=== PATIENT | male | born 1945 | race African-American/Black ===

== ENCOUNTER 2016-08-13 13:58 | Inpatient (IN) | payer OTHER ==
--- NOTE | 2016-08-13 14:02 | PDOC ---
History of Present Illness - General Chief Complaint: CVA/TIA Stated Complaint: CVA Time Seen by Provider: 08/13/16 14:00 ED Treatment Course - RADIOLOGY Radiology Studies Ordered: Category Date Time Status HEAD CT (STROKE) [CT] Stat CT Scan 08/13/16 14:00 Ordered CHEST X-RAY PORTABLE* [RAD] Stat Radiology 08/13/16 14:01 Ordered
--- NOTE | 2016-08-13 14:05 | PDOC ---
History of Present Illness - General History Source: Patient, EMS Exam Limitations: Clinical Condition - History of Present Illness Initial Comments: 08/13/16 13:49 The patient is a 71 year old male, with a significant past medical history of HTN, HDL, CVA (October 2015 with no deficits) and bilateral blindness, who present to the emergency department via EMS today for further evaluation of left facial droop and right arm weakness for approximately 40 minutes prior to ER arrival. Information was obtained by EMS. As per EMS, at baseline the patient is alert, oriented, verbal and ambulatory. Today , the patient was in his home, watching television, when his home health aide noted that the patient was nonverbal, with left facial droop. EMS was activated. 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 Patient arrived to the ED at 13:49 (not registered until 13:58) and code ashley was activated at 13:51. No vomiting, headache No major surgeries No intestinal bleeding <Bunny hWitlock - Last Filed: 08/13/16 15:23> <Abhishek Xiong - Last Filed: 08/13/16 15:42> - General Chief Complaint: CVA/TIA Stated Complaint: CVA Time Seen by Provider: 08/13/16 13:58 Past History <Bunny Whitlock - Last Filed: 08/13/16 15:23> <Abhishek Xiong - Last Filed: 08/13/16 15:42> - Past Medical History Allergies/Adverse Reactions: Allergies Allergy/AdvReac Type Severity Reaction Status Date / Time No Known Allergies Allergy Verified 08/13/16 14:15 *Physical Exam - Physical Exam Comments: 08/13/16 13:49 GENERAL: Awake. Alert. Following commands and appropriately nodding yes/no to questions HEAD: Normal with no signs of trauma. EYES: Bilateral opacification of the pupils at baseline no visual acuity, extraocular movements intact with some horizontal nystagmus noted. ENT: Ears normal, nares patent, oropharynx clear without exudates. Moist mucous membranes. NECK: Normal range of motion, supple without lymphadenopathy, JVD, or masses. LUNGS: Breath sounds equal, clear to auscultation bilaterally. No wheeze/ crackles. HEART: Tachycardic, irregularly rate and rhythm. ABDOMEN: Soft/nontender/nondistended. BS wnl. No guarding or rebound. EXTREMITIES: Normal range of motion, no edema. No clubbing or cyanosis. No cords, erythema, or tenderness. NEUROLOGICAL: See NIHSS SKIN: Warm, Dry, normal turgor, no rashes or lesions noted. <MelinaalyxBunny - Last Filed: 08/13/16 15:23> NIH Stroke Scale - Last Known Well Date/Time & Onset Date Last Known Well: 08/13/16 Time Last Known Well: 13:10 - Initial Evaluation Level of consciousness: Alert Ask patient the month and their age: Answers both correctly Ask patient to open & close eyes; make fist and let go: Obeys both correctly Best gaze (horizontal eye movement): Normal Visual field testing: No visual field loss (baseline blind) Facial paresis (Show teeth/raise eyebrows/close eyes tight): Partial paralysis ( total or near paralysis of lower face) Motor Function: Left Arm: Normal Motor Function: Right Arm: No movement Motor Function: Left Leg: Normal (extends leg 30 degrees for 5 seconds without drift) Motor Function: Right Leg: Some effort against gravity Limb Ataxia: No ataxia Sensory(Use pinprick test arms,legs,trunk,face/side to side): Normal Best language (Describe picture, name items, read sentences): Mute Dysarthria (read several words): Near unintelligible or unable to speak Extinction and Inattention: No abnormality - Total Score NIH Stroke Scale Score: 13 <Abhishek Xiong - Last Filed: 08/13/16 15:42> tPA Exclusion Checklist 0-3hr - Thrombolytic Therapy Candidate Is the patient eligible for Thrombolytic Therapy?: Yes - Exclusion Criteria 0-3hr SBP greater than 185 or DBP greater than 110mmHg despite tx: No Recent IC/spinal surgery,head trauma or stroke w/in last 3mo: No Hx of previous IC hemorrhage, IC neoplasm, AVM or aneurysm: No Active internal bleeding: No Blding diathesis(low plt ct, inc PTT,INR>1.7 or use of NOAC): No Symptoms suggest subarachnoid hemorrhage: No CT demonstrates multilobar infarct(>1/3 cerebral hemiphere): No Arterial puncture at noncompressible site in previous 7 days: No Blood glucose concentration less than 50mg/dL (2.7mmol/L): No - Relative Exclusion Criteria 0-3h Life expectancy <1yr/severe co-morbid illness/STAFF TECHNOLOGIST on admit: No : No Patient/family refused: No Rapid improvement: No Stroke severity too mild: No Recent acute NE (w/in previous 3 months): No Seizure at onset with postictal residual neuro impairments: No Major surgery or serious trauma w/in previous 14 days: No Recent GI or hemorrhage (w/in previous 21 days): No <Abhishek Xiong - Last Filed: 08/13/16 15:42> Heart Score/ECG Review #1 ECG reviewed & interpreted by me at: 14:23 Compared to previous ECG there are: Previous ECG unavail 08/13/16 14:29 Afib at 81. QTC 439. No acute ischemia. <Abhishek Xiong - Last Filed: 08/13/16 15:42> Critical Care Time/MDM Note - Medical Decision Making Note: Patient rushed to CT on 13:54 Dr. Jimmy Hunter called at 13:57 Called office at 14:02. Informed that Neurologist, Dr. Charlotte Alfaro is in house. Response by Neurologist, Charlotte Alfaro. Case was discussed. Patient is a candidate for TPA. Accepts case. ETA in approximately 10 minutes. Neurology at bedside 14:20 TPA administered at 14:39 14:56. Overhead page to Staffing Operations Manager, Dr. Zev Moe. Case was discussed. Accepts case to the ICU. 15:00 MicroBlogged Hospitalist. 15:16 Hospitalist, Dr. Duane Franco responded to the MicroBlog. Case was discussed. Accepts case. Documentation prepared by Bunny Whitlock, acting as hospitalist medical director for Abhishek Xiong MD. <Bunny Whitlock - Last Filed: 08/13/16 15:23> Total Critical Care Time: 105 Critical Care Statement: The care of this patient involved high complexity decision making to prevent further life threatening deterioration of the patient 's condition and/or to evalute & treat vital organ system(s) failure or risk of failure. - Medical Decision Making Note: 08/13/16 14:37 A portion of this note was documented by scribe services under my direction. I have reviewed the details of the note, within reason, and agree with the documentation with the following case summary and management plan written by me. 71-year-old male with no known past medical history brought in by EMS for acute stroke. Patient is baseline blind, but otherwise conversant and ambulatory. At around 1: 10 PM his home health aide noticed that he abruptly was unable to speak, had right facial weakness and right arm weakness. EMS was activated and stroke notification called. Patient arrived here at 1358, he was seen immediately upon arrival and code ho activated. Patient was noted to be in atrial fibrillation on monitor, but he has no known history of atrial fibrillation and denies being on any blood thinners. D/W Dr. Alfaro of neurology, who is on her way to the ED. NIH 13 2/2 R facial paralysis, aphasia, R arm paralysis, R leg weakness. Pt has no other complaints, denies BURTON. He was asked multiple times that this was new and acute onset and he nodded yes. He is following all commands clearly. Neurology at bedside at 1420. Pt's BP markedly elevated 225/120 and HR elevated , Afib with RVR. He is TPA candidate except for BP. Given Lopressor 10mg IV with rate control to 80s, BP to 210 systolic. Given Labetalol 20mg IV with BP improved to 195 systolic. TPA ordered (plts and INR WNL) but not yet TPA candidate given markedly elevated BP as of 1443. Giving additional dose of labetalol. 08/13/16 14:49 Pt's BP controlled to 180 systolic after Lopressor 10 and Labetalol 30mg (10mgx3 ). With neurology at bedside, decision made to start TPA. Bolus given at 1439 and infusion subsequently. Will start labetalol drip. 08/13/16 15:03 TPA drip infusing, labetalol drip infusing with maintain blood pressure of 180/ 110. CBC normal. Chemistries notable for troponin of 0.06, creatinine 1.6. Will proceed with admission to ICU. 08/13/16 15:[address] Franco for admission, Accepted to ICU by Dr. Moe. Neuro unchanged with dense aphasia and R sided weakness. BP improved awaiting ICU. <Abhishek Xiong - Last Filed: 08/13/16 15:42> Discharge Disposition <Bunny Whitlock - Last Filed: 08/13/16 15:23> - Discharge Dispostion Admit: Yes <Abhishek Xiong - Last Filed: 08/13/16 15:42> - Diagnosis CVA (cerebral vascular accident) Qualifiers: CVA mechanism: other Qualified Code(s): I63.8 - Other cerebral infarction - Discharge Dispostion Condition at time of disposition: Guarded ED Treatment Course - LABORATORY CBC & Chemistry Diagram: 08/13/16 14:00 08/13/16 14:00 - RADIOLOGY Radiograph Interpretation: 08/13/16 14:27 EXAM: CT/HEAD CT (STROKE) IMPRESSION: Rule out CVA. CT scan of the brain C-. Findings. Serial axial images of the brain were obtained from foramen magnum to the cranial vertex without intravenous contrast, coronal, sagittal reconstruction images.. There is no evidence of acute subarachnoid hemorrhage, acute intra-axial or extra- axial fluid collection consistent with subdural or epidural hematoma. No mass effect, midline shift, acute ischemic changes, herniation or edema is present. Old infarct is observed in the inferior medial aspect of the right cerebellum. Old postischemic encephalomalacia is observed in the right inferior occipital lobe, right hippocampus. Chronic ischemic changes are observed in the right frontal lobe, medial aspect of the right occipitoparietal region. Small lacunar infarct versus perivascular space is seen in the anterior limb of the internal capsule. The cortical sulci, sylvian fissures, perimesencephalic cisterns are not effaced. Examination of the bone windows show no fracture. The visualized paranasal sinuses and mastoid air cells are clear. Extensive calcification of the right ocular globe sclera. Hyperdense left ocular globe. Intracranial vascular calcifications are noted. Impression. No evidence of acute intracranial hemorrhage, edema, midline shift, mass effect, or skull fracture. No CT evidence of acute territorial infarction. Old infarct is observed in the inferior medial aspect of the right cerebellum. Old postischemic encephalomalacia is observed in the right inferior occipital lobe, right hippocampus. Chronic ischemic changes are observed in the right frontal lobe, medial aspect of the right occipitoparietal region. Small lacunar infarct versus perivascular space is seen in the anterior limb of the internal capsule. Critical correlation, follow-up imaging may be considered if indicated. <Bunny Whitlock - Last Filed: 08/13/16 15:23> - LABORATORY CBC & Chemistry Diagram: 08/13/16 14:00 08/13/16 14:00 <Abhishek Xiong - Last Filed: 08/13/16 15:42>
[2016-08-13] MEDS ORDERED: ALTEPLASE 100 MG VIAL IVPB STA (14:11)
[2016-08-13] MEDS ORDERED: ALTEPLASE 100MG 100 MG IVPB ONE (14:17)
[2016-08-13] MEDS ORDERED: METOPROLOL TARTRATE 5 MG/5 ML VIAL ONE (14:18)
[2016-08-13] MEDS ORDERED: LABETALOL HCL 5 MG/1 ML (200MG/40ML VIAL) IVPB ONE ×2 (14:25→14:57)
[2016-08-13 14:28] LABS: BASOPHIL 0.6 % (0-2.0); EOSINOPHIL 5.3 % (0-4.5); INR 1.23 (0.82-1.09); MCH 28.9 pg (25.7-33.7); MCHC 32.5 g/dl (32.0-35.9); MEAN CELL VOLUME 88.9 fl (80-96); MEAN PLT VOLUME 10.1 fl (7.5-11.1); NEUTROPHILS 47.6 % (42.8-82.8); PLATELET COUNT 223 K/MM3 (134-434); PROTHROMBIN TIME (PATIENT) 13.6 SEC (9.98-11.88); RDW 12.7 % (11.9-15.9); WHITE BLOOD COUNT 8.8 K/mm3 (4.0-10.0)
[2016-08-13] MEDS ORDERED: METOPROLOL TARTRATE 5 MG/5 ML VIAL IVPUSH ONE (14:30)
[2016-08-13] MEDS ORDERED: LABETALOL HCL 5 MG/1 ML (100MG/20 ML VIAL) IVPUSH ONE ×2 (14:30→14:48)
[2016-08-13 14:46] LABS: ALBUMIN 4.1 g/dl (3.4-5.0); BILIRUBIN,TOTAL 0.4 mg/dL (0.2-1.0); CALCIUM 8.6 mg/dL (8.5-10.1); CREATININE 1.6 mg/dL (0.7-1.3); TOT PROT 8.4 g/dl (6.4-8.2)
[2016-08-13 14:47] LABS: TROPONIN I 0.06 ng/ml (0.00-0.05)
--- NOTE | 2016-08-13 14:48 | CONSULT ---
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 Information was obtained by EMS. As per EMs, at baseline the patient is alert, oriented, verbal and ambulatory. Today , the patient was in his home, watching television, when his home health aide noted that the patient was nonverbal, with right facial droop. EMS was activated. 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 Patient arrived to the ED at 13:49 and code MyVerse was activated at 13:51. 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 Cardio/Vascular: Yes: CAD, HTN, Hyperlipdemia - Alcohol/Substance Use Hx Alcohol Use: No - Smoking History Smoking history: Never smoked Have you smoked in the past 12 months: No - Social History Usual Living Arrangement: Other Home Medications - Allergies Allergies/Adverse Reactions: Allergies Allergy/AdvReac Type Severity Reaction Status Date / Time No Known Allergies Allergy Verified 08/13/16 14:15 Review of Systems - Review of Systems Constitutional: reports: No Symptoms Eyes: reports: Other (bilateral blindness) Neck: reports: No Symptoms Cardiovascular: reports: No Symptoms Respiratory: reports: No Symptoms Endocrine: reports: No Symptoms Hematology/Lymphatic: reports: No Symptoms Psychiatric: reports: No Symptoms Physical Exam-Neuro Vital Signs: Vital Signs Temperature 98.7 F 08/13/16 14:17 Pulse Rate 110 H 08/13/16 14:17 Respiratory Rate 20 08/13/16 14:17 Blood Pressure 184/134 08/13/16 14:17 O2 Sat by Pulse Oximetry (%) 100 08/13/16 14:17 Constitutional: Yes: Well Nourished Neck: Yes: Supple, Trachea Midline Cardiovascular: Yes: Regular Rate and Rhythm, S1, S2 Respiratory: Yes: Regular, CTA Bilaterally Gastrointestinal: Yes: Normal Bowel Sounds, Soft Renal/: Yes: WNL Musculoskeletal: Yes: Muscle Weakness Edema: No Labs: CBC, BMP 08/13/16 14:00 INR, PTT INR 1.23 (0.82-1.09) H 08/13/16 14:00 - Neuro Exam Level Of Consciousness: Yes: Alert, Oriented to Person Eyes: Yes: Nystagmus Speech: Broca's Aphasia Dominant Hand: Right Cranial Nerves II-XII Intact: No DTR's: 1+ Left Bicep, 1+ Right Bicep, 1+ Left Tricep, 1+ Right Tricep, 1+ Left Brachioradialis, 1+ Right Brachioradialis, 1+ Left Achilles, 1+ Right Achilles Babinski: Absent Response to light touch: Abnormal Response to pain prick: Abnormal Response to temperature: Abnormal Response to vibration: Abnormal Motor Strength: 0/5: Right Arm, 5/5: Left Arm, Left Leg, Right Leg Gait: Deferred (NIHS is 11p 2p.not answering questions, 2p RCFP, 3p RUE weakness, 1p numbness RUE, 1p aphasia, 2p dysarthria, ) Imaging - Results Cat Scan: Report Reviewed, Image Reviewed Problem List - Problems (1) CVA (cerebral vascular accident) Code(s): I63.9 - CEREBRAL INFARCTION, UNSPECIFIED Assessment/Plan The patient is a 71 year old male, with a significant past medical history of HTN, HDL, CVA (October 2015 with no deficits) and bilateral blindness, who present to the emergency department via EMS today for further evaluation of left facial droop and right arm weakness for approximately 40 minutes prior to ER arrival. Information was obtained by EMS. As per EMs, at baseline the patient is alert, oriented, verbal and ambulatory. Today , the patient was in his home, watching television, when his home health aide noted that the patient was nonverbal, with left facial droop. EMS was activated. 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 Patient arrived to the ED at 13:49 and code ashley was activated at 13:51. NIHS is 11p. If we consider blindness is 14p. due to blindness LSN was 1.10pm. Symptoms started 1.11pm. tpa bolus 2.39pm. Impression: acute ischemic stroke. Plan: - admission to ICU, ivtpa patient. - stroke ivtpa order set. - keep SBP under 140mmHg - MRI brain stroke protocol - echocardiogram, doppler carotids, DVT prophylaxis. - PT/OT/ST. Will follow. Critical care time spent in ED. 40min.
[2016-08-13] MEDS: LABETALOL HCL INJECTION 1,000 MG in SODIUM CHLORIDE 800 ML IV SCH ×4 (15:34→22:00)
--- NOTE | 2016-08-13 15:59 | HP ---
CHIEF COMPLAINT: cva, a fib, htn emergency HISTORY OF PRESENT ILLNESS: H/o obtained from ed notes as patient is unable to speak, patient knobs his head on questioning The patient is a 71 year old male, with a significant past medical history of HTN, HDL, CVA (October 2015 with no deficits) and bilateral blindness, who present to the emergency department via EMS today for further evaluation of left facial droop and right arm weakness for approximately 40 minutes prior to ER arrival. Information was obtained by EMS. As per EMS, at baseline the patient is alert, oriented, verbal and ambulatory. Today , the patient was in his home, watching television, when his home health aide noted that the patient was nonverbal, with left facial droop. EMS was activated. Patient was noted to be in atrial fibrillation (however no prior hx; not on anticoagulants). Patient had recieved Tpa in ED. Denies nausea, vomiting, headache, chest pain , sob, diarrhiea, constipation, burning micturation. Patient answered by knobing his head. ER course was notable for: (1) Ct head, cbc, cmp (2)Tpa, labetalol drip (3) cxr, Recent Travel:no PAST MEDICAL HISTORY: HTN, hld, cva PAST SURGICAL HISTORY: Social History: Smoking: Alcohol: Drugs: Family History: Allergies NKDA No Known Allergies Allergy (Verified 08/13/16 14:15) HOME MEDICATIONS: not available REVIEW OF SYSTEMS patient knobs his head on questioning CONSTITUTIONAL: Absent: fever, chills, diaphoresis, CARDIOVASCULAR: Absent: chest pain, syncope, palpitations, RESPIRATORY: Absent: cough, shortness of breath, GASTROINTESTINAL: Absent: abdominal pain, abdominal distension, nausea, vomiting, diarrhea, GENITOURINARY: Absent: dysuria, frequency, urgency, hesitancy, flank pain MUSCULOSKELETAL: unable to move right upper limb HEMATOLOGIC/IMMUNOLOGIC: Absent: easy bleeding, easy bruising, neurological Absent: headache, Present : right side facial weakness and right upper limb weakness PHYSICAL EXAMINATION Vital Signs - 24 hr 08/13/16 08/13/16 08/13/16 14:15 14:17 14:28 Temperature 98.7 F Pulse Rate 91 H 110 H Pulse Rate [ 85 Apical] Respiratory 20 17 Rate Blood Pressure 184/134 184/134 Blood Pressure 205/126 [Left Arm] O2 Sat by Pulse 100 100 Oximetry (%) 08/13/16 08/13/16 08/13/16 14:30 14:36 14:40 Temperature Pulse Rate Pulse Rate [ 71 74 80 Apical] Respiratory 18 18 18 Rate Blood Pressure Blood Pressure 198/119 180/125 182/131 [Left Arm] O2 Sat by Pulse 100 100 100 Oximetry (%) 08/13/16 08/13/16 08/13/16 14:45 14:50 14:55 Temperature Pulse Rate Pulse Rate [ 82 74 75 Apical] Respiratory 19 18 18 Rate Blood Pressure Blood Pressure 186/119 176/117 183/125 [Left Arm] O2 Sat by Pulse 100 100 100 Oximetry (%) 08/13/16 08/13/16 15:10 15:55 Temperature 2 F L Pulse Rate Pulse Rate [ 71 74 Apical] Respiratory 18 18 Rate Blood Pressure Blood Pressure 160/108 189/121 [Left Arm] O2 Sat by Pulse 100 100 Oximetry (%) GENERAL: Awake, alert, and fully oriented, answers by knobbing his head HEAD: Normal with no signs of trauma. EYES: Bilateral opacification of the pupils at baseline no visual acuity, extraocular movements intact EARS, NOSE, THROAT: Ears normal, nares patent, oropharynx clear without exudates. Moist mucous membranes. NECK: Normal range of motion, supple without lymphadenopathy, LUNGS: Breath sounds equal, clear to auscultation bilaterally. No wheezes, and no crackles. No accessory muscle use. HEART: Tachycardia, irregular, no murmur, s1s2 normal ABDOMEN: Soft, nontender, not distended, normoactive bowel sounds, no guarding, no rebound, no masses. No hepatomegaly or splenomegaly. UPPER extremity; not moving right upper limb LOWER EXTREMITIES Normal range of motion, no edema. No clubbing or cyanosis. No cords, erythema, or tenderness. NEUROLOGICAL: facial paralysis on left side, tongue deviation on right side, smile deviation on right side, closes both eyes normally, losss of sensation on left forehead, and face, b/l lower limb moving, power 5/5, sensations intact, reflexes normal left upper limb power 5/5, sensation to fine touch intact, reflexes normal right upper limb power 0/5, sensation to fine touch not present PSYCHIATRIC: Cooperative. Appropriate mood and affect. SKIN: Warm, dry, normal turgor, no rashes or lesions noted. Laboratory Results - last 24 hr 12/27/16 12/27/16 12/27/16 14:00 14:00 14:00 WBC 8.8 RBC 5.02 Hgb 14.5 Hct 44.6 MCV 88.9 MCHC 32.5 RDW 12.7 Plt Count 223 MPV 10.1 Neutrophils % 47.6 Lymphocytes % 37.7 Monocytes % 8.8 Eosinophils % 5.3 H Basophils % 0.6 INR 1.23 H Sodium 139 Potassium 3.6 Chloride 101 Carbon Dioxide 29 Anion Gap 9 BUN 16 Creatinine 1.6 H Creat Clearance w eGFR 42.95 POC Glucometer Random Glucose 139 H Calcium 8.6 Total Bilirubin 0.4 AST 21 ALT 19 Alkaline Phosphatase 95 Creatine Kinase 352 H Creatine Kinase Index 0.9 CK-MB (CK-2) 3.084 CK-MB (CK-2) Rel Index Troponin I 0.06 H Total Protein 8.4 H Albumin 4.1 Triglycerides 163 H Cholesterol 211 H Total LDL Cholesterol 143 H HDL Cholesterol 54 Blood Type Antibody Screen 08/13/16 08/13/16 08/13/16 14:00 14:17 15:04 WBC RBC Hgb Hct MCV MCHC RDW Plt Count MPV Neutrophils % Lymphocytes % Monocytes % Eosinophils % Basophils % INR Sodium Potassium Chloride Carbon Dioxide Anion Gap BUN Creatinine Creat Clearance w eGFR POC Glucometer 173.78114 Random Glucose Calcium Total Bilirubin AST ALT Alkaline Phosphatase Creatine Kinase Creatine Kinase Index CK-MB (CK-2) CK-MB (CK-2) Rel Index Cancelled Troponin I Total Protein Albumin Triglycerides Cholesterol Total LDL Cholesterol HDL Cholesterol Blood Type B POSITIVE Antibody Screen Negative ASSESSMENT/PLAN: The patient is a 71 year old male, with a significant past medical history of HTN, HDL, CVA (October 2015 with no deficits) and bilateral blindness, who present to the emergency department via EMS today for further evaluation of left facial droop and right arm weakness and was diagnosed to have cva, a fib and htn emergency. Patient recieved Tpa in ED CVA- ischemic stroke right upper limb and right facial side weakness received Tpa in ED, symptoms still persist monitor for bleeding, nausea, vomiting, headache neurology consult appreciated admission to ICU, keep SBP under 140mmHg follow MRI brain stroke protocol follow echocardiogram, doppler carotids, follow PT/OT/ST. afib echo got one dose of metoprolol 20 mg in ed cardiac monitoring cardiology consult on labetalol drip HTN emergency on labetalol drip 2mg/min keep sbp below 140 evelin could be due to htn follow creatnine renal usg hld atorvastatin 40mg daily elevated trop i could be due to htn trend trop i repeat ekg cardiac monitoring cardiology consult don't repeat labs with in 24 hours of tpa, patient can bleed fluid ; ns 42 ml/hr electrolyte; after 24 hour nutrition npo dvt pro; low risk , patient got tpa gi pro : protonix Visit type - Emergency Visit Emergency Visit: Yes ED Registration Date: 08/13/16 Care time: The patient presented to the Emergency Department on the above date and was hospitalized for further evaluation of their emergent condition. - New Patient This patient is new to me today: Yes Date on this admission: 08/13/16 - Critical Care Critical Care patient: Yes Total Critical Care Time (in minutes): 45 Critical Care Statement: The care of this patient involved high complexity decision making to prevent further life threatening deterioration of the patient 's condition and/or to evalute & treat vital organ system(s) failure or risk of failure.
[2016-08-13 16:37] LABS: URINE APPEARANCE CLEAR; URINE BILIRUBIN NEGATIVE (NEGATIVE); URINE COLOR STRAW; URINE GLUCOSE (UA) NEGATIVE (NEGATIVE); URINE KETONE NEGATIVE (NEGATIVE); URINE LEUK ESTERASE NEGATIVE (NEGATIVE); URINE NITRITE NEGATIVE (NEGATIVE); URINE UROBILINOGEN NEGATIVE E.U./dl (0.2-1.0)
--- NOTE | 2016-08-13 16:51 | CONSULT ---
Consultation: REQUESTING PROVIDER: CONSULT REQUEST: We have been asked to medically evaluate this patient for CVA HISTORY OF PRESENT ILLNESS: Patient non-verbal and history was taken from ED note. 71 year old male, with a significant past medical history of HTN, HDL, CVA (October 2015 with no deficits ) and bilateral blindness, who present to the emergency department via EMS today for further evaluation of left facial droop and right arm weakness for approximately 40 minutes prior to ER arrival. Information was obtained by EMS. As per EMS, at baseline the patient is alert, oriented, verbal and ambulatory. Today , the patient was in his home, watching television, when his home health aide noted that the patient was nonverbal, with left facial droop. EMS was activated. Patient was noted to be in atrial fibrillation (however no prior hx ; not on anticoagulants). Patient had recieved Tpa in ED. REVIEW OF SYSTEMS: Unable to obtain as the patient is non-verbal. PHYSICAL EXAMINATION Vital Signs - 24 hr 08/13/16 08/13/16 08/13/16 13:58 14:15 14:17 Temperature 98.7 F Pulse Rate 91 H 110 H Pulse Rate [ Apical] Respiratory 20 Rate Blood Pressure 184/134 184/134 Blood Pressure [Left Arm] Blood Pressure [Right Arm] O2 Sat by Pulse 100 100 Oximetry (%) 08/13/16 08/13/16 08/13/16 14:28 14:30 14:36 Temperature Pulse Rate Pulse Rate [ 85 71 74 Apical] Respiratory 17 18 18 Rate Blood Pressure Blood Pressure 205/126 198/119 180/125 [Left Arm] Blood Pressure [Right Arm] O2 Sat by Pulse 100 100 100 Oximetry (%) 08/13/16 08/13/16 08/13/16 14:39 14:40 14:45 Temperature 97.5 F L Pulse Rate 74 Pulse Rate [ 80 82 Apical] Respiratory 18 18 19 Rate Blood Pressure 182/131 Blood Pressure 182/131 186/119 [Left Arm] Blood Pressure [Right Arm] O2 Sat by Pulse 100 100 100 Oximetry (%) 08/13/16 08/13/16 08/13/16 14:50 14:55 15:10 Temperature Pulse Rate Pulse Rate [ 74 75 71 Apical] Respiratory 18 18 18 Rate Blood Pressure Blood Pressure 176/117 183/125 160/108 [Left Arm] Blood Pressure [Right Arm] O2 Sat by Pulse 100 100 100 Oximetry (%) 08/13/16 08/13/16 08/13/16 15:15 15:27 15:34 Temperature Pulse Rate Pulse Rate [ 84 78 75 Apical] Respiratory 18 Rate Blood Pressure Blood Pressure 186/102 [Left Arm] Blood Pressure 166/108 186/102 171/117 [Right Arm] O2 Sat by Pulse 100 99 Oximetry (%) 08/13/16 08/13/16 15:45 15:55 Temperature 2 F L Pulse Rate Pulse Rate [ 74 88 Apical] Respiratory 18 19 Rate Blood Pressure Blood Pressure 189/121 [Left Arm] Blood Pressure 189/121 179/107 [Right Arm] O2 Sat by Pulse 100 97 Oximetry (%) GENERAL: obtunded and non verbal HEAD: Normal with no signs of trauma. EYES: Bilateral opacification of the pupils at baseline , no visual acuity. EARS, NOSE, THROAT: Ears normal, nares patent, oropharynx clear without exudates. Moist mucous membranes. NECK: Normal range of motion, supple without lymphadenopathy, JVD, or masses. LUNGS: Breath sounds equal, clear to auscultation bilaterally. No wheezes, and no crackles. No accessory muscle use. HEART:tachycardic normal S1 and S2 without murmur, rub or gallop. ABDOMEN: Soft, nontender, not distended, normoactive bowel sounds, no guarding, no rebound, no masses. No hepatomegaly or splenomegaly. MUSCULOSKELETAL: Normal range of motion at all joints. No bony deformities or tenderness. No CVA tenderness. UPPER EXTREMITIES: 2+ pulses, warm, well-perfused. No cyanosis. No clubbing. Cap refill <2 seconds. No peripheral edema. LOWER EXTREMITIES: 2+ pulses, warm, well-perfused. No calf tenderness. No peripheral edema. NEUROLOGICAL: facial paralysis on left side, tongue deviation on right side, smile deviation on right side, closes both eyes normally, losss of sensation on left forehead, and face, b/l lower limb moving, power 5/5, sensations intact, reflexes normal left upper limb power 5/5, sensation to fine touch intact, reflexes normal right upper limb power 0/5, sensation to fine touch not present PSYCHIATRIC: non verbal, responding only to painfull stimuli. Laboratory Results - last 24 hr 08/13/16 08/13/16 08/13/16 14:00 14:00 14:00 WBC 8.8 RBC 5.02 Hgb 14.5 Hct 44.6 MCV 88.9 MCHC 32.5 RDW 12.7 Plt Count 223 MPV 10.1 Neutrophils % 47.6 Lymphocytes % 37.7 Monocytes % 8.8 Eosinophils % 5.3 H Basophils % 0.6 INR 1.23 H Sodium 139 Potassium 3.6 Chloride 101 Carbon Dioxide 29 Anion Gap 9 BUN 16 Creatinine 1.6 H Creat Clearance w eGFR 42.95 POC Glucometer Random Glucose 139 H Calcium 8.6 Total Bilirubin 0.4 AST 21 ALT 19 Alkaline Phosphatase 95 Creatine Kinase 352 H Creatine Kinase Index 0.9 CK-MB (CK-2) 3.084 CK-MB (CK-2) Rel Index Troponin I 0.06 H Total Protein 8.4 H Albumin 4.1 Triglycerides 163 H Cholesterol 211 H Total LDL Cholesterol 143 H HDL Cholesterol 54 Blood Type Antibody Screen 08/13/16 08/13/16 08/13/16 14:00 14:17 15:04 WBC RBC Hgb Hct MCV MCHC RDW Plt Count MPV Neutrophils % Lymphocytes % Monocytes % Eosinophils % Basophils % INR Sodium Potassium Chloride Carbon Dioxide Anion Gap BUN Creatinine Creat Clearance w eGFR POC Glucometer [id number] Random Glucose Calcium Total Bilirubin AST ALT Alkaline Phosphatase Creatine Kinase Creatine Kinase Index CK-MB (CK-2) CK-MB (CK-2) Rel Index Cancelled Troponin I Total Protein Albumin Triglycerides Cholesterol Total LDL Cholesterol HDL Cholesterol Blood Type B POSITIVE Antibody Screen Negative Active Medications Generic Name Dose Route Start Last Admin Trade Name Freq PRN Reason Stop Dose Admin Labetalol HCl 1,000 mg/ Sodium 1,000 mls @ 120 mls/hr 08/13/16 15:00 08/13/16 15:34 Chloride IV 120 mls/hr TITR JED Administration 2 MG/MIN Sodium Chloride 1,000 mls @ 42 mls/hr 08/13/16 15:15 Normal Saline - IV ASDIR JED ASSESSMENT/PLAN: 71 yo M admitted for stroke s/p tpa. Neuro: * Seen by Dr. Alfaro * acute ischemic stroke * tpa bolus 2.39pm. * keep SBP under 140mmHg * MRI brain stroke protocol * echocardiogram, doppler carotids, DVT prophylaxis. * PT/OT/ST. * Labetolol drip 1000mg @ 2mg/min Dispo: We will continue to follow the patient. Thank you for this consultative opportunity. Visit type - Emergency Visit Emergency Visit: Yes ED Registration Date: 08/13/16 Care time: The patient presented to the Emergency Department on the above date and was hospitalized for further evaluation of their emergent condition. - New Patient This patient is new to me today: Yes Date on this admission: 08/14/16 - Critical Care Critical Care patient: Yes Total Critical Care Time (in minutes): 34 Critical Care Statement: The care of this patient involved high complexity decision making to prevent further life threatening deterioration of the patient 's condition and/or to evalute & treat vital organ system(s) failure or risk of failure.
[2016-08-13] MEDS ORDERED: PANTOPRAZOLE SODIUM 100 ML IVPB ONE (17:00)
--- NOTE | 2016-08-13 17:04 | PN ---
Teaching Attending Note Name of Resident: Danish Kaufman ATTENDING PHYSICIAN STATEMENT I saw and evaluated the patient. I reviewed the resident's note and discussed the case with the resident. I agree with the resident's findings and plan as documented. SUBJECTIVE: OBJECTIVE: Last Vital Signs Temp Pulse Resp BP Pulse Ox 2 F L 88 19 189/121 97 08/13/16 15:55 08/13/16 15:55 08/13/16 15:55 08/13/16 15:55 08/13/16 15:55 ASSESSMENT AND PLAN:
[2016-08-13 17:08] LABS: URINE BLOOD 1+ (NEGATIVE); URINE PROTEIN 1+ (NEGATIVE)
[2016-08-13 17:48] VITALS: BMI 28.4
[2016-08-13] MEDS: SODIUM CHLORIDE 1,000 ML IV SCH (18:00)
--- NOTE | 2016-08-13 18:27 | CONSULT ---
Consult Consult Specialty:: cardiology Reason for Consultation:: CVA; HTN - History of Present Illness Chief Complaint: Pt opens eyes to request; lethargic. History of Present Illness: The patient is a 71 year old black male, with a significant past medical history of HTN, HDL, CVA (October 2015 with no deficits) and bilateral blindness, who present to the emergency department via EMS today for further evaluation of left facial droop and right arm weakness for approximately 40 minutes prior to ER arrival. Information was obtained by EMS. As per EMS, at baseline the patient is alert, oriented, verbal and ambulatory. Today , the patient was in his home, watching television, when his home health aide noted that the patient was nonverbal, with left facial droop. EMS was activated. Patient was noted to be in atrial fibrillation (however no prior hx; not on anticoagulants). Patient arrived to the ED at 13:49 (not registered until 13:58) and code ashley was activated at 13:51; pt was given tPA. No vomiting, headache No major surgeries No intestinal bleeding - History Source History Provided By: Medical Record Limitations to Obtaining History: Other (acute CVA) - Past Medical History SKI TOPPER: Yes: CVA Cardio/Vascular: Yes: CAD, HTN, Hyperlipdemia Renal/: Yes: Renal Inusuff - Alcohol/Substance Use Hx Alcohol Use: No - Smoking History Smoking history: Never smoked Have you smoked in the past 12 months: No - Social History Usual Living Arrangement: Other Home Medications - Allergies Allergies/Adverse Reactions: Allergies Allergy/AdvReac Type Severity Reaction Status Date / Time No Known Allergies Allergy Verified 08/13/16 14:15 - Home Medications Home Medications: Ambulatory Orders Unobtainable [Unobtainable] 08/13/16 Review of Systems - Review of Systems Constitutional: reports: Weakness Eyes: reports: Other (hx blindness) Musculoskeletal: reports: Muscle Weakness Neurological: reports: Weakness - Risk Factors Known Risk Factors: Yes: Age, Gender, Hypercholesterolemia, Hypertension, Race, Other (hx CVA) Vital Signs: Vital Signs Temperature 98.5 F 08/13/16 17:00 Pulse Rate 72 08/13/16 17:30 Respiratory Rate 18 08/13/16 17:30 Blood Pressure 158/102 08/13/16 17:30 O2 Sat by Pulse Oximetry (%) 97 08/13/16 17:00 Constitutional: Yes: Other (lethargic) Eyes: Yes: Other (blindness) Renal/: No: Anuria Cardiovascular: Yes: Pulse Irregular JVD: No Carotid Bruit: No Heart Sounds: Yes: S1 (varies in intensity), S2 Murmur: Yes: Systolic Murmur, Grade 2 Musculoskeletal: Yes: Muscle Weakness Edema: No Peripheral Pulses WNL: Yes Neurological: Yes: Weakness - Other Data Labs, Other Data: INR, PTT INR 1.23 (0.82-1.09) H 08/13/16 14:00 Abnormal Lab Results 08/13/16 08/13/16 08/13/16 14:00 14:00 14:00 Eosinophils % 5.3 H INR 1.23 H Creatinine 1.6 H Random Glucose 139 H Creatine Kinase 352 H Troponin I 0.06 H Total Protein 8.4 H Triglycerides 163 H Cholesterol 211 H Total LDL Cholesterol 143 H Urine Protein Urine Blood 08/13/16 08/13/16 15:04 18:50 Eosinophils % INR Creatinine Random Glucose Creatine Kinase Troponin I 0.09 H D Total Protein Triglycerides Cholesterol Total LDL Cholesterol Urine Protein 1+ H Urine Blood 1+ H Imaging - Results Chest X-ray: Image Reviewed (no acute pathology) Cat Scan: Image Reviewed (old right infarct, including cerebellar; no gross acute infarct or bleed) EKG: Image Reviewed (AF) Problem List - Problems (1) CVA (cerebral vascular accident) Assessment/Plan: F/u with neurologist. Code(s): I63.9 - CEREBRAL INFARCTION, UNSPECIFIED Qualifiers: CVA mechanism: embolism (2) HTN (hypertension) Assessment/Plan: On labetalol IV; keep BP within parameters set by neurologist. ECHO for LVEF, wall thickness and wall motion. F/u TNI serially (initial small increase likely 2ndary to CVA); f/u EKG serially. F/u TSH. Code(s): I10 - ESSENTIAL (PRIMARY) HYPERTENSION (4) Hyperlipidemia Assessment/Plan: LDL cholesterol 143; triglycerides 163 mg/dL. Start hgh-dose atorvastatin (40-80 mg daily). Code(s): E78.5 - HYPERLIPIDEMIA, UNSPECIFIED (5) Atrial fibrillation Assessment/Plan: Pt is presently on Labetalol IV for BP; HR is presently well-controlled. Recommend starting systemic anticoagulation, eg warfarin or NOAC, as soon as cleared by neurologist to begin. Code(s): I48.91 - UNSPECIFIED ATRIAL FIBRILLATION
[2016-08-13 20:09] LABS: TROPONIN I 0.09 ng/ml (0.00-0.05)
--- NOTE | 2016-08-13 20:26 | CONSULT ---
Consult Consult Specialty:: Pulm/CC - History of Present Illness History of Present Illness: Pt is a 71yr old man with PMHx of HTN, HLD, CVA (10/31 without deficit) and bilateral congenital blindness. He presents to the ER with CC of left facial droop, rt arm weakness x40 minutes and being nonverbal per home health aide. In the ER code ho called. Of note pt also with new onset a-fib. Pt now s/p 90mg alteplase. Upon assessment pt on labetalol drip for BP control. Pt with RU/LE weakness, profound aphasia and difficulty with facial movements. - History Source History Provided By: Medical Record Limitations to Obtaining History: Clinical Condition - Past Medical History CAMPUS INTERVIEWS INTERN: Yes: CVA Cardio/Vascular: Yes: CAD, HTN, Hyperlipdemia - Alcohol/Substance Use Hx Alcohol Use: No - Smoking History Smoking history: Never smoked Have you smoked in the past 12 months: No - Social History Usual Living Arrangement: Other Home Medications - Allergies Allergies/Adverse Reactions: Allergies Allergy/AdvReac Type Severity Reaction Status Date / Time No Known Allergies Allergy Verified 08/13/16 14:15 - Home Medications Home Medications: Ambulatory Orders Unobtainable [Unobtainable] 08/13/16 Family Disease History - Family Disease History Family History: Unable to Obtain Review of Systems Unable to obtain ROS, reason: roseanne Physical Exam Vital Signs: Vital Signs Period Temp Pulse Resp BP Sys/Krishna Pulse Ox Last 24 Hr 2 F-98.7 F 68-110 17-21 146-205/87-134 97-100 Intake & Output 08/10/16 08/11/16 08/12/16 08/13/16 23:59 23:59 23:59 23:59 Intake Total 400 Balance 400 Weight 209 lb 10.554 oz Constitutional: Yes: Well Nourished Eyes: Yes: Other (iris/pupil opaque bilaterally. hx of bilateral congenital blindness) HENT: Yes: Other (diffuse facial deficits) Cardiovascular: Yes: Pulse Irregular, Other (a-fib on tele) Respiratory: Yes: On Nasal O2, Other (no adventitious breath sounds appreciated) . No: SOB, Wheezes Gastrointestinal: Yes: Normal Bowel Sounds, Soft, Abdomen, Obese. No: Tenderness ...Rectal Exam: Yes: Deferred Musculoskeletal: Yes: Muscle Weakness (unable to move RUE, 1/6 RLE strength) Edema: No Peripheral Pulses WNL: Yes (+2 bilateral pedal pulses) Neurological: Yes: Aphasia, Facial Droop. No: Pre-Existing Deficit Labs: Abnormal Lab Results 08/13/16 08/13/16 08/13/16 14:00 14:00 14:00 Eosinophils % 5.3 H INR 1.23 H Creatinine 1.6 H Random Glucose 139 H Creatine Kinase 352 H Troponin I 0.06 H Total Protein 8.4 H Triglycerides 163 H Cholesterol 211 H Total LDL Cholesterol 143 H Urine Protein Urine Blood 08/13/16 08/13/16 15:04 18:50 Eosinophils % INR Creatinine Random Glucose Creatine Kinase Troponin I 0.09 H D Total Protein Triglycerides Cholesterol Total LDL Cholesterol Urine Protein 1+ H Urine Blood 1+ H Imaging - Results Chest X-ray: Report Reviewed, Image Reviewed Cat Scan: Report Reviewed (head ct) Assessment/Plan Pt is a 71yr old man with PMHx of HTN, HLD, CVA (10/31 without deficit) and bilateral congenital blindness. Now in the ICU s/p presumed ischemic stroke, s/ p alteplase. Pulm: -O2 support prn for sat >94% -If able, incentive spirometer -f/u repeat chest xray Neuro: Ischemic stroke -Dr. Gutierrez following -S/P 90mg Alteplase -pending MRI of the brain w/wo contrast, carotid doppler -Neuro checks q2 -SBP <140 per neuro -Pain management ID: -f/u cultures -Some opacities on chest xray, high aspiration risk, will start empiric Ceftriaxone. continue as clinically warranted -f/u lactic acid Cardio: New onset a-fib, hypertension. Case discussed with Dr. Dumont -a/c when cleared by neuro -Labetalol drip for bp control (SBP <140 per neuro) -f/u cardiac enzymes -Repeat EKG -Statin Renal: -I/Os -Monitor BUN/Cr Prophylactic -Aspiration precautions -NPO for now pending speech and swallow
[2016-08-13] MEDS: ATORVASTATIN CA 40 MG TABLET (FP) PO SCH (21:32)
[2016-08-13] MEDS: MUPIROCIN 2% TOPICAL OINTMENT FOR DECOLONIZATION NS SCH (21:32)
[2016-08-13] MEDS: CHLORHEXIDINE GLUCONATE 4% CLEANSER FOR DECOLONIZATION TP SCH (21:32)
[2016-08-13] MEDS: CEFTRIAXONE 50 ML IVPB SCH (22:57)
[2016-08-14 07:10] LABS: BASOPHIL 0.3 % (0-2.0); EOSINOPHIL 3.3 % (0-4.5); MCH 28.8 pg (25.7-33.7); MCHC 32.4 g/dl (32.0-35.9); MEAN PLT VOLUME 10.8 fl (7.5-11.1); NEUTROPHILS 69.5 % (42.8-82.8); PLATELET COUNT 169 K/MM3 (134-434); RDW 13.1 % (11.9-15.9)
[2016-08-14 07:25] LABS: INR 1.57 (0.82-1.09); PROTHROMBIN TIME (PATIENT) 17.4 SEC (9.98-11.88)
[2016-08-14 07:34] LABS: BILIRUBIN,TOTAL 0.5 mg/dL (0.2-1.0); CALCIUM 7.7 mg/dL (8.5-10.1); CREATININE 1.5 mg/dL (0.7-1.3); TOT PROT 6.1 g/dl (6.4-8.2)
[2016-08-14 07:35] LABS: MAGNESIUM 1.6 mg/dL (1.8-2.4)
[2016-08-14 07:43] LABS: PHOSPHOROUS 3.7 mg/dL (2.5-4.9); TROPONIN I 0.08 ng/ml (0.00-0.05)
[2016-08-14] MEDS: MUPIROCIN 2% TOPICAL OINTMENT FOR DECOLONIZATION NS SCH ×2 (10:15→21:10)
[2016-08-14] MEDS: LABETALOL HCL INJECTION 1,000 MG in SODIUM CHLORIDE 800 ML IV SCH (10:20)
--- NOTE | 2016-08-14 11:34 | PN ---
Physical Exam: SUBJECTIVE: Patient seen and examined at bedside. Right sided weakness has improved. Patient is more awake and alert. Responds to questioning appropriately. Denies CP, BURTON, SOB, palpitations, abd. pain, N/V. OBJECTIVE: Vital Signs Period Temp Pulse Resp BP Sys/Krishna Pulse Ox Last 24 Hr 98 F-98.9 F 60-75 12-23 131-170/72-108 97-100 GENERAL: Awake and alert, non verbal HEAD: Normal with no signs of trauma. EYES: Bilateral opacification of the pupils at baseline , no visual acuity. EARS, NOSE, THROAT: Ears normal, nares patent, oropharynx clear without exudates. Moist mucous membranes. NECK: Normal range of motion, supple without lymphadenopathy, JVD, or masses. LUNGS: Breath sounds equal, clear to auscultation bilaterally. No wheezes, and no crackles. No accessory muscle use. HEART:tachycardic normal S1 and S2 without murmur, rub or gallop. ABDOMEN: Soft, nontender, not distended, normoactive bowel sounds, no guarding, no rebound, no masses. No hepatomegaly or splenomegaly. MUSCULOSKELETAL: Normal range of motion at all joints. No bony deformities or tenderness. No CVA tenderness. UPPER EXTREMITIES: 2+ pulses, warm, well-perfused. No cyanosis. No clubbing. Cap refill <2 seconds. No peripheral edema. LOWER EXTREMITIES: 2+ pulses, warm, well-perfused. No calf tenderness. No peripheral edema. NEUROLOGICAL: facial paralysis on left side, tongue deviation on right side, smile deviation on right side, closes both eyes normally, losss of sensation on left forehead, and face, b/l lower limb moving, power 5/5, sensations intact, reflexes normal left upper limb power 5/5, sensation to fine touch intact, reflexes normal right upper limb power 2/5, sensation to fine touch not present PSYCHIATRIC: non verbal, responding only to painfull stimuli. Laboratory Results - last 24 hr 08/13/16 08/13/16 08/14/16 18:50 18:50 05:27 WBC 7.0 RBC 4.03 Hgb 11.6 L D Hct 35.8 D MCV 89.0 MCHC 32.4 RDW 13.1 Plt Count 169 D MPV 10.8 Neutrophils % 69.5 D Lymphocytes % 18.6 D Monocytes % 8.3 Eosinophils % 3.3 Basophils % 0.3 INR PTT (Actin FS) Sodium Potassium Chloride Carbon Dioxide Anion Gap BUN Creatinine Creat Clearance w eGFR Random Glucose Calcium Phosphorus Magnesium Total Bilirubin AST ALT Alkaline Phosphatase Creatine Kinase 225 D Creatine Kinase Index CK-MB (CK-2) CK-MB (CK-2) Rel Index Cancelled Troponin I 0.09 H D Total Protein Albumin 08/14/16 08/14/16 08/14/16 05:27 05:27 05:27 WBC RBC Hgb Hct MCV MCHC RDW Plt Count MPV Neutrophils % Lymphocytes % Monocytes % Eosinophils % Basophils % INR 1.57 H PTT (Actin FS) 27.0 Sodium 142 Potassium 3.7 Chloride 106 Carbon Dioxide 26 Anion Gap 10 BUN 17 Creatinine 1.5 H Creat Clearance w eGFR 46.27 Random Glucose 105 D Calcium 7.7 L Phosphorus 3.7 Magnesium 1.6 L Total Bilirubin 0.5 D AST 14 L D ALT 12 D Alkaline Phosphatase 70 D Creatine Kinase 320 H D Creatine Kinase Index 1.3 CK-MB (CK-2) 4.230 H CK-MB (CK-2) Rel Index Troponin I 0.08 H Total Protein 6.1 L D Albumin 3.0 L D 08/14/16 05:27 WBC RBC Hgb Hct MCV MCHC RDW Plt Count MPV Neutrophils % Lymphocytes % Monocytes % Eosinophils % Basophils % INR PTT (Actin FS) Sodium Potassium Chloride Carbon Dioxide Anion Gap BUN Creatinine Creat Clearance w eGFR Random Glucose Calcium Phosphorus Magnesium Total Bilirubin AST ALT Alkaline Phosphatase Creatine Kinase Creatine Kinase Index CK-MB (CK-2) CK-MB (CK-2) Rel Index Cancelled Troponin I Total Protein Albumin Active Medications Generic Name Dose Route Start Last Admin Trade Name Freq PRN Reason Stop Dose Admin Atorvastatin Calcium 40 mg 08/13/16 22:00 08/13/16 21:32 Lipitor - PO Not Given HS JED Chlorhexidine Gluconate 1 applic 08/13/16 22:00 08/13/16 21:32 Hibiclens For Decolonization - TP 1 applic HS JED Administration Sodium Chloride 1,000 mls @ 42 mls/hr 08/13/16 15:15 08/13/16 18:00 Normal Saline - IV 42 mls/hr ASDIR JED Administration Ceftriaxone Sodium 50 mls @ 100 mls/hr 08/13/16 22:00 08/13/16 22:57 Rocephin 1gm Ivpb (Pre-Docked) IVPB 100 mls/hr DAILY@2200 JED Administration Labetalol HCl 1,000 mg/ Sodium 1,000 mls @ 120 mls/hr 08/14/16 10:15 08/14/16 11:00 Chloride IV 0.75 mg/min TITR JED Titration Protocol 2 MG/MIN Mupirocin 1 applic 08/13/16 22:00 08/14/16 10:15 Bactroban Ointment (For Decolonization) - NS 08/18/16 21:59 1 applic BID JED Administration ASSESSMENT/PLAN: Pt is a 71yr old man with PMHx of HTN, HLD, CVA (10/31 without deficit) and bilateral congenital blindness admitted to ICU for ischemic stroke, s/p alteplase. Pulm: * O2 support prn for sat >94% * Aspiration precautions Neuro: * Ischemic stroke * Followed by Dr. Alfaro * S/P 90mg Alteplase yesterday 14:30 * pending MRI of the brain w/wo contrast, carotid doppler * Neuro checks q2 * SBP <140 per neuro * Pain management Cardio: * New onset a-fib, hypertension. * a/c resume when MRI done * Labetalol drip for bp control (SBP <140 per neuro) * trending cardiac enzymes * Repeat EKG * Statin once speak and swallow eval done. Renal: -I/Os -Monitor BUN/Cr Prophylactic * GI- PPI * NPO for now pending speech and swallow Visit type - Emergency Visit Emergency Visit: Yes ED Registration Date: 08/13/16 Care time: The patient presented to the Emergency Department on the above date and was hospitalized for further evaluation of their emergent condition. - New Patient This patient is new to me today: No - Critical Care Critical Care patient: Yes Total Critical Care Time (in minutes): 33 Critical Care Statement: The care of this patient involved high complexity decision making to prevent further life threatening deterioration of the patient 's condition and/or to evalute & treat vital organ system(s) failure or risk of failure.
[2016-08-14 12:00] LABS: BASOPHIL 0.8 % (0-2.0); EOSINOPHIL 4.8 % (0-4.5); MCH 29.5 pg (25.7-33.7); MEAN CELL VOLUME 89.5 fl (80-96); MEAN PLT VOLUME 10.1 fl (7.5-11.1); NEUTROPHILS 64.5 % (42.8-82.8); PLATELET COUNT 139 K/MM3 (134-434); RDW 12.7 % (11.9-15.9)
[2016-08-14] MEDS ORDERED: ASPIRIN 325 MG TABLET PO SCH (13:30)
--- NOTE | 2016-08-14 14:20 | PN ---
Teaching Attending Note Name of Resident: Presley Haney ATTENDING PHYSICIAN STATEMENT I saw and evaluated the patient. I reviewed the resident's note and discussed the case with the resident. I agree with the resident's findings and plan as documented. SUBJECTIVE: Pt seen and examined in the ICU. Some improvement in neuro exam. More strength in right extremities and improved speech. Atrial flutter seen on telemetry. On labetalol gtt for BP control. OBJECTIVE: Last Vital Signs Temp Pulse Resp BP Pulse Ox 14 F L 78 17 143/100 100 08/14/16 12:00 08/14/16 12:00 08/14/16 12:00 08/14/16 12:00 08/14/16 11:29 Intake & Output 08/11/16 08/12/16 08/13/16 08/14/16 23:59 23:59 23:59 23:59 Intake Total 400 1214 Output Total 700 400 Balance -300 814 Weight 209 lb 10.554 oz 205 lb 4.8 oz Gen: NAD at rest Heart: irregular Lung: decreased breath sounds at the bases Abd: soft, nontender Ext: no edema CBC, BMP 08/14/16 11:45 08/14/16 05:27 Active Medications Aspirin (Asa -) 325 mg PO DAILY [facility] Atorvastatin Calcium (Lipitor -) 40 mg PO HS [facility] Last Admin: 08/13/16 21:32 Dose: Not Given Chlorhexidine Gluconate (Hibiclens For Decolonization -) 1 applic TP HS [facility] Last Admin: 08/13/16 21:32 Dose: 1 applic Sodium Chloride (Normal Saline -) 1,000 mls @ 42 mls/hr IV ASDIR [facility] Last Admin: 08/13/16 18:00 Dose: 42 mls/hr Ceftriaxone Sodium (Rocephin 1gm Ivpb (Pre-Docked)) 50 mls @ 100 mls/hr IVPB DAILY@2200 [facility] Last Admin: 08/13/16 22:57 Dose: 100 mls/hr Labetalol HCl 1,000 mg/ Sodium (Chloride) 1,000 mls @ 120 mls/hr IV TITR JED; 2 MG/MIN PRN Reason: Protocol Last Titration: 08/14/16 11:00 Dose: 0.75 mg/min Mupirocin (Bactroban Ointment (For Decolonization) -) 1 applic NS BID [facility] Stop: 08/18/16 21:59 Last Admin: 08/14/16 10:15 Dose: 1 applic ASSESSMENT AND PLAN: Acute CVA with dense right hemiplegia s/p tPA HTN Hyperlipidemia h/o CVA Atrial Flutter CKD - MRI brain - ASA - start anticoagulation when ok with neuro - rate controlled - can d/c empiric antibiotics, CXR improved with no fevers or leukocytosis - taper off labetolol gtt - aspiration precautions - speech and swallow - rehab/PT - continue ICU monitoring
--- NOTE | 2016-08-14 15:05 | PN ---
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 Information was obtained by EMS. As per EMs, at baseline the patient is alert, oriented, verbal and ambulatory. Today , the patient was in his home, watching television, when his home health aide noted that the patient was nonverbal, with right facial droop. EMS was activated. Patient was noted to be in atrial fibrillation (however can piler hx; not on anticoagulants). Patient arrived to the ED at 13:49 and code ashley was activated at 13:51. - Current Medication List Current Medications: Active Medications Aspirin (Asa -) 325 mg PO DAILY JED Atorvastatin Calcium (Lipitor -) 40 mg PO HS [facility] Last Admin: 08/13/16 21:32 Dose: Not Given Chlorhexidine Gluconate (Hibiclens For Decolonization -) 1 applic TP HS [facility] Last Admin: 08/13/16 21:32 Dose: 1 applic Sodium Chloride (Normal Saline -) 1,000 mls @ 42 mls/hr IV ASDIR [facility] Last Admin: 08/13/16 18:00 Dose: 42 mls/hr Ceftriaxone Sodium (Rocephin 1gm Ivpb (Pre-Docked)) 50 mls @ 100 mls/hr IVPB DAILY@2200 [facility] Last Admin: 08/13/16 22:57 Dose: 100 mls/hr Labetalol HCl 1,000 mg/ Sodium (Chloride) 1,000 mls @ 120 mls/hr IV TITR JED; 2 MG/MIN PRN Reason: Protocol Last Titration: 08/14/16 14:00 Dose: 0.5 mg/min Mupirocin (Bactroban Ointment (For Decolonization) -) 1 applic NS BID [facility] Stop: 08/18/16 21:59 Last Admin: 08/14/16 10:15 Dose: 1 applic - Objective Vital Signs: Vital Signs Temperature 14 F L 08/14/16 12:00 Pulse Rate 78 08/14/16 12:00 Respiratory Rate 17 08/14/16 12:00 Blood Pressure 128/78 08/14/16 14:00 O2 Sat by Pulse Oximetry (%) 100 08/14/16 11:29 Constitutional: Yes: No Distress, Calm Eyes: Yes: Cataracts (blind bilaterally, calcifications, sclera opacifications) Neck: Yes: Supple, Trachea Midline Cardiovascular: Yes: Regular Rate and Rhythm, S1, S2 Respiratory: Yes: Regular, CTA Bilaterally Gastrointestinal: Yes: Normal Bowel Sounds, Soft Genitourinary: Yes: WNL Breast(s): Yes: WNL Musculoskeletal: Yes: WNL Extremities: Yes: WNL Edema: No Peripheral Pulses WNL: Yes Peripheral Pulses: Left Radial: 1+, Right Radial: 1+ Neurological: Yes: Alert, Oriented, Babinski negative, Dysarthria, Paresthesia, Weakness (NIHS is 11p = 3pvisual loss (chronic), 1p facial drop R, RUE 2p, 1p ataxia RUE, 1p RUE loss, 1p aphasia, 2pdysarthria,) Labs: CBC, BMP 08/14/16 11:45 08/14/16 05:27 INR, PTT INR 1.57 (0.82-1.09) H 08/14/16 05:27 Problem List - Problems (1) CVA (cerebral vascular accident) Code(s): I63.9 - CEREBRAL INFARCTION, UNSPECIFIED Qualifiers: CVA mechanism: embolism Precerebral and cerebral artery: middle cerebral artery, right Qualified Code(s): I63.411 - Cerebral infarction due to embolism of right middle cerebral artery Assessment/Plan The patient is a 71 year old male, with a significant past medical history of HTN, HDL, CVA (October 2015 with no deficits) and bilateral blindness, who present to the emergency department via EMS today for further evaluation of left facial droop and right arm weakness for approximately 40 minutes prior to ER arrival. Information was obtained by EMS. As per EMs, at baseline the patient is alert, oriented, verbal and ambulatory. Today , the patient was in his home, watching television, when his home health aide noted that the patient was nonverbal, with left facial droop. EMS was activated. Patient was noted to be in atrial fibrillation (however can piler hx; not on anticoagulants). Patient arrived to the ED at 13:49 and code ashley was activated at 13:51. NIHS is 11p today. The dysarthria and right arm weakness improved. He is able to raise the RUE from the bed. Impression: acute ischemic stroke post ivtpa. Plan: - ICU, ivtpa patient. - stroke ivtpa order set. - keep SBP under 140mmHg - MRI brain stroke protocol - if no bleeds start ASA po daily till anticoagulation per cardiology due to his new onset AFib. - echocardiogram, doppler carotids, DVT prophylaxis. - PT/OT/ST.Speech therapy . Swallow evaluation. - DVT prophylaxis- start lovenox sq or heparin. sq. Will follow. Critical care time spent in ED. 40min.
--- NOTE | 2016-08-14 15:12 | PN ---
Teaching Attending Note Name of Resident: Danish Kaufman ATTENDING PHYSICIAN STATEMENT I saw and evaluated the patient. I reviewed the resident's note and discussed the case with the resident. I agree with the resident's findings and plan as documented. SUBJECTIVE: Denies any pain , or SOB . feels better . denies BURTON , difficult communication due to aphasia . OBJECTIVE: NAD , slurred speech . knows he is in hospital HEENT: R lower facial droop, MMM, CV: irreg irreg. Lungs ; CTAB ext : no panda aover legs Neuro : limited exam. R lower facial droop. nl facial sensation . EOMI, can't evaluate pupils, tongue at mid line . strength 5/5 in LUE ,LLE , and RLE prox and distally . strength 0/5 at level of R hand and wrist. 4/5 at level of triceps , 3/5 bicpes , 2/5 at shoulder abduction . nl sensation to light touch over body . reflexes : 1+ knee jerk b/l . 0 at R biceps . 1+ L biceps ASSESSMENT AND PLAN: 71 y/o man with h/o CVA , blindness, HTN, HLP who presented with facial droop and aphasia . he was diagnosed with a stroke and given TPA . 1- Aphasia and R sided weakness, with facial droop: likely due to L MCA stroke. CT scan wit old strokes. Now gained some of his function and speech after TPA . -MRI pending . -carotid US pending - Echo reviewed. severe MR . - start aspirin. now > 24 hr ofter TPA . - will need full AC, due to A fib , but has to get MRI done first to r/o bleed after TPA . - decision of po AC, to be determined ( coumadin VS NOACs ) . I am not sure if he will qualify for NOACS with his severe MR , will d/w Card. risk of bleeding with falls will have to be addressed too given his blindness. - pt says he has a son , but no contact number is available for mRI screening or other discussions - keep BP < 140 - started on Statin . LDL goal < 70 2- New onset A fib: on tele , HR around 70. now on labetalol gtt . will switch to p labetalol when cleared by speech for po intake 3- HTN emergency : - cont labetalol gtt , switch to oral labetalol when cleared by speech 4- COURTNEY : likely form HTN emergency, but no previous records . ? CKD improved monitor 5- trop leak : possible NSTEMI due to demand ischemia . trnded down. ASA possible stress test when stable. appreciate Card Recs . 6- DVT px : SCDS for now Critical Care Time/MDM Note Total Critical Care Time: 45 Critical Care Statement: The care of this patient involved high complexity decision making to prevent further life threatening deterioration of the patient 's condition and/or to evalute & treat vital organ system(s) failure or risk of failure.
--- NOTE | 2016-08-14 15:17 | CONSULT ---
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 Cardiovascular: Yes: CAD, HTN, Hyperlipdemia Renal/: Yes: Renal Inusuff - Smoking History Smoking history: Never smoked Have you smoked in the past 12 months: No - Alcohol/Substance Use Hx Alcohol Use: No History - Admission Reason For Visit: CVA - Diagnostics X-ray: Report Reviewed CT Scan: Report Reviewed - General Mental Status: Awake and Alert, Able to Follow Commands, Intermittently Confused Attention: Distractible - Hearing Hearing: Normal Speech Evaluation - Communication Primary Language: TURKISH - Swallow Evaluation/Bedside Assessment Oral Secretions: Yes: WFL Tracheostomy Present: No Patient on Ventilator: No Dentition: Yes: Adequate Facial Symmetry at Rest: Facial Droop Right Facial Symmetry on Retraction: Facial Droop Right Facial Movement: Controlled Sensation: Reduced Right Jaw Position: Closed at Rest Pucker Lips: Droops Right, Reduced ROM Smile: Reduced ROM Lingual Movement: Deviates Right Lingual Speed of Movement: Reduced Lingual Movement Strgth Against Opposition: Normal Lingual Comment: slow Soft Palate Description: Normal Color Hard Palate Description: Normal Color Gag Reflex: Strong Bite Reflex: Absent Velopharyngeal Movement: Hypernasality Needs Assistance: Yes Rate of Intake: Slow/Holding Bolus Size: WFL Labial Seal: Impaired Right Chewing: WFL Oral Prep Time: Increased Pocketing: Clears Independently Timing of Swallow: Delayed Coughing/Throat Clear: No Change in Voice: No Recommendations - Dysphagia Impressions/Plan Dysphagia Impressions: Minimal Impairment Dysphagia Treatment Plan: Elevate HOB during feed Dysphagia Evaluation Summary: This 71 year old male presents with mild oropharyngeal dysphagia for soft solids due to slow bolus formation and mildly delayed pharyngeal swallows. There is no sign of aspiration observed for thin liquids, thickened liquids, purees or soft solids. SWITCH REPAIRER discussed with Pillo Cunningham RN, on unit. - Recommendations Diet Consistency: Mechanical Soft Medication Administration: Crushed with applesauce Liquids: Thin Liquids
[2016-08-14] MEDS ORDERED: LABETALOL HCL 100 MG TABLET (FP) PO ONE (16:30)
--- NOTE | 2016-08-14 16:59 | EKG ---
Test Reason : Blood Pressure : / mmHG Vent. Rate : 081 BPM Atrial Rate : 088 BPM P-R Int : 000 ms QRS Dur : 088 ms QT Int : 378 ms P-R-T Axes : 000 -10 095 degrees QTc Int : 439 ms ATRIAL FIBRILLATION NONSPECIFIC T WAVE ABNORMALITY , PROBABLY DIGITALIS EFFECT ABNORMAL ECG NO PREVIOUS ECGS AVAILABLE Confirmed by JONNY MANNING MD ([id number]) on 08/14/2016 4:59:04 PM Referred By: Overread By: JONNY MANNING MD
--- NOTE | 2016-08-14 17:01 | EKG ---
Test Reason : Blood Pressure : / mmHG Vent. Rate : 066 BPM Atrial Rate : 122 BPM P-R Int : 000 ms QRS Dur : 092 ms QT Int : 440 ms P-R-T Axes : 000 001 -10 degrees QTc Int : 461 ms ATRIAL FIBRILLATION CANNOT RULE OUT ANTERIOR INFARCT , AGE UNDETERMINED ABNORMAL ECG WHEN COMPARED WITH ECG OF 13-AUG-2016 18:38, NO SIGNIFICANT CHANGE WAS FOUND Confirmed by JONNY MANNING MD ([id number]) on 08/14/2016 5:00:26 PM Referred By: Overread By: JONNY MANNING MD
--- NOTE | 2016-08-14 17:07 | PN ---
Physical Exam: SUBJECTIVE: Patient seen and examined, Patient voice has slightly improved since yesterday. Still answer by moving his head. OBJECTIVE: Vital Signs Period Temp Pulse Resp BP Sys/Krishna Pulse Ox Last 24 Hr 14 F-98.9 F 60-78 12 128-158/72-108 100-100 GENERAL: Awake, alert, and fully oriented, answers by knobbing his head HEAD: Normal with no signs of trauma. NECK: Normal range of motion, supple without lymphadenopathy, LUNGS: Breath sounds equal, clear to auscultation bilaterally. No wheezes, and no crackles. No accessory muscle use. HEART: Tachycardia, irregular, no murmur, s1s2 normal ABDOMEN: Soft, nontender, not distended, normoactive bowel sounds, no guarding, no rebound, no masses. No hepatomegaly or splenomegaly. UPPER extremity; not moving right upper limb LOWER EXTREMITIES Normal range of motion, no edema. No clubbing or cyanosis. No cords, erythema, or tenderness. NEUROLOGICAL: facial paralysis on right side, tongue at midline, smile deviation on left side , closes both eyes normally, sensation better on right side than yesterday. left side sensation normal b/l lower limb moving, power 5/5, sensations intact, reflexes normal left upper limb power 5/5, sensation to fine touch intact, reflexes normal right upper limb strength 0/5 at level of R hand and wrist. 4/5 at level of triceps , 3/5 bicpes , 2/5 at shoulder abduction PSYCHIATRIC: Cooperative. Appropriate mood and affect. SKIN: Warm, dry, normal turgor, no rashes or lesions noted. Laboratory Results - last 24 hr 08/13/16 08/13/16 08/14/16 18:50 18:50 05:27 WBC 7.0 RBC 4.03 Hgb 11.6 L D Hct 35.8 D MCV 89.0 MCHC 32.4 RDW 13.1 Plt Count 169 D MPV 10.8 Neutrophils % 69.5 D Lymphocytes % 18.6 D Monocytes % 8.3 Eosinophils % 3.3 Basophils % 0.3 INR PTT (Actin FS) Sodium Potassium Chloride Carbon Dioxide Anion Gap BUN Creatinine Creat Clearance w eGFR Random Glucose Calcium Phosphorus Magnesium Total Bilirubin AST ALT Alkaline Phosphatase Creatine Kinase 225 D Creatine Kinase Index CK-MB (CK-2) CK-MB (CK-2) Rel Index Cancelled Troponin I 0.09 H D Total Protein Albumin 08/14/16 08/14/16 08/14/16 05:27 05:27 05:27 WBC RBC Hgb Hct MCV MCHC RDW Plt Count MPV Neutrophils % Lymphocytes % Monocytes % Eosinophils % Basophils % INR 1.57 H PTT (Actin FS) 27.0 Sodium 142 Potassium 3.7 Chloride 106 Carbon Dioxide 26 Anion Gap 10 BUN 17 Creatinine 1.5 H Creat Clearance w eGFR 46.27 Random Glucose 105 D Calcium 7.7 L Phosphorus 3.7 Magnesium 1.6 L Total Bilirubin 0.5 D AST 14 L D ALT 12 D Alkaline Phosphatase 70 D Creatine Kinase 320 H D Creatine Kinase Index 1.3 CK-MB (CK-2) 4.230 H CK-MB (CK-2) Rel Index Troponin I 0.08 H Total Protein 6.1 L D Albumin 3.0 L D 08/14/16 08/14/16 05:27 11:45 WBC 8.0 RBC 3.94 L Hgb 11.6 L Hct 35.3 L MCV 89.5 MCHC 33.0 RDW 12.7 Plt Count 139 MPV 10.1 Neutrophils % 64.5 Lymphocytes % 21.3 Monocytes % 8.6 Eosinophils % 4.8 H Basophils % 0.8 INR PTT (Actin FS) Sodium Potassium Chloride Carbon Dioxide Anion Gap BUN Creatinine Creat Clearance w eGFR Random Glucose Calcium Phosphorus Magnesium Total Bilirubin AST ALT Alkaline Phosphatase Creatine Kinase Creatine Kinase Index CK-MB (CK-2) CK-MB (CK-2) Rel Index Cancelled Troponin I Total Protein Albumin Active Medications Generic Name Dose Route Start Last Admin Trade Name Freq PRN Reason Stop Dose Admin Aspirin 325 mg 08/14/16 13:30 08/14/16 15:05 Asa - PO 325 mg DAILY JED Administration Atorvastatin Calcium 40 mg 08/13/16 22:00 08/13/16 21:32 Lipitor - PO Not Given HS JED Chlorhexidine Gluconate 1 applic 08/13/16 22:00 08/13/16 21:32 Hibiclens For Decolonization - TP 1 applic HS JED Administration Sodium Chloride 1,000 mls @ 42 mls/hr 08/13/16 15:15 08/13/16 18:00 Normal Saline - IV 42 mls/hr ASDIR JED Administration Ceftriaxone Sodium 50 mls @ 100 mls/hr 08/13/16 22:00 08/13/16 22:57 Rocephin 1gm Ivpb (Pre-Docked) IVPB 100 mls/hr DAILY@2200 [facility] Administration Labetalol HCl 1,000 mg/ Sodium 1,000 mls @ 120 mls/hr 08/14/16 10:15 08/14/16 14:00 Chloride IV 0.5 mg/min TITR JED Titration Protocol 2 MG/MIN Labetalol HCl 100 mg 08/15/16 10:00 Normodyne - PO BID JED Mupirocin 1 applic 08/13/16 22:00 08/14/16 10:15 Bactroban Ointment (For Decolonization) - NS 08/18/16 21:59 1 applic BID JED Administration ASSESSMENT/PLAN: The patient is a 71 year old male, with a significant past medical history of HTN, HDL, CVA (October 2015 with no deficits) and bilateral blindness, who present to the emergency department via EMS today for further evaluation of left facial droop and right arm weakness and was diagnosed to have cva, a fib and htn emergency. Patient recieved Tpa in ED CVA- ischemic stroke MRI report pending echo reviewed shows sever MR, carotid doppler pending got one dose of aspirin 325mg will start on ac after getting MRI report unable to find any contact infromation for patient relatives, patient doesn't remember his son phone number keep SBP < 140 started on po labetalol neurological assessment afib rate control, will start ac after getting mri report echo reviewed lillian HALL labetalol drip stopped started on po labetalol 100mg bid HTN emergency started on po labetalol 100mg bid evelin, could be from HTN emergency improving cr 1.6--->.1.5 hld atorvastatin 40mg daily elevated trop i could be due to demand ischemia on aspirin trending down trend trop cardiology on case fluid ; ns 42 ml/hr electrolyte; in am nutrition soft diet dvt pro; low risk , patient got tpa gi pro : not required dispo: admitted in icu Visit type - Emergency Visit Emergency Visit: Yes ED Registration Date: 08/13/16 Care time: The patient presented to the Emergency Department on the above date and was hospitalized for further evaluation of their emergent condition. - New Patient This patient is new to me today: No - Critical Care Critical Care patient: Yes Total Critical Care Time (in minutes): 45 Critical Care Statement: The care of this patient involved high complexity decision making to prevent further life threatening deterioration of the patient 's condition and/or to evalute & treat vital organ system(s) failure or risk of failure.
--- NOTE | 2016-08-14 17:12 | EKG ---
Test Reason : Blood Pressure : / mmHG Vent. Rate : 074 BPM Atrial Rate : 326 BPM P-R Int : 000 ms QRS Dur : 092 ms QT Int : 434 ms P-R-T Axes : 000 010 052 degrees QTc Int : 481 ms ATRIAL FLUTTER WITH VARIABLE A-V BLOCK SEPTAL INFARCT , AGE UNDETERMINED T WAVE ABNORMALITY, CONSIDER LATERAL ISCHEMIA ABNORMAL ECG WHEN COMPARED WITH ECG OF 13-AUG-2016 14:23, ATRIAL FLUTTER HAS REPLACED ATRIAL FIBRILLATION SEPTAL INFARCT IS NOW PRESENT T WAVE INVERSION NOW EVIDENT IN LATERAL LEADS Confirmed by KERRI PINTO, JONNY ([id number]) on 08/14/2016 5:12:34 PM Referred By: FARIBA FORTUNE DR Overread By: JONNY MANNING MD
[2016-08-14] MEDS: SODIUM CHLORIDE 1,000 ML IV SCH (17:59)
[2016-08-14] MEDS ORDERED: amLODIPine BESYLATE 5 MG TABLET (FP) PO ONE (20:00)
[2016-08-14] MEDS: ATORVASTATIN CA 40 MG TABLET (FP) PO SCH (21:10)
[2016-08-14] MEDS: CEFTRIAXONE 50 ML IVPB SCH (21:10)
[2016-08-14] MEDS: CHLORHEXIDINE GLUCONATE 4% CLEANSER FOR DECOLONIZATION TP SCH (21:10)
[2016-08-15] MEDS: SODIUM CHLORIDE 1,000 ML IV SCH ×2 (04:00→15:15)
[2016-08-15] MEDS: LABETALOL HCL INJECTION 1,000 MG in SODIUM CHLORIDE 800 ML IV SCH ×2 (06:00→10:15)
[2016-08-15 06:26] LABS: BASOPHIL 0.6 % (0-2.0); MCH 28.7 pg (25.7-33.7); MCHC 32.8 g/dl (32.0-35.9); MEAN CELL VOLUME 87.7 fl (80-96); MEAN PLT VOLUME 10.1 fl (7.5-11.1); NEUTROPHILS 62.5 % (42.8-82.8); PLATELET COUNT 168 K/MM3 (134-434); RDW 12.8 % (11.9-15.9); WHITE BLOOD COUNT 6.8 K/mm3 (4.0-10.0)
[2016-08-15 06:51] LABS: CALCIUM 7.3 mg/dL (8.5-10.1); MAGNESIUM 1.7 mg/dL (1.8-2.4)
[2016-08-15 06:58] LABS: BILIRUBIN,TOTAL 0.6 mg/dL (0.2-1.0); CREATININE 1.2 mg/dL (0.7-1.3); PHOSPHOROUS 3.2 mg/dL (2.5-4.9); TOT PROT 5.8 g/dl (6.4-8.2); TROPONIN I 0.06 ng/ml (0.00-0.05)
[2016-08-15] MEDS ORDERED: HEPARIN NA (PORCINE) 5,000 UNITS/ML 1ML VIAL IVPUSH PRN ×6 (07:57→18:04)
[2016-08-15] MEDS ORDERED: HEPARIN INFUSION - 500 ML IVPB SCH (08:00)
[2016-08-15] MEDS: MUPIROCIN 2% TOPICAL OINTMENT FOR DECOLONIZATION NS SCH ×2 (09:06→22:00)
[2016-08-15] MEDS ORDERED: MAGNESIUM SULF 50% (8.12 MEQ/2 ML-1 GM VIAL) IVPB ONE (09:07)
[2016-08-15 09:18] LABS: INR 1.37 (0.82-1.09); PROTHROMBIN TIME (PATIENT) 15.2 SEC (9.98-11.88)
[2016-08-15 09:21] LABS: ACTIVATED PTT 27.4 SECONDS (26.9-34.4)
[2016-08-15] MEDS ORDERED: LABETALOL HCL 100 MG TABLET (FP) PO ONE (09:50)
[2016-08-15] MEDS ORDERED: LABETALOL HCL 100 MG TABLET (FP) PO SCH ×2 (10:00)
--- NOTE | 2016-08-15 13:27 | PN ---
Teaching Attending Note Name of Resident: Danish Kaufman ATTENDING PHYSICIAN STATEMENT I saw and evaluated the patient. I reviewed the resident's note and discussed the case with the resident. I agree with the resident's findings and plan as documented. SUBJECTIVE: No fever or chills, denies any pain or SOB. feels irritation in urethra. OBJECTIVE: NAD , slurred speech ( improved ) . knows he is in hospital, knows his age . HEENT: R lower facial droop, MMM, corneal opacities CV: irreg irreg. Lungs ; CTAB Ext : no edema over legs Neuro : R lower facial droop. tongue at mid line . Nl facial sensation . EOMI , can't evaluate pupils due to corneal opacities, tongue at mid line . Strength 5/5 in LUE ,LLE , and RLE prox and distally . strength 0/5 at level of R hand and wrist. 5/5 at level of triceps , 4/5 bicpes , 2/5 at shoulder abduction . nl sensation to light touch over body . reflexes : 1+ knee jerk b/l . 0 at R biceps . 2+ L biceps ASSESSMENT AND PLAN: 71 y/o man with h/o CVA , blindness, HTN, HLP who presented with facial droop and aphasia . he was diagnosed with a stroke and given TPA . 1- Acute L parietal and frontal Lobe stroke : s/p TPA with partial improvement in symptoms Neuro exam is slightly better today . -MRI , CUS reviewed. - Start Heparin gtt as there is no ICH . decision on the best oral AC ( coumadin Vs NOAC) is to follow after discussion with family . d/w Dr. Alfaro - BP control - cont statin . dc Aspirin - speech eval done . 2- New onset A fib: tele reviewed. Rate is controlled on BB - cont Labetalol . HR controlled. - AC as above . 3- HTN emergency : - improved . stopped labetalol gtt today and increased po labetalol to 20 BID . BP was in 160s over night on gtt and 100 of po labetalol 4- COURTNEY : likely form HTN emergency, resolved 5- Trop leak : possible NSTEMI due to demand ischemia . trended down. Possible stress test when stable. appreciate Card Recs . 6- DVT px : on heparin gtt Diet : place on puree with thick liquids . cont speech eval . Critical Care Time/MDM Note Total Critical Care Time: 35 Critical Care Statement: The care of this patient involved high complexity decision making to prevent further life threatening deterioration of the patient 's condition and/or to evalute & treat vital organ system(s) failure or risk of failure.
--- NOTE | 2016-08-15 14:01 | PN ---
Teaching Attending Note Name of Resident: Presley Haney ATTENDING PHYSICIAN STATEMENT I saw and evaluated the patient. I reviewed the resident's note and discussed the case with the resident. I agree with the resident's findings and plan as documented. SUBJECTIVE: Patient seen and examined in the ICU. Awake and alert. Overall Neuro exam is better. Motor function on the right is has almost completely recuperated. Intake & Output 08/12/16 08/13/16 08/14/16 08/15/16 23:59 23:59 23:59 23:59 Intake Total 400 2332 1284 Output Total 700 800 950 Balance -300 1532 334 Weight 209 lb 10.554 oz 205 lb 4.8 oz 207 lb 1.6 oz Last Vital Signs Temp Pulse Resp BP Pulse Ox 98.3 F 68 18 146/81 97 08/15/16 13:00 08/15/16 13:00 08/15/16 13:00 08/15/16 13:00 08/15/16 08:00 Active Medications Atorvastatin Calcium (Lipitor -) 40 mg PO HS JED Last Admin: 08/14/16 21:10 Dose: 40 mg Chlorhexidine Gluconate (Hibiclens For Decolonization -) 1 applic TP HS JED Last Admin: 08/14/16 21:10 Dose: 1 applic Heparin Sodium (Porcine) (Heparin -) 1,000 unit IVPUSH PRN PRN PRN Reason: Heparin Heparin Sodium (Porcine) (Heparin -) 5,000 unit IVPUSH PRN PRN PRN Reason: Heparin Sodium Chloride (Normal Saline -) 1,000 mls @ 42 mls/hr IV ASDIR JED Last Admin: 08/15/16 04:00 Dose: 42 mls/hr Labetalol HCl 1,000 mg/ Sodium (Chloride) 1,000 mls @ 120 mls/hr IV TITR JED; 2 MG/MIN PRN Reason: Protocol Last Admin: 08/15/16 10:15 Dose: Not Given Heparin Sodium/Dextrose (Heparin Infusion -) 500 mls @ 20 mls/hr IVPB TITR JED ; 1,000 UNITS/HR PRN Reason: Protocol Last Admin: 08/15/16 10:21 Dose: 20 mls/hr Labetalol HCl (Normodyne -) 200 mg PO BID JED Mupirocin (Bactroban Ointment (For Decolonization) -) 1 applic NS BID JED Stop: 08/18/16 21:59 Last Admin: 08/15/16 09:06 Dose: 1 applic Gen: NAD at rest Heart: irregular Lung: decreased breath sounds at the bases Abd: soft, nontender Ext: no edema Laboratory Results - last 24 hr 08/15/16 08/15/16 08/15/16 05:20 05:20 05:20 WBC 6.8 RBC 3.77 L Hgb 10.8 L Hct 33.1 L MCV 87.7 MCHC 32.8 RDW 12.8 Plt Count 168 D MPV 10.1 Neutrophils % 62.5 Lymphocytes % 22.2 Monocytes % 7.7 Eosinophils % 7.0 H Basophils % 0.6 INR PTT (Actin FS) Sodium 139 Potassium 3.7 Chloride 108 H Carbon Dioxide 24 Anion Gap 7 L BUN 14 Creatinine 1.2 Creat Clearance w eGFR 59.86 Random Glucose 93 Calcium 7.3 L Phosphorus 3.2 Magnesium 1.7 L Total Bilirubin 0.6 AST 14 L ALT 12 Alkaline Phosphatase 65 Creatine Kinase 403 H D Creatine Kinase Index 0.9 CK-MB (CK-2) 3.718 H CK-MB (CK-2) Rel Index Cancelled Troponin I 0.06 H Total Protein 5.8 L Albumin 3.0 L 08/15/16 08:35 WBC RBC Hgb Hct MCV MCHC RDW Plt Count MPV Neutrophils % Lymphocytes % Monocytes % Eosinophils % Basophils % INR 1.37 H PTT (Actin FS) 27.4 Sodium Potassium Chloride Carbon Dioxide Anion Gap BUN Creatinine Creat Clearance w eGFR Random Glucose Calcium Phosphorus Magnesium Total Bilirubin AST ALT Alkaline Phosphatase Creatine Kinase Creatine Kinase Index CK-MB (CK-2) CK-MB (CK-2) Rel Index Troponin I Total Protein Albumin ASSESSMENT AND PLAN: Acute CVA with dense right hemiplegia s/p tPA HTN Hyperlipidemia h/o CVA Atrial Flutter CKD - ASA - AC - rate controlled - Monitor off ABX - aspiration precautions - BP control - Rehab/PT - Neuro unit Dr Moe CCTime 35"
--- NOTE | 2016-08-15 15:53 | PN ---
Progress Note, SOFTWARE APPLICATION TESTER - Note Progress Note: Patient seen at bedside for swallowing follow up. Awake and alert. Able to tolerate thin liquids, nectar thickened liquids, purees and very sof tsolids without overt signs of aspiration. Rx: Trial mechanical soft diet with thin liquids. Patient must sit up at 90 degrees and midline for meals and for 30 minutes afterwards. Slow rate of intake. Crush meds. Monitor nutritional and pulmonary status. SOFTWARE APPLICATION TESTER discussed with charge nurse [Maik] on unit.
--- NOTE | 2016-08-15 16:07 | PN ---
Physical Exam: SUBJECTIVE: Patient seen and examined at bedside. No overnight events. No new complaints. Patient is much better today. Denies CP, SOB, BURTON, palpitaions, N/V. OBJECTIVE: Vital Signs Period Temp Pulse Resp BP Sys/Krishna Pulse Ox Last 24 Hr 98.0 F-98.9 F 64-85 12-20 104-181/77-108 97-98 GENERAL: Awake and alert, non verbal HEAD: Normal with no signs of trauma. EYES: Bilateral opacification of the pupils at baseline , no visual acuity. EARS, NOSE, THROAT: Ears normal, nares patent, oropharynx clear without exudates. Moist mucous membranes. NECK: Normal range of motion, supple without lymphadenopathy, JVD, or masses. LUNGS: Breath sounds equal, clear to auscultation bilaterally. No wheezes, and no crackles. No accessory muscle use. HEART:tachycardic normal S1 and S2 without murmur, rub or gallop. ABDOMEN: Soft, nontender, not distended, normoactive bowel sounds, no guarding, no rebound, no masses. No hepatomegaly or splenomegaly. MUSCULOSKELETAL: Normal range of motion at all joints. No bony deformities or tenderness. No CVA tenderness. UPPER EXTREMITIES: 2+ pulses, warm, well-perfused. No cyanosis. No clubbing. Cap refill <2 seconds. No peripheral edema. LOWER EXTREMITIES: 2+ pulses, warm, well-perfused. No calf tenderness. No peripheral edema. NEUROLOGICAL: facial paralysis on left side, tongue deviation on right side, smile deviation on right side, closes both eyes normally, losss of sensation on left forehead, and face, b/l lower limb moving, power 5/5, sensations intact, reflexes normal left upper limb power 5/5, sensation to fine touch intact, reflexes normal right upper limb power 3/5, sensation to fine touch present PSYCHIATRIC: non verbal, responding only to painfull stimuli. Laboratory Results - last 24 hr 08/15/16 08/15/16 08/15/16 05:20 05:20 05:20 WBC 6.8 RBC 3.77 L Hgb 10.8 L Hct 33.1 L MCV 87.7 MCHC 32.8 RDW 12.8 Plt Count 168 D MPV 10.1 Neutrophils % 62.5 Lymphocytes % 22.2 Monocytes % 7.7 Eosinophils % 7.0 H Basophils % 0.6 INR PTT (Actin FS) Sodium 139 Potassium 3.7 Chloride 108 H Carbon Dioxide 24 Anion Gap 7 L BUN 14 Creatinine 1.2 Creat Clearance w eGFR 59.86 Random Glucose 93 Calcium 7.3 L Phosphorus 3.2 Magnesium 1.7 L Total Bilirubin 0.6 AST 14 L ALT 12 Alkaline Phosphatase 65 Creatine Kinase 403 H D Creatine Kinase Index 0.9 CK-MB (CK-2) 3.718 H CK-MB (CK-2) Rel Index Cancelled Troponin I 0.06 H Total Protein 5.8 L Albumin 3.0 L 08/15/16 08:35 WBC RBC Hgb Hct MCV MCHC RDW Plt Count MPV Neutrophils % Lymphocytes % Monocytes % Eosinophils % Basophils % INR 1.37 H PTT (Actin FS) 27.4 Sodium Potassium Chloride Carbon Dioxide Anion Gap BUN Creatinine Creat Clearance w eGFR Random Glucose Calcium Phosphorus Magnesium Total Bilirubin AST ALT Alkaline Phosphatase Creatine Kinase Creatine Kinase Index CK-MB (CK-2) CK-MB (CK-2) Rel Index Troponin I Total Protein Albumin Active Medications Generic Name Dose Route Start Last Admin Trade Name Freq PRN Reason Stop Dose Admin Atorvastatin Calcium 40 mg 08/13/16 22:00 08/14/16 21:10 Lipitor - PO 40 mg HS JED Administration Chlorhexidine Gluconate 1 applic 08/13/16 22:00 08/14/16 21:10 Hibiclens For Decolonization - TP 1 applic HS JED Administration Heparin Sodium (Porcine) 1,000 unit 08/15/16 07:57 Heparin - IVPUSH PRN PRN Heparin Heparin Sodium (Porcine) 5,000 unit 08/15/16 07:57 Heparin - IVPUSH PRN PRN Heparin Sodium Chloride 1,000 mls @ 42 mls/hr 08/13/16 15:15 08/15/16 04:00 Normal Saline - IV 42 mls/hr ASDIR JED Administration Labetalol HCl 1,000 mg/ Sodium 1,000 mls @ 120 mls/hr 08/14/16 10:15 08/15/16 10:15 Chloride IV Not Given TITR JED Protocol 2 MG/MIN Heparin Sodium/Dextrose 500 mls @ 20 mls/hr 08/15/16 08:00 08/15/16 10:21 Heparin Infusion - IVPB 20 mls/hr TITR JED Administration Protocol 1,000 UNITS/HR Labetalol HCl 200 mg 08/15/16 22:00 Normodyne - PO BID JED Mupirocin 1 applic 08/13/16 22:00 08/15/16 09:06 Bactroban Ointment (For Decolonization) - NS 08/18/16 21:59 1 applic BID JED Administration IMAGING: * [id number] MRI/BRAIN MRI W/O CONTRAST- IMPRESSION: Acute left frontal and left parietal cortical infarcts are seen. Chronic right cerebral and bilateral cerebellar infarcts are noted. Reported By: Eran Mathews MD 08/14/162004 * Carotid doppler:. IMPRESSION: Minimal atherosclerotic disease with no evidence of hemodynamically significant stenoses. Reported By: Vitor Patterson MD 08/15/16 1058 * Renal ultrasound: IMPRESSION: Unremarkable bilateral renal ultrasound. Reported By: Emily Gonzalez MD 08/15/16 1038 ASSESSMENT/PLAN: Pt is a 71yr old man with PMHx of HTN, HLD, CVA (10/31 without deficit) and bilateral congenital blindness admitted to ICU for ischemic stroke, s/p alteplase. Pulm: * O2 support prn for sat >94% * Aspiration precautions Neuro: * Ischemic stroke * Followed by Dr. Alfaro * S/P 90mg Alteplase 08/13/16 14:30 * MRI of the brain w/wo contrast reported above * carotid doppler as above * Neuro checks q2 * SBP <140 per neuro * Pain management Cardio: * New onset a-fib, hypertension. * Heparin SQ for anticoagulation * Labetalol drip switched to 100mg PO * trending cardiac enzymes * Repeat EKG * Statin once speak and swallow eval done. Renal: * renal us reported above. * I/Os * Monitor BUN/Cr Prophylactic * GI- PPI * DVT- heparin SQ F/E/N * IVF- D5 1/2NS * Electrolytes WNL * Thickened liquid wtih nectur for feeds. Visit type - Emergency Visit Emergency Visit: Yes ED Registration Date: 08/13/16 Care time: The patient presented to the Emergency Department on the above date and was hospitalized for further evaluation of their emergent condition. - New Patient This patient is new to me today: No - Critical Care Critical Care patient: Yes Total Critical Care Time (in minutes): 32 Critical Care Statement: The care of this patient involved high complexity decision making to prevent further life threatening deterioration of the patient 's condition and/or to evalute & treat vital organ system(s) failure or risk of failure.
--- NOTE | 2016-08-15 16:46 | PN ---
Physical Exam: SUBJECTIVE: Patient seen and examined OBJECTIVE: Vital Signs Period Temp Pulse Resp BP Sys/Krishna Pulse Ox Last 24 Hr 98.0 F-98.9 F 64-85 12-20 104-173/77-108 97-98 GENERAL: Awake, alert, and oriented, HEAD: Normal with no signs of trauma. LUNGS: Breath sounds equal, clear to auscultation bilaterally. No wheezes, and no crackles. No accessory muscle use. HEART: irregular, no murmur, s1s2 normal ABDOMEN: Soft, nontender, not distended, normoactive bowel sounds, no guarding, no rebound, no masses. No hepatomegaly or splenomegaly. LOWER EXTREMITIES Normal range of motion, no edema. No clubbing or cyanosis. No cords, erythema, or tenderness. NEUROLOGICAL: facial paralysis on right side, tongue at midline, smile deviation on left side improved since yesterday , closes both eyes normally, sensation better on right side than yesterday. left side sensation normal b/l lower limb moving, power 5/5, sensations intact, reflexes normal left upper limb power 5/5, sensation to fine touch intact, reflexes normal right upper limb strength 0/5 at level of R hand and wrist. 5/5 at level of triceps , 4/5 bicpes , shoulder abduction better than yesterday PSYCHIATRIC: Cooperative. Appropriate mood and affect. SKIN: Warm, dry, normal turgor, no rashes or lesions noted. Laboratory Results - last 24 hr 08/15/16 08/15/16 08/15/16 05:20 05:20 05:20 WBC 6.8 RBC 3.77 L Hgb 10.8 L Hct 33.1 L MCV 87.7 MCHC 32.8 RDW 12.8 Plt Count 168 D MPV 10.1 Neutrophils % 62.5 Lymphocytes % 22.2 Monocytes % 7.7 Eosinophils % 7.0 H Basophils % 0.6 INR PTT (Actin FS) Sodium 139 Potassium 3.7 Chloride 108 H Carbon Dioxide 24 Anion Gap 7 L BUN 14 Creatinine 1.2 Creat Clearance w eGFR 59.86 Random Glucose 93 Calcium 7.3 L Phosphorus 3.2 Magnesium 1.7 L Total Bilirubin 0.6 AST 14 L ALT 12 Alkaline Phosphatase 65 Creatine Kinase 403 H D Creatine Kinase Index 0.9 CK-MB (CK-2) 3.718 H CK-MB (CK-2) Rel Index Cancelled Troponin I 0.06 H Total Protein 5.8 L Albumin 3.0 L 08/15/16 08:35 WBC RBC Hgb Hct MCV MCHC RDW Plt Count MPV Neutrophils % Lymphocytes % Monocytes % Eosinophils % Basophils % INR 1.37 H PTT (Actin FS) 27.4 Sodium Potassium Chloride Carbon Dioxide Anion Gap BUN Creatinine Creat Clearance w eGFR Random Glucose Calcium Phosphorus Magnesium Total Bilirubin AST ALT Alkaline Phosphatase Creatine Kinase Creatine Kinase Index CK-MB (CK-2) CK-MB (CK-2) Rel Index Troponin I Total Protein Albumin Active Medications Generic Name Dose Route Start Last Admin Trade Name Freq PRN Reason Stop Dose Admin Atorvastatin Calcium 40 mg 08/13/16 22:00 08/14/16 21:10 Lipitor - PO 40 mg HS JED Administration Chlorhexidine Gluconate 1 applic 08/13/16 22:00 08/14/16 21:10 Hibiclens For Decolonization - TP 1 applic HS JED Administration Heparin Sodium (Porcine) 1,000 unit 08/15/16 07:57 Heparin - IVPUSH PRN PRN Heparin Heparin Sodium (Porcine) 5,000 unit 08/15/16 07:57 Heparin - IVPUSH PRN PRN Heparin Sodium Chloride 1,000 mls @ 42 mls/hr 08/13/16 15:15 08/15/16 15:15 Normal Saline - IV 42 mls/hr ASDIR JED Administration Heparin Sodium/Dextrose 500 mls @ 20 mls/hr 08/15/16 08:00 08/15/16 10:21 Heparin Infusion - IVPB 20 mls/hr TITR JED Administration Protocol 1,000 UNITS/HR Labetalol HCl 200 mg 08/15/16 22:00 Normodyne - PO BID JED Mupirocin 1 applic 08/13/16 22:00 08/15/16 09:06 Bactroban Ointment (For Decolonization) - NS 08/18/16 21:59 1 applic BID JED Administration [id number] MRI/BRAIN MRI W/O CONTRAST- IMPRESSION: Acute left frontal and left parietal cortical infarcts are seen. Chronic right cerebral and bilateral cerebellar infarcts are noted. Reported By: Eran Mathews MD 08/14/162004 * Carotid doppler:. IMPRESSION: Minimal atherosclerotic disease with no evidence of hemodynamically significant stenoses. Reported By: Vitor Patterson MD 08/15/16 1058 * Renal ultrasound: IMPRESSION: Unremarkable bilateral renal ultrasound. Reported By: Emily Gonzalez MD 08/15/16 1038 ASSESSMENT/PLAN: The patient is a 71 year old male, with a significant past medical history of HTN, HDL, CVA (October 2015 with no deficits) and bilateral blindness, who present to the emergency department via EMS today for further evaluation of left facial droop and right arm weakness and was diagnosed to have cva, a fib and htn emergency. Patient recieved Tpa in ED CVA- ischemic stroke MRI shows ischemic stroke echo reviewed shows sever MR, carotid doppler no significant stenosis recieved tpa in ed, keep SBP < 140 started on labetalol 200mg po bid, stop labetalol drip. neurological assessment afib rate control, and started on heparin drip for ac, echo reviewed sever MR on labetalol 200mg bid HTN emergency started on po labetalol 200mg bid monitor bp patient bp is increasing on po labetalol and had an episode of austyn. So we will add lisinopril 20mg evelin, could be from HTN emergency improving cr 1.6--->.1.2 hld atorvastatin 40mg daily elevated trop i could be due to demand ischemia trending down trend trop cardiology on case fluid ; ns 42 ml/hr electrolyte; in am nutrition thick liquid dvt proon heparin drip gi pro : not required dispo: admitted in icu Visit type - Emergency Visit Emergency Visit: Yes ED Registration Date: 08/13/16 Care time: The patient presented to the Emergency Department on the above date and was hospitalized for further evaluation of their emergent condition. - New Patient This patient is new to me today: No - Critical Care Critical Care patient: Yes Total Critical Care Time (in minutes): 45 Critical Care Statement: The care of this patient involved high complexity decision making to prevent further life threatening deterioration of the patient 's condition and/or to evalute & treat vital organ system(s) failure or risk of failure.
[2016-08-15] MEDS: HEPARIN INFUSION - 500 ML IVPB SCH (17:00)
[2016-08-15] MEDS ORDERED: LISINOPRIL 20 MG TABLET (FP) PO ONE (17:45)
[2016-08-15] MEDS ORDERED: SODIUM CHLORIDE 1,000 ML IV SCH (18:04)
--- NOTE | 2016-08-15 19:15 | PN ---
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 Information was obtained by EMS. As per EMs, at baseline the patient is alert, oriented, verbal and ambulatory. Today , the patient was in his home, watching television, when his home health aide noted that the patient was nonverbal, with right facial droop. EMS was activated. Patient was noted to be in atrial fibrillation (however palliative senior np hx; not on anticoagulants). Patient arrived to the ED at 13:49 and code gAuto was activated at 13:51. - Current Medication List Current Medications: Active Medications Atorvastatin Calcium (Lipitor -) 40 mg PO HS JED Chlorhexidine Gluconate (Hibiclens For Decolonization -) 1 applic TP HS JED Heparin Sodium (Porcine) (Heparin -) 1,000 unit IVPUSH PRN PRN PRN Reason: Heparin Heparin Sodium (Porcine) (Heparin -) 5,000 unit IVPUSH PRN PRN PRN Reason: Heparin Heparin Sodium/Dextrose (Heparin Infusion -) 500 mls @ 20 mls/hr IVPB TITR JED ; 1,000 UNITS/HR PRN Reason: Protocol Sodium Chloride (Normal Saline -) 1,000 mls @ 42 mls/hr IV ASDIR JED Labetalol HCl (Normodyne -) 200 mg PO BID JED Lisinopril (Prinivil) 20 mg PO DAILY JED Mupirocin (Bactroban Ointment (For Decolonization) -) 1 applic NS BID [facility] Stop: 08/18/16 21:59 - Objective Vital Signs: Vital Signs Temperature 97.9 F 08/15/16 18:00 Pulse Rate 823 H 08/15/16 18:00 Respiratory Rate 20 08/15/16 18:00 Blood Pressure 158/97 08/15/16 18:00 O2 Sat by Pulse Oximetry (%) 97 08/15/16 08:00 Constitutional: Yes: No Distress, Calm Eyes: Yes: Conjunctiva Clear, Cataracts HENT: Yes: Atraumatic, Normocephalic Neck: Yes: Supple, Trachea Midline Cardiovascular: Yes: Regular Rate and Rhythm, S1, S2 Respiratory: Yes: Regular, CTA Bilaterally Gastrointestinal: Yes: Normal Bowel Sounds, Soft Breast(s): Yes: WNL Musculoskeletal: Yes: Muscle Weakness Extremities: Yes: WNL Edema: No Peripheral Pulses WNL: Yes Peripheral Pulses: Left Radial: 1+, Right Radial: 1+ Neurological: Yes: Alert, Oriented, Aphasia, Babinski negative, Dysarthria, Weakness ...Motor Strength: RUE (RUE 3/5,) Psychiatric: Yes: Alert (severe aphasia expressive and dysarthria. Follows commands.) Labs: CBC, BMP 08/15/16 05:20 08/15/16 05:20 INR, PTT INR 1.37 (0.82-1.09) H 08/15/16 08:35 - ....Imaging MRI: Report Reviewed, Image Reviewed Problem List - Problems (1) CVA (cerebral vascular accident) Code(s): I63.9 - CEREBRAL INFARCTION, UNSPECIFIED Qualifiers: CVA mechanism: embolism (2) Atrial fibrillation Code(s): I48.91 - UNSPECIFIED ATRIAL FIBRILLATION Assessment/Plan The patient is a 71 year old male, with a significant past medical history of HTN, HDL, CVA (October 2015 with no deficits) and bilateral blindness, who present to the emergency department via EMS today for further evaluation of left facial droop and right arm weakness for approximately 40 minutes prior to ER arrival. Information was obtained by EMS. As per EMs, at baseline the patient is alert, oriented, verbal and ambulatory. Today , the patient was in his home, watching television, when his home health aide noted that the patient was nonverbal, with left facial droop. EMS was activated. Patient was noted to be in atrial fibrillation (however palliative senior np hx; not on anticoagulants). Patient arrived to the ED at 13:49 and code ashley was activated at 13:51. [employer] is 11p today. The dysarthria and right arm weakness improved. He is able to raise the RUE from the bed. Impression: acute ischemic stroke post ivtpa. MRI brain is positive for acute ischemic stroke on DWI. Plan: - ICU, ivtpa patient. - stroke ivtpa order set. - keep SBP under 140mmHg - MRI brain stroke protocol - started on anticoagulation per cardiology due to his new onset AFib. - echocardiogram, doppler carotids, DVT prophylaxis. - PT/OT/ST.Speech therapy . Swallow evaluation. - DVT prophylaxis Will follow. Critical care time spent in ED. 40min.
[2016-08-15] MEDS ORDERED: LABETALOL HCL 200 MG TABLET (FP) PO SCH (22:00)
[2016-08-15] MEDS: CHLORHEXIDINE GLUCONATE 4% CLEANSER FOR DECOLONIZATION TP SCH (22:45)
[2016-08-15] MEDS: ATORVASTATIN CA 40 MG TABLET (FP) PO SCH (22:45)
[2016-08-15] MEDS: LABETALOL HCL 200 MG TABLET (FP) PO SCH (22:46)
--- NOTE | 2016-08-16 03:43 | PN ---
Progress Note, Physician Chief Complaint: Pt is more alert; denies pain; moves all limbs on request. History of Present Illness: The patient is a 71 year old black male, with a significant past medical history of HTN, HDL, CVA (October 2015 with no deficits) and bilateral blindness, who present to the emergency department via EMS today for further evaluation of left facial droop and right arm weakness for approximately 40 minutes prior to ER arrival. Information was obtained by EMS. As per EMS, at baseline the patient is alert, oriented, verbal and ambulatory. Today , the patient was in his home, watching television, when his home health aide noted that the patient was nonverbal, with left facial droop. EMS was activated. Patient was noted to be in atrial fibrillation (however no prior hx; not on anticoagulants). Patient arrived to the ED at 13:49 (not registered until 13:58) and code ashley was activated at 13:51; pt was given tPA. No vomiting, headache No major surgeries No intestinal bleeding - Current Medication List Current Medications: Active Medications Atorvastatin Calcium (Lipitor -) 40 mg PO HS [facility] Last Admin: 08/15/16 22:45 Dose: 40 mg Chlorhexidine Gluconate (Hibiclens For Decolonization -) 1 applic TP HS [facility] Last Admin: 08/15/16 22:45 Dose: 1 applic Heparin Sodium (Porcine) (Heparin -) 1,000 unit IVPUSH PRN PRN PRN Reason: Heparin Heparin Sodium (Porcine) (Heparin -) 5,000 unit IVPUSH PRN PRN PRN Reason: Heparin Heparin Sodium/Dextrose (Heparin Infusion -) 500 mls @ 20 mls/hr IVPB TITR JED ; 1,000 UNITS/HR PRN Reason: Protocol Sodium Chloride (Normal Saline -) 1,000 mls @ 42 mls/hr IV ASDIR JED Last Admin: 08/15/16 22:44 Dose: 42 mls/hr Labetalol HCl (Normodyne -) 200 mg PO BID [facility] Last Admin: 08/15/16 22:46 Dose: 200 mg Lisinopril (Prinivil) 20 mg PO DAILY [facility] Mupirocin (Bactroban Ointment (For Decolonization) -) 1 applic NS BID [facility] Stop: 08/18/16 21:59 Last Admin: 08/15/16 22:00 Dose: 1 applic - Objective Vital Signs: Vital Signs Temperature 97.9 F 08/15/16 18:00 Pulse Rate 82 08/16/16 03:00 Respiratory Rate 22 08/16/16 03:00 Blood Pressure 169/99 08/16/16 03:00 O2 Sat by Pulse Oximetry (%) 99 08/15/16 21:00 Constitutional: Yes: Calm Eyes: Yes: Other (bilateral blindness) HENT: Yes: WNL Neck: Yes: WNL Cardiovascular: Yes: Pulse Irregular Respiratory: Yes: Regular Gastrointestinal: Yes: Soft ...Rectal Exam: Yes: Deferred Genitourinary: No: Anuria Breast(s): Yes: WNL Musculoskeletal: Yes: Muscle Weakness Extremities: Yes: Cool Edema: No Peripheral Pulses WNL: Yes Integumentary: Yes: WNL Neurological: Yes: Weakness Psychiatric: Yes: Other Labs: CBC, BMP 08/15/16 05:20 08/15/16 05:20 INR, PTT INR 1.37 (0.82-1.09) H 08/15/16 08:35 - ....Imaging Chest X-ray: Image Reviewed (no acute pathology) Other: Image Reviewed (telemetry: AF; controlled VR) Problem List - Problems (1) CVA (cerebral vascular accident) Assessment/Plan: MRI: acute left frontal and parietal cortical infarcts; old right cerebellar infarcts. F/u with neurologist. Recommend systemic anticoagulation for AF. Code(s): I63.9 - CEREBRAL INFARCTION, UNSPECIFIED Qualifiers: CVA mechanism: embolism (2) HTN (hypertension) Assessment/Plan: On labetalol IV; keep BP within parameters set by neurologist. May use ACEI or ARB, but follow renal parameters and electrolytes carefully. May also use amlodipine. ECHO for LVEF, wall thickness and wall motion. F/u TNI serially (initial small increase likely 2ndary to CVA); f/u EKG serially. F/u TSH. Code(s): I10 - ESSENTIAL (PRIMARY) HYPERTENSION (4) Hyperlipidemia Assessment/Plan: LDL cholesterol 143; triglycerides 163 mg/dL. Start hgh-dose atorvastatin (40-80 mg daily). Code(s): E78.5 - HYPERLIPIDEMIA, UNSPECIFIED (5) Atrial fibrillation Assessment/Plan: Pt is presently on Labetalol IV for BP; HR is presently well-controlled. May use ACEI or ARB. Recommend starting systemic anticoagulation, eg IV warfarin followed by warfarin or NOAC, as soon as cleared by neurologist to begin. acute left cortical infarcts. Code(s): I48.91 - UNSPECIFIED ATRIAL FIBRILLATION
--- NOTE | 2016-08-16 03:53 | PN ---
Progress Note, Physician Chief Complaint: Pt moves all limbs on request. Had period of AF with marked pause while coughing yesterday. History of Present Illness: The patient is a 71 year old black male, with a significant past medical history of HTN, HDL, CVA (October 2015 with no deficits) and bilateral blindness, who present to the emergency department via EMS today for further evaluation of left facial droop and right arm weakness for approximately 40 minutes prior to ER arrival. Information was obtained by EMS. As per EMS, at baseline the patient is alert, oriented, verbal and ambulatory. Today , the patient was in his home, watching television, when his home health aide noted that the patient was nonverbal, with left facial droop. EMS was activated. Patient was noted to be in atrial fibrillation (however no prior hx; not on anticoagulants). Patient arrived to the ED at 13:49 (not registered until 13:58) and code ashley was activated at 13:51; pt was given tPA. No vomiting, headache No major surgeries No intestinal bleeding - Current Medication List Current Medications: Active Medications Atorvastatin Calcium (Lipitor -) 40 mg PO HS JED Last Admin: 08/15/16 22:45 Dose: 40 mg Chlorhexidine Gluconate (Hibiclens For Decolonization -) 1 applic TP HS JED Last Admin: 08/15/16 22:45 Dose: 1 applic Heparin Sodium (Porcine) (Heparin -) 1,000 unit IVPUSH PRN PRN PRN Reason: Heparin Heparin Sodium (Porcine) (Heparin -) 5,000 unit IVPUSH PRN PRN PRN Reason: Heparin Heparin Sodium/Dextrose (Heparin Infusion -) 500 mls @ 20 mls/hr IVPB TITR JED ; 1,000 UNITS/HR PRN Reason: Protocol Sodium Chloride (Normal Saline -) 1,000 mls @ 42 mls/hr IV ASDIR JED Last Admin: 08/15/16 22:44 Dose: 42 mls/hr Labetalol HCl (Normodyne -) 200 mg PO BID JED Last Admin: 08/15/16 22:46 Dose: 200 mg Lisinopril (Prinivil) 20 mg PO DAILY JED Mupirocin (Bactroban Ointment (For Decolonization) -) 1 applic NS BID JED Stop: 08/18/16 21:59 Last Admin: 08/15/16 22:00 Dose: 1 applic - Objective Vital Signs: Vital Signs Temperature 97.9 F 08/15/16 18:00 Pulse Rate 82 08/16/16 03:00 Respiratory Rate 22 08/16/16 03:00 Blood Pressure 169/99 08/16/16 03:00 O2 Sat by Pulse Oximetry (%) 99 08/15/16 21:00 Constitutional: Yes: Calm Eyes: Yes: Other HENT: Yes: WNL Neck: Yes: WNL Cardiovascular: Yes: Pulse Irregular Respiratory: Yes: Regular Gastrointestinal: Yes: Soft Genitourinary: No: Anuria Breast(s): Yes: WNL Musculoskeletal: Yes: Muscle Weakness Extremities: Yes: Cool Edema: No Peripheral Pulses WNL: Yes Integumentary: Yes: WNL Neurological: Yes: Alert, Weakness Psychiatric: Yes: WNL Labs: CBC, BMP 08/15/16 05:20 08/15/16 05:20 INR, PTT INR 1.37 (0.82-1.09) H 08/15/16 08:35 - ....Imaging Other: Image Reviewed (telemetry: AF; occasional periods of slow VR) Problem List - Problems (1) CVA (cerebral vascular accident) Assessment/Plan: MRI: acute left frontal and parietal cortical infarcts; old right cerebellar infarcts. F/u with neurologist. On IV heparin. Code(s): I63.9 - CEREBRAL INFARCTION, UNSPECIFIED Qualifiers: CVA mechanism: embolism (2) HTN (hypertension) Assessment/Plan: On labetalol IV; keep BP within parameters set by neurologist. May use ACEI or ARB, but follow renal parameters and electrolytes carefully. May also use amlodipine. ECHO for LVEF, wall thickness and wall motion. F/u TNI serially (initial small increase likely 2ndary to CVA); f/u EKG serially. TSH WNL. Code(s): I10 - ESSENTIAL (PRIMARY) HYPERTENSION (4) Hyperlipidemia Assessment/Plan: LDL cholesterol 143; triglycerides 163 mg/dL. Started high-dose atorvastatin (40 mg daily). Code(s): E78.5 - HYPERLIPIDEMIA, UNSPECIFIED (5) Atrial fibrillation Assessment/Plan: Pt is presently on Labetalol IV for BP (periods of slow VR; would not increase dose). On IV warfarin; start warfarin or NOAC. acute left cortical infarcts. Code(s): I48.91 - UNSPECIFIED ATRIAL FIBRILLATION
[2016-08-16] MEDS ORDERED: LISINOPRIL 20 MG TABLET (FP) PO SCH (08:00)
[2016-08-16 08:19] LABS: BASOPHIL 0.9 % (0-2.0); EOSINOPHIL 4.8 % (0-4.5); MEAN PLT VOLUME 9.8 fl (7.5-11.1); NEUTROPHILS 64.4 % (42.8-82.8); PLATELET COUNT 154 K/MM3 (134-434); WHITE BLOOD COUNT 7.4 K/mm3 (4.0-10.0)
[2016-08-16 08:46] LABS: CALCIUM 7.5 mg/dL (8.5-10.1); CREATININE 1.2 mg/dL (0.7-1.3)
[2016-08-16] MEDS ORDERED: hydrALAZINE HCL 20 MG/ML VIAL IVPUSH ONE ×3 (09:35→15:34)
[2016-08-16] MEDS: LABETALOL HCL 200 MG TABLET (FP) PO SCH ×2 (09:44→21:16)
[2016-08-16] MEDS: LISINOPRIL 20 MG TABLET (FP) PO SCH (09:44)
[2016-08-16] MEDS: MUPIROCIN 2% TOPICAL OINTMENT FOR DECOLONIZATION NS SCH ×2 (09:46→21:16)
--- NOTE | 2016-08-16 11:49 | PN ---
Teaching Attending Note Name of Resident: Presley Haney ATTENDING PHYSICIAN STATEMENT I saw and evaluated the patient. I reviewed the resident's note and discussed the case with the resident. I agree with the resident's findings and plan as documented. SUBJECTIVE: Patient seen and examined in the ICU. Awake and alert. Overall Neuro exam is stable from yesterday. Denies CP or SOB. Intake & Output 08/13/16 08/14/16 08/15/16 08/16/16 23:59 23:59 23:59 23:59 Intake Total 400 2332 2178 804 Output Total 261 040 4209 1400 Balance -300 1532 328 -596 Weight 209 lb 10.554 oz 205 lb 4.8 oz 207 lb 1.6 oz 208 lb 14.4 oz Last Vital Signs Temp Pulse Resp BP Pulse Ox 98.9 F 84 17 166/92 99 08/16/16 11:06 08/16/16 11:06 08/16/16 11:06 08/16/16 11:06 08/16/16 08:32 Active Medications Atorvastatin Calcium (Lipitor -) 40 mg PO HS [facility] Last Admin: 08/15/16 22:45 Dose: 40 mg Chlorhexidine Gluconate (Hibiclens For Decolonization -) 1 applic TP HS JED Last Admin: 08/15/16 22:45 Dose: 1 applic Heparin Sodium (Porcine) (Heparin -) 1,000 unit IVPUSH PRN PRN PRN Reason: Heparin Heparin Sodium (Porcine) (Heparin -) 5,000 unit IVPUSH PRN PRN PRN Reason: Heparin Heparin Sodium/Dextrose (Heparin Infusion -) 500 mls @ 20 mls/hr IVPB TITR JED ; 1,000 UNITS/HR PRN Reason: Protocol Last Admin: 08/15/16 17:00 Dose: 23 mls/hr Labetalol HCl (Normodyne -) 200 mg PO BID [facility] Last Admin: 08/16/16 09:44 Dose: 200 mg Lisinopril (Prinivil) 40 mg PO DAILY [facility] Last Admin: 08/16/16 09:44 Dose: 40 mg Mupirocin (Bactroban Ointment (For Decolonization) -) 1 applic NS BID [facility] Stop: 08/18/16 21:59 Last Admin: 08/16/16 09:46 Dose: 1 applic Constitutional: Yes: Awake and alert, No Distress Eyes: Yes: Conjunctiva Clear, Cataracts HENT: Yes: Atraumatic, Normocephalic Neck: Yes: Supple, Trachea Midline Cardiovascular: Yes: Regular Rate and Rhythm, S1, S2 Respiratory: Yes: Regular, CTA Bilaterally Gastrointestinal: Yes: Normal Bowel Sounds, Soft Breast(s): Yes: WNL Musculoskeletal: Yes: Muscle Weakness Extremities: Yes: WNL Edema: No Peripheral Pulses WNL: Yes Peripheral Pulses: Left Radial: 1+, Right Radial: 1+ Neurological: Yes: Alert, Oriented, (+) Aphasia / Dysarthria ...Motor Strength: RUE (RUE 3/5,) Labs: Laboratory Results - last 24 hr 08/15/16 08/15/16 08/16/16 15:00 23:30 08:00 WBC RBC Hgb Hct MCV MCHC RDW Plt Count MPV Neutrophils % Lymphocytes % Monocytes % Eosinophils % Basophils % PTT (Actin FS) 34.3 58.5 H D Sodium 139 Potassium 3.4 L Chloride 106 Carbon Dioxide 24 Anion Gap 9 BUN 11 D Creatinine 1.2 Random Glucose 92 Calcium 7.5 L Troponin I 08/16/16 08/16/16 08:00 08:00 WBC 7.4 RBC 3.80 L Hgb 11.0 L Hct 33.4 L MCV 88.0 MCHC 33.0 RDW 13.0 Plt Count 154 MPV 9.8 Neutrophils % 64.4 Lymphocytes % 22.2 Monocytes % 7.7 Eosinophils % 4.8 H Basophils % 0.9 PTT (Actin FS) Sodium Potassium Chloride Carbon Dioxide Anion Gap BUN Creatinine Random Glucose Calcium Troponin I 0.08 H D ASSESSMENT AND PLAN: Acute CVA with dense right hemiplegia s/p tPA HTN Hyperlipidemia h/o CVA Atrial Flutter CKD - ASA - AC - rate controlled - Monitor off ABX - aspiration precautions - BP control - Rehab/PT - Neuro unit Dr Moe CCTime 35"
--- NOTE | 2016-08-16 12:05 | PN ---
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 Information was obtained by EMS. As per EMs, at baseline the patient is alert, oriented, verbal and ambulatory. Today , the patient was in his home, watching television, when his home health aide noted that the patient was nonverbal, with right facial droop. EMS was activated. Patient was noted to be in atrial fibrillation (however case filler hx; not on anticoagulants). Patient arrived to the ED at 13:49 and code ashley was activated at 13:51. - Current Medication List Current Medications: Active Medications Atorvastatin Calcium (Lipitor -) 40 mg PO HS [facility] Last Admin: 08/15/16 22:45 Dose: 40 mg Chlorhexidine Gluconate (Hibiclens For Decolonization -) 1 applic TP HS [facility] Last Admin: 08/15/16 22:45 Dose: 1 applic Heparin Sodium (Porcine) (Heparin -) 1,000 unit IVPUSH PRN PRN PRN Reason: Heparin Heparin Sodium (Porcine) (Heparin -) 5,000 unit IVPUSH PRN PRN PRN Reason: Heparin Heparin Sodium/Dextrose (Heparin Infusion -) 500 mls @ 20 mls/hr IVPB TITR JED ; 1,000 UNITS/HR PRN Reason: Protocol Last Admin: 08/15/16 17:00 Dose: 23 mls/hr Labetalol HCl (Normodyne -) 200 mg PO BID [facility] Last Admin: 08/16/16 09:44 Dose: 200 mg Lisinopril (Prinivil) 40 mg PO DAILY [facility] Last Admin: 08/16/16 09:44 Dose: 40 mg Mupirocin (Bactroban Ointment (For Decolonization) -) 1 applic NS BID [facility] Stop: 08/18/16 21:59 Last Admin: 08/16/16 09:46 Dose: 1 applic - Objective Vital Signs: Vital Signs Temperature 98.9 F 08/16/16 11:06 Pulse Rate 84 08/16/16 11:06 Respiratory Rate 17 08/16/16 11:06 Blood Pressure 166/92 08/16/16 11:06 O2 Sat by Pulse Oximetry (%) 99 08/16/16 10:00 Constitutional: Yes: No Distress, Calm Eyes: Yes: Cataracts, Other (bilaterally blindness) HENT: Yes: Atraumatic, Normocephalic Neck: Yes: Supple, Trachea Midline Cardiovascular: Yes: Regular Rate and Rhythm, S1, S2 Respiratory: Yes: Regular, CTA Bilaterally Gastrointestinal: Yes: Normal Bowel Sounds, Soft Neurological: Yes: Alert, Oriented, Aphasia, Ataxia, Babinski negative, Dysarthria, Facial Droop, Paresthesia ...Motor Strength: RUE (no drift but weakness in the wrist RUE. NIHS is 11p: 1p for RCFP, 3p blind, 1p RUE ataxia, 1p RUE sensory, 2p aphasia expressive, 2p severe dysarthria. 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 Information was obtained by EMS. As per EMs, at baseline the patient is alert, oriented, verbal and ambulatory. Today , the patient was in his home, watching television, when his home health aide noted that the patient was nonverbal, with left facial droop. EMS was activated. Patient was noted to be in atrial fibrillation (however case filler hx; not on anticoagulants). Patient arrived to the ED at 13:49 and code ashley was activated at 13:51. NIHS is 11p today. The dysarthria and right arm weakness improved. He is able to raise the RUE from the bed. Impression: acute ischemic stroke post ivtpa. MRI brain is positive for acute ischemic stroke on DWI. Plan: - seen in ICU - keep SBP under 140mmHg - on Heparin gtt. started on anticoagulation per cardiology due to his new onset AFib. - health care social worker consult for rehabilitation inpatient. - PT/OT/ST.Speech therapy . Swallow evaluation. - DVT prophylaxis Will follow. Critical care time spent in ED. 30min.
--- NOTE | 2016-08-16 13:40 | PN ---
Physical Exam: SUBJECTIVE: Patient seen and examined at bedside. He is moving ext. much better today. Continue to have some focal deficits. No overnight events. No new complaints. Denies CP, BURTON, SOB, palpitations, N/V. OBJECTIVE: Vital Signs Period Temp Pulse Resp BP Sys/Krishna Pulse Ox Last 24 Hr 97.9 F-99.9 F 71-823 14-24 153-193/87-106 99-99 GENERAL: Awake and alert, non verbal HEAD: Normal with no signs of trauma. EYES: Bilateral opacification of the pupils at baseline , no visual acuity. EARS, NOSE, THROAT: Ears normal, nares patent, oropharynx clear without exudates. Moist mucous membranes. NECK: Normal range of motion, supple without lymphadenopathy, JVD, or masses. LUNGS: Breath sounds equal, clear to auscultation bilaterally. No wheezes, and no crackles. No accessory muscle use. HEART:tachycardic normal S1 and S2 without murmur, rub or gallop. ABDOMEN: Soft, nontender, not distended, normoactive bowel sounds, no guarding, no rebound, no masses. No hepatomegaly or splenomegaly. MUSCULOSKELETAL: Normal range of motion at all joints. No bony deformities or tenderness. No CVA tenderness. UPPER EXTREMITIES: 2+ pulses, warm, well-perfused. No cyanosis. No clubbing. Cap refill <2 seconds. No peripheral edema. LOWER EXTREMITIES: 2+ pulses, warm, well-perfused. No calf tenderness. No peripheral edema. NEUROLOGICAL: facial paralysis on left side, tongue deviation on right side, smile deviation on right side, closes both eyes normally, losss of sensation on left forehead, and face, b/l lower limb moving, power 5/5, sensations intact, reflexes normal left upper limb power 5/5, sensation to fine touch intact, reflexes normal right upper limb power 3/5, sensation to fine touch present PSYCHIATRIC: non verbal, responding only to painfull stimuli. Laboratory Results - last 24 hr 08/15/16 08/15/16 08/16/16 15:00 23:30 08:00 WBC RBC Hgb Hct MCV MCHC RDW Plt Count MPV Neutrophils % Lymphocytes % Monocytes % Eosinophils % Basophils % PTT (Actin FS) 34.3 58.5 H D Sodium 139 Potassium 3.4 L Chloride 106 Carbon Dioxide 24 Anion Gap 9 BUN 11 D Creatinine 1.2 Random Glucose 92 Calcium 7.5 L Troponin I 08/16/16 08/16/16 08/16/16 08:00 08:00 11:35 WBC 7.4 RBC 3.80 L Hgb 11.0 L Hct 33.4 L MCV 88.0 MCHC 33.0 RDW 13.0 Plt Count 154 MPV 9.8 Neutrophils % 64.4 Lymphocytes % 22.2 Monocytes % 7.7 Eosinophils % 4.8 H Basophils % 0.9 PTT (Actin FS) Sodium Potassium Chloride Carbon Dioxide Anion Gap BUN Creatinine Random Glucose Calcium Troponin I 0.08 H D 0.07 H Active Medications Generic Name Dose Route Start Last Admin Trade Name Freq PRN Reason Stop Dose Admin Atorvastatin Calcium 40 mg 08/15/16 22:00 08/15/16 22:45 Lipitor - PO 40 mg HS JED Administration Chlorhexidine Gluconate 1 applic 08/15/16 22:00 08/15/16 22:45 Hibiclens For Decolonization - TP 1 applic HS JED Administration Heparin Sodium (Porcine) 1,000 unit 08/15/16 18:04 Heparin - IVPUSH PRN PRN Heparin Heparin Sodium (Porcine) 5,000 unit 08/15/16 18:04 Heparin - IVPUSH PRN PRN Heparin Heparin Sodium/Dextrose 500 mls @ 20 mls/hr 08/15/16 18:04 08/15/16 17:00 Heparin Infusion - IVPB 23 mls/hr TITR JED Administration Protocol 1,000 UNITS/HR Labetalol HCl 200 mg 08/15/16 22:00 08/16/16 09:44 Normodyne - PO 200 mg BID JED Administration Lisinopril 40 mg 08/16/16 10:00 08/16/16 09:44 Prinivil PO 40 mg DAILY JED Administration Mupirocin 1 applic 08/15/16 22:00 08/16/16 09:46 Bactroban Ointment (For Decolonization) - NS 08/18/16 21:59 1 applic BID JED Administration IMAGING: * [id number] MRI/BRAIN MRI W/O CONTRAST- IMPRESSION: Acute left frontal and left parietal cortical infarcts are seen. Chronic right cerebral and bilateral cerebellar infarcts are noted. Reported By: Eran Mathews MD 08/14/162004 * Carotid doppler:. IMPRESSION: Minimal atherosclerotic disease with no evidence of hemodynamically significant stenoses. Reported By: Vitor Patterson MD 08/15/16 1058 * Renal ultrasound: IMPRESSION: Unremarkable bilateral renal ultrasound. Reported By: Emily Gonzalez MD 08/15/16 1038 ASSESSMENT/PLAN: Pt is a 71yr old man with PMHx of HTN, HLD, CVA (10/31 without deficit) and bilateral congenital blindness admitted to ICU for ischemic stroke, s/p alteplase. Pulm: * O2 support prn for sat >94% * Aspiration precautions Neuro: * Ischemic stroke * Followed by Dr. Alfaro * S/P 90mg Alteplase 08/13/16 14:30 * MRI of the brain w/wo contrast reported above * carotid doppler as above * Neuro checks q2 * SBP <140 per neuro * significant improvement of motor and sensory of right side. * Pain management Cardio: * New onset a-fib, hypertension. * Heparin SQ for anticoagulation will start on coumadin 7.5 one time and check pt/inr in am * Labetalol 100mg PO daily and 5mg IV push hydralazine. * trending cardiac enzymes * Lipitor 40mg HS Renal: * renal us reported above. * I/Os * Monitor BUN/Cr Prophylactic * GI- PPI * DVT- heparin SQ F/E/N * IVF- D5 1/2NS * Electrolytes WNL * Thickened liquid wtih nectur for feeds. Dispo: Awaiting bed for transfer to 4W/4S Visit type - Emergency Visit Emergency Visit: Yes ED Registration Date: 08/13/16 Care time: The patient presented to the Emergency Department on the above date and was hospitalized for further evaluation of their emergent condition. - New Patient This patient is new to me today: No - Critical Care Critical Care patient: Yes Total Critical Care Time (in minutes): 33 Critical Care Statement: The care of this patient involved high complexity decision making to prevent further life threatening deterioration of the patient 's condition and/or to evalute & treat vital organ system(s) failure or risk of failure.
--- NOTE | 2016-08-16 13:46 | PN ---
Teaching Attending Note Name of Resident: Danish Kaufman ATTENDING PHYSICIAN STATEMENT I saw and evaluated the patient. I reviewed the resident's note and discussed the case with the resident. I agree with the resident's findings and plan as documented. SUBJECTIVE: Denies pain, feels better. no BURTON. OBJECTIVE: NAD , slurred speech . Oriented to location and year. HEENT: R lower facial droop, MMM, corneal opacities CV: irreg irreg. Lungs ; CTAB Ext : no edema over legs Neuro : R lower facial droop. tongue at mid line . Nl facial sensation . EOMI , can't evaluate pupils due to corneal opacities, tongue at mid line . Strength 5/5 in LUE ,LLE , and RLE prox and distally . Strength 0/5 at level of R hand and wrist. 5/5 at level of triceps , %/5 bicpes , 4/5 at shoulder abduction . nl sensation to light touch over body except L palm . reflexes : 1+ knee jerk b/ l . 0 at R biceps . 2+ L biceps ASSESSMENT AND PLAN: 71 y/o man with h/o CVA , blindness, HTN, HLP who presented with facial droop and aphasia . he was diagnosed with a stroke and given TPA . 1- Acute L parietal and frontal Lobe stroke : s/p TPA with partial improvement in symptoms Neuro exam is slightly better today . - cont Heparin gtt. Start coumad in 7.5 today - tight BP control - cont statin . - continued speech eval 2- New onset A fib: tele reviewed. Rate is controlled on BB , short pauses seen - cont Labetalol , try to avoid increasing BB due to the pauses - CHADSVASC score 6 .High risk for recurrent stroke . cont Heparin gtt. start coumadin . Unfortunately , no family can be reached. coumadin is a better option compared to NOACS given risk for fall and possible need for reversal. 3- HTN emergency : -BP cont to be elevated. goal < 140 . - cont 200 mg of labetalol BID , increase lisinopril to 40 . - PRN HZN as needed 4- COURTNEY : likely form HTN emergency, resolved 5- Trop leak : possible NSTEMI due to demand ischemia . trended down. Possible stress test when stable. appreciate Card Recs . 6- DVT px : on heparin gtt Diet : place on puree with thick liquids . cont speech eval . seen in ICU Critical Care Time/MDM Note Total Critical Care Time: 30 Critical Care Statement: The care of this patient involved high complexity decision making to prevent further life threatening deterioration of the patient 's condition and/or to evalute & treat vital organ system(s) failure or risk of failure.
--- NOTE | 2016-08-16 14:46 | PN ---
Physical Exam: SUBJECTIVE: Patient seen and examined OBJECTIVE: Vital Signs Period Temp Pulse Resp BP Sys/Krishna Pulse Ox Last 24 Hr 97.9 F-99.9 F 71-823 14-24 153-193/87-106 99-99 GENERAL: Awake, alert, and oriented, HEAD: Normal with no signs of trauma. LUNGS: Breath sounds equal, clear to auscultation bilaterally. No wheezes, and no crackles. No accessory muscle use. HEART: irregular, no murmur, s1s2 normal ABDOMEN: Soft, nontender, not distended, normoactive bowel sounds, no guarding, no rebound, no masses. No hepatomegaly or splenomegaly. LOWER EXTREMITIES Normal range of motion, no edema. No clubbing or cyanosis. No cords, erythema, or tenderness. NEUROLOGICAL: facial paralysis on right side, tongue at midline, smile deviation on left side improved since yesterday , closes both eyes normally, sensation better on right side than yesterday. left side sensation normal b/l lower limb moving, power 5/5, sensations intact, reflexes normal left upper limb power 5/5, sensation to fine touch intact, reflexes normal right upper limb strength 0/5 at level of R hand and wrist. 5/5 at level of triceps , 4/5 bicpes , shoulder abduction better than yesterday, sensation to fine touch absent on dorsal aspect of his hand PSYCHIATRIC: Cooperative. Appropriate mood and affect. SKIN: Warm, dry, normal turgor, no rashes or lesions noted. Laboratory Results - last 24 hr 08/15/16 08/15/16 08/16/16 15:00 23:30 08:00 WBC RBC Hgb Hct MCV MCHC RDW Plt Count MPV Neutrophils % Lymphocytes % Monocytes % Eosinophils % Basophils % PTT (Actin FS) 34.3 58.5 H D Sodium 139 Potassium 3.4 L Chloride 106 Carbon Dioxide 24 Anion Gap 9 BUN 11 D Creatinine 1.2 Random Glucose 92 Calcium 7.5 L Troponin I 08/16/16 08/16/16 08/16/16 08:00 08:00 11:35 WBC 7.4 RBC 3.80 L Hgb 11.0 L Hct 33.4 L MCV 88.0 MCHC 33.0 RDW 13.0 Plt Count 154 MPV 9.8 Neutrophils % 64.4 Lymphocytes % 22.2 Monocytes % 7.7 Eosinophils % 4.8 H Basophils % 0.9 PTT (Actin FS) Sodium Potassium Chloride Carbon Dioxide Anion Gap BUN Creatinine Random Glucose Calcium Troponin I 0.08 H D 0.07 H Active Medications Generic Name Dose Route Start Last Admin Trade Name Freq PRN Reason Stop Dose Admin Atorvastatin Calcium 40 mg 08/15/16 22:00 08/15/16 22:45 Lipitor - PO 40 mg HS JED Administration Chlorhexidine Gluconate 1 applic 08/15/16 22:00 08/15/16 22:45 Hibiclens For Decolonization - TP 1 applic HS JED Administration Heparin Sodium (Porcine) 1,000 unit 08/15/16 18:04 Heparin - IVPUSH PRN PRN Heparin Heparin Sodium (Porcine) 5,000 unit 08/15/16 18:04 Heparin - IVPUSH PRN PRN Heparin Heparin Sodium/Dextrose 500 mls @ 20 mls/hr 08/15/16 18:04 08/15/16 17:00 Heparin Infusion - IVPB 23 mls/hr TITR JED Administration Protocol 1,000 UNITS/HR Labetalol HCl 200 mg 08/15/16 22:00 08/16/16 09:44 Normodyne - PO 200 mg BID JED Administration Lisinopril 40 mg 08/16/16 10:00 08/16/16 09:44 Prinivil PO 40 mg DAILY JED Administration Mupirocin 1 applic 08/15/16 22:00 08/16/16 09:46 Bactroban Ointment (For Decolonization) - NS 08/18/16 21:59 1 applic BID JED Administration Warfarin Sodium 7.5 mg 08/16/16 18:00 Coumadin - PO 08/16/16 18:01 ONCE@1800 ONE [id number] MRI/BRAIN MRI W/O CONTRAST- IMPRESSION: Acute left frontal and left parietal cortical infarcts are seen. Chronic right cerebral and bilateral cerebellar infarcts are noted. Reported By: Eran Mathews MD 08/14/16 2005 * Carotid doppler:. IMPRESSION: Minimal atherosclerotic disease with no evidence of hemodynamically significant stenoses. Reported By: Vitor Patterson MD 08/15/16 1058 * Renal ultrasound: IMPRESSION: Unremarkable bilateral renal ultrasound. Reported By: Emily Gonzalez MD 08/15/16 1038 ASSESSMENT/PLAN: The patient is a 71 year old male, with a significant past medical history of HTN, HDL, CVA (October 2015 with no deficits) and bilateral blindness, who present to the emergency department via EMS today for further evaluation of left facial droop and right arm weakness and was diagnosed to have cva, a fib and htn emergency. Patient recieved Tpa in ED CVA- ischemic stroke MRI shows ischemic stroke echo reviewed shows lillian HALL, carotid doppler no significant stenosis recieved tpa in ed, keep SBP < 140 started on labetalol 200mg po bid, on lisinopril 40mg daily neurological assessment afib rate control, and on heparin drip for ac, will give coumadin 7.5mg and repeat inr in morning echo reviewed sever MR on labetalol 200mg bid HTN emergency started on po labetalol 200mg bid started on lisinopril 40 mg patient Bpis still high will give him, hydralazine 5 mg iv push patient had episode of austyn in night so will not increase dose of labetalol evelin, could be from HTN emergency improving cr 1.6--->.1.2 hld atorvastatin 40mg daily elevated trop i could be due to demand ischemia slightly incresed in morning 0.08, repeated after 6 hour showed trop decreased to 0.07 trend trop cardiology on case fluid ; stop fluid due to htn and patient accepting orally electrolyte; in am nutrition thick liquid dvt pro on heparin drip, gi pro : not required dispo: admitted in icu Visit type - Emergency Visit Emergency Visit: Yes ED Registration Date: 08/13/16 Care time: The patient presented to the Emergency Department on the above date and was hospitalized for further evaluation of their emergent condition. - New Patient This patient is new to me today: No - Critical Care Critical Care patient: Yes Total Critical Care Time (in minutes): 45 Critical Care Statement: The care of this patient involved high complexity decision making to prevent further life threatening deterioration of the patient 's condition and/or to evalute & treat vital organ system(s) failure or risk of failure.
--- NOTE | 2016-08-16 15:20 | PN ---
Progress Note, Physician Chief Complaint: Pt moves all limbs on request. Has a headache, and requests pain medication. History of Present Illness: The patient is a 71 year old black male, with a significant past medical history of HTN, HDL, CVA (October 2015 with no deficits) and bilateral blindness, who present to the emergency department via EMS today for further evaluation of left facial droop and right arm weakness for approximately 40 minutes prior to ER arrival. Information was obtained by EMS. As per EMS, at baseline the patient is alert, oriented, verbal and ambulatory. Today , the patient was in his home, watching television, when his home health aide noted that the patient was nonverbal, with left facial droop. EMS was activated. Patient was noted to be in atrial fibrillation (however no prior hx; not on anticoagulants). Patient arrived to the ED at 13:49 (not registered until 13:58) and code ashley was activated at 13:51; pt was given tPA. No vomiting, headache No major surgeries No intestinal bleeding - Current Medication List Current Medications: Active Medications Atorvastatin Calcium (Lipitor -) 40 mg PO HS [facility] Last Admin: 08/15/16 22:45 Dose: 40 mg Chlorhexidine Gluconate (Hibiclens For Decolonization -) 1 applic TP HS [facility] Last Admin: 08/15/16 22:45 Dose: 1 applic Heparin Sodium (Porcine) (Heparin -) 1,000 unit IVPUSH PRN PRN PRN Reason: Heparin Heparin Sodium (Porcine) (Heparin -) 5,000 unit IVPUSH PRN PRN PRN Reason: Heparin Heparin Sodium/Dextrose (Heparin Infusion -) 500 mls @ 20 mls/hr IVPB TITR JED ; 1,000 UNITS/HR PRN Reason: Protocol Last Admin: 08/15/16 17:00 Dose: 23 mls/hr Labetalol HCl (Normodyne -) 200 mg PO BID [facility] Last Admin: 08/16/16 09:44 Dose: 200 mg Lisinopril (Prinivil) 40 mg PO DAILY [facility] Last Admin: 08/16/16 09:44 Dose: 40 mg Mupirocin (Bactroban Ointment (For Decolonization) -) 1 applic NS BID [facility] Stop: 08/18/16 21:59 Last Admin: 08/16/16 09:46 Dose: 1 applic Warfarin Sodium (Coumadin -) 7.5 mg PO ONCE@1800 ONE Stop: 08/16/16 18:01 - Objective Vital Signs: Vital Signs Temperature 99.9 F H 08/16/16 15:06 Pulse Rate 74 08/16/16 15:06 Respiratory Rate 16 08/16/16 15:06 Blood Pressure 151/95 08/16/16 15:06 O2 Sat by Pulse Oximetry (%) 99 08/16/16 10:00 Constitutional: Yes: Anxious Eyes: Yes: Other HENT: Yes: WNL Neck: Yes: WNL Cardiovascular: Yes: Pulse Irregular Respiratory: Yes: Regular Gastrointestinal: Yes: Soft ...Rectal Exam: Yes: Deferred Genitourinary: No: Anuria Musculoskeletal: Yes: Muscle Weakness Extremities: Yes: Cool Edema: No Peripheral Pulses WNL: No Peripheral Pulses: Left Doralis Pedis: 1+, Right Dorsalis Pedis: 1+ Integumentary: Yes: WNL Neurological: Yes: Weakness Psychiatric: Yes: Alert, Oriented Labs: CBC, BMP 08/16/16 08:00 08/16/16 08:00 INR, PTT INR 1.37 (0.82-1.09) H 08/15/16 08:35 Abnormal Lab Results 08/15/16 08/16/16 08/16/16 23:30 08:00 08:00 RBC 3.80 L Hgb 11.0 L Hct 33.4 L Eosinophils % 4.8 H PTT (Actin FS) 58.5 H D Potassium 3.4 L Calcium 7.5 L Troponin I 08/16/16 08/16/16 08:00 11:35 RBC Hgb Hct Eosinophils % PTT (Actin FS) Potassium Calcium Troponin I 0.08 H D 0.07 H - ....Imaging Other: Image Reviewed (telemetry: AF with controlled VR) Problem List - Problems (1) CVA (cerebral vascular accident) Assessment/Plan: MRI: acute left frontal and parietal cortical infarcts; old right cerebellar infarcts. F/u with neurologist. On IV heparin until warfarin-->INR 2-3. Code(s): I63.9 - CEREBRAL INFARCTION, UNSPECIFIED Qualifiers: CVA mechanism: embolism (2) HTN (hypertension) Assessment/Plan: BP elevated (pt has a headache; if BP does not lower significantly after pain medication, may start PO hydralazine). On labetalol IV; keep BP within parameters set by neurologist. May use ACEI or ARB, but follow renal parameters and electrolytes carefully. ECHO for LVEF, wall thickness and wall motion. TNI maximum 0.08. TSH WNL. Code(s): I10 - ESSENTIAL (PRIMARY) HYPERTENSION (4) Hyperlipidemia Assessment/Plan: LDL cholesterol 143; triglycerides 163 mg/dL. Started high-dose atorvastatin (40 mg daily); keep LDL cholesterol < 70 mg/dL. Code(s): E78.5 - HYPERLIPIDEMIA, UNSPECIFIED (5) Atrial fibrillation Assessment/Plan: Pt is presently on Labetalol IV for BP (periods of slow VR; would not increase dose). On IV heparin until warfarin-->INR 2-3. acute left cortical infarcts. Code(s): I48.91 - UNSPECIFIED ATRIAL FIBRILLATION (6) Hypokalemia Assessment/Plan: repleted (f/u level); Mg 1.9. Code(s): E87.6 - HYPOKALEMIA
[2016-08-16] MEDS ORDERED: POTASSIUM CHLORIDE TABS 20 MEQ TABLET.ER (FP) PO SCH (15:30)
[2016-08-16] MEDS ORDERED: POTASSIUM CHLORIDE 40 MEQ/30 ML UNIT DOSE CUP ONE (15:58)
[2016-08-16] MEDS ORDERED: WARFARIN NA 7.5 MG TABLET (FP) PO ONE (18:00)
[2016-08-16] MEDS: HEPARIN INFUSION - 500 ML IVPB SCH (18:32)
[2016-08-16] MEDS: CHLORHEXIDINE GLUCONATE 4% CLEANSER FOR DECOLONIZATION TP SCH (21:16)
[2016-08-16] MEDS: ATORVASTATIN CA 40 MG TABLET (FP) PO SCH (21:16)
[2016-08-16] MEDS: hydrALAZINE HCL 25 MG TABLET (FP) PO SCH (21:16)
[2016-08-17] MEDS: hydrALAZINE HCL 25 MG TABLET (FP) PO SCH ×3 (05:26→22:49)
[2016-08-17 08:13] LABS: INR 1.42 (0.82-1.09); PROTHROMBIN TIME (PATIENT) 15.7 SEC (9.98-11.88)
[2016-08-17 08:15] LABS: ACTIVATED PTT 25.8 SECONDS (26.9-34.4)
--- NOTE | 2016-08-17 08:21 | PN ---
Physical Exam: SUBJECTIVE: Patient seen and examined Patient follows commands, comfortable with no acute distress. OBJECTIVE: Vital Signs Temperature 98.4 F 08/17/16 06:00 Pulse Rate 84 08/17/16 02:00 Respiratory Rate 20 08/17/16 06:00 Blood Pressure 165/90 08/17/16 06:00 O2 Sat by Pulse Oximetry (%) 95 08/16/16 22:00 GENERAL: Awake, alert, and oriented,NAd HEAD: Normal with no signs of trauma. LUNGS: Breath sounds equal, clear to auscultation bilaterally. No wheezes, and no crackles. No accessory muscle use. HEART: irregular-irregular, no murmur, s1s2 positive ABDOMEN: Soft, nontender, not distended, normoactive bowel sounds, no guarding, no rebound, no masses. No hepatomegaly or splenomegaly. LOWER EXTREMITIES Normal range of motion, no edema. No clubbing or cyanosis. No cords, erythema, or tenderness. NEUROLOGICAL: Right facial droop , tongue at midline, closes both eyes normally, b/l lower limb moving, power 5/5, sensations intact, reflexes normal left upper limb power 5/5, sensation to fine touch intact, reflexes normal, right upper limb strength 4/5 , patient cannot squeeze the right hand, hand is flaccid. 5/5 at level of triceps , 4/5 bicpes . PSYCHIATRIC: Cooperative. Appropriate mood and affect. SKIN: Warm, dry, normal turgor, no rashes or lesions noted. CBCD WBC 7.4 K/mm3 (4.0-10.0) 08/16/16 08:00 RBC 3.80 M/mm3 (4.00-5.60) L 08/16/16 08:00 Hgb 11.0 GM/dL (11.7-16.9) L 08/16/16 08:00 Hct 33.4 % (35.4-49) L 08/16/16 08:00 MCV 88.0 fl (80-96) 08/16/16 08:00 MCHC 33.0 g/dl (32.0-35.9) 08/16/16 08:00 RDW 13.0 % (11.9-15.9) 08/16/16 08:00 Plt Count 154 K/MM3 (134-434) 08/16/16 08:00 MPV 9.8 fl (7.5-11.1) 08/16/16 08:00 CMP Sodium 139 mmol/L (136-145) 08/16/16 08:00 Potassium 3.4 mmol/L (3.5-5.1) L 08/16/16 08:00 Chloride 106 mmol/L (98-107) 08/16/16 08:00 Carbon Dioxide 24 mmol/L (21-32) 08/16/16 08:00 Anion Gap 9 (8-16) 08/16/16 08:00 BUN 11 mg/dL (7-18) D 08/16/16 08:00 Creatinine 1.2 mg/dL (0.7-1.3) 08/16/16 08:00 Creat Clearance w eGFR 59.86 (>60) 08/15/16 05:20 Random Glucose 92 mg/dL (74-106) 08/16/16 08:00 Calcium 7.5 mg/dL (8.5-10.1) L 08/16/16 08:00 Total Bilirubin 0.6 mg/dL (0.2-1.0) 08/15/16 05:20 AST 14 U/L (15-37) L 08/15/16 05:20 ALT 12 U/L (12-78) 08/15/16 05:20 Alkaline Phosphatase 65 U/L (45-117) 08/15/16 05:20 Total Protein 5.8 g/dl (6.4-8.2) L 08/15/16 05:20 Albumin 3.0 g/dl (3.4-5.0) L 08/15/16 05:20 CARDIAC ENZYMES Creatine Kinase 403 IU/L (39-308) H D 08/15/16 05:20 Troponin I 0.07 ng/ml (0.00-0.05) H 08/16/16 11:35 Active Medications Generic Name Dose Route Start Last Admin Trade Name Freq PRN Reason Stop Dose Admin Atorvastatin Calcium 40 mg 08/15/16 22:00 08/16/16 21:16 Lipitor - PO 40 mg HS JED Administration Chlorhexidine Gluconate 1 applic 08/15/16 22:00 08/16/16 21:16 Hibiclens For Decolonization - TP Not Given HS JED Heparin Sodium (Porcine) 1,000 unit 08/15/16 18:04 Heparin - IVPUSH PRN PRN Heparin Heparin Sodium (Porcine) 5,000 unit 08/15/16 18:04 Heparin - IVPUSH PRN PRN Heparin Hydralazine HCl 25 mg 08/16/16 22:00 08/17/16 05:26 Apresoline - PO 25 mg TID JED Administration Heparin Sodium/Dextrose 500 mls @ 20 mls/hr 08/15/16 18:04 08/16/16 18:32 Heparin Infusion - IVPB 23 mls/hr TITR JED Administration Protocol 1,000 UNITS/HR Labetalol HCl 200 mg 08/15/16 22:00 08/16/16 21:16 Normodyne - PO 200 mg BID JED Administration Lisinopril 40 mg 08/16/16 10:00 08/16/16 09:44 Prinivil PO 40 mg DAILY JED Administration Mupirocin 1 applic 08/15/16 22:00 08/16/16 21:16 Bactroban Ointment (For Decolonization) - NS 08/18/16 21:59 Not Given BID [facility] Potassium Chloride 40 meq 08/17/16 10:00 Kcl Oral Solution - PO DAILY [facility] Medication Instructions Recorded Unobtainable [Unobtainable] 08/13/16 ASSESSMENT/PLAN: 71 y/o man with h/o CVA , blindness, HTN, HLP who presented with facial droop and aphasia . he was diagnosed with a stroke and given TPA . # Acute L parietal and frontal Lobe stroke : s/p TPA with partial improvement , on Heparin gtt. with coumad in 7.5 bridge, tight BP control - cont statin . continued speech eval. # New onset A fib: Rate is controlled on BB , cont Labetalol , try to avoid increasing BB due to the pauses - CHADSVASC score 6 .High risk for recurrent stroke . cont Heparin gtt. start coumadin . Coumadin is a better option compared to NOACS given risk for fall and possible need for reversal. # HTN emergency : BP cont to be elevated. goal < 140 . Cont 200 mg of labetalol BID ,will continue to monitor for now also on lisinopril 40 continue. - PRN HZN as needed # COURTNEY : likely form HTN emergency, resolved # Trop leak : possible NSTEMI due to demand ischemia . trended down. Possible stress test when stable. appreciate Card Recs . DVT px : on heparin gtt Diet : place on puree with thick liquids . cont speech eval . Visit type - Emergency Visit Emergency Visit: Yes ED Registration Date: 08/13/16 Care time: The patient presented to the Emergency Department on the above date and was hospitalized for further evaluation of their emergent condition. - New Patient This patient is new to me today: Yes Date on this admission: 08/17/16 - Critical Care Critical Care patient: No
[2016-08-17 09:00] LABS: CALCIUM 7.9 mg/dL (8.5-10.1); CREATININE 1.2 mg/dL (0.7-1.3)
[2016-08-17] MEDS: LISINOPRIL 20 MG TABLET (FP) PO SCH (09:13)
[2016-08-17] MEDS: LABETALOL HCL 200 MG TABLET (FP) PO SCH ×2 (09:14→22:49)
[2016-08-17] MEDS: POTASSIUM CHLORIDE 40 MEQ/30 ML UNIT DOSE CUP PO SCH (09:14)
[2016-08-17 09:53] LABS: MCH 29.4 pg (25.7-33.7); MCHC 33.2 g/dl (32.0-35.9); MEAN CELL VOLUME 88.6 fl (80-96); MEAN PLT VOLUME 11.4 fl (7.5-11.1); PLATELET COUNT 159 K/MM3 (134-434); RDW 12.9 % (11.9-15.9); WHITE BLOOD COUNT 7.6 K/mm3 (4.0-10.0)
--- NOTE | 2016-08-17 11:04 | PN ---
Progress Note, Physician History of Present Illness: seen and examined today in nad. no overnight events. no new complaints. - Current Medication List Current Medications: Active Medications Atorvastatin Calcium (Lipitor -) 40 mg PO HS [facility] Last Admin: 08/16/16 21:16 Dose: 40 mg Chlorhexidine Gluconate (Hibiclens For Decolonization -) 1 applic TP HS [facility] Last Admin: 08/16/16 21:16 Dose: Not Given Heparin Sodium (Porcine) (Heparin -) 1,000 unit IVPUSH PRN PRN PRN Reason: Heparin Heparin Sodium (Porcine) (Heparin -) 5,000 unit IVPUSH PRN PRN PRN Reason: Heparin Last Admin: 08/17/16 09:14 Dose: 5,000 unit Hydralazine HCl (Apresoline -) 25 mg PO TID [facility] Last Admin: 08/17/16 05:26 Dose: 25 mg Heparin Sodium/Dextrose (Heparin Infusion -) 500 mls @ 20 mls/hr IVPB TITR JED ; 1,000 UNITS/HR PRN Reason: Protocol Last Admin: 08/16/16 18:32 Dose: 23 mls/hr Labetalol HCl (Normodyne -) 200 mg PO BID [facility] Last Admin: 08/17/16 09:14 Dose: 200 mg Lisinopril (Prinivil) 40 mg PO DAILY [facility] Last Admin: 08/17/16 09:13 Dose: 40 mg Mupirocin (Bactroban Ointment (For Decolonization) -) 1 applic NS BID [facility] Stop: 08/18/16 21:59 Last Admin: 08/16/16 21:16 Dose: Not Given Potassium Chloride (Kcl Oral Solution -) 40 meq PO DAILY [facility] Last Admin: 08/17/16 09:14 Dose: 40 meq Warfarin Sodium (Coumadin -) 7.5 mg PO ONCE@1800 ONE Stop: 08/17/16 18:01 - Objective Vital Signs: Vital Signs Temperature 98.4 F 08/17/16 06:00 Pulse Rate 84 08/17/16 02:00 Respiratory Rate 20 08/17/16 06:00 Blood Pressure 165/90 08/17/16 06:00 O2 Sat by Pulse Oximetry (%) 95 08/16/16 22:00 Constitutional: Yes: No Distress, Calm, Obese Eyes: Yes: Other (blindness) HENT: Yes: Atraumatic, Normocephalic Neck: Yes: Supple, Trachea Midline Cardiovascular: Yes: Pulse Irregular, S1, S2. No: Bradycardia, Tachycardia, Bruit, JVD, Gallop, Murmur, Rub, S3, S4, Varicosities Respiratory: Yes: Regular, Diminished. No: Rales, Rhonchi, Wheezes Gastrointestinal: Yes: WNL, Normal Bowel Sounds, Soft. No: Distention, Tenderness Musculoskeletal: Yes: WNL Extremities: Yes: WNL Edema: Yes Edema: LLE: Trace, RLE: Trace Peripheral Pulses WNL: Yes Peripheral Pulses: Left Doralis Pedis: 2+, Right Dorsalis Pedis: 2+ Integumentary: Yes: WNL Neurological: Yes: Pre-Existing Deficit ...Motor Strength: WNL Psychiatric: Yes: WNL, Alert, Oriented Labs: CBC, BMP 08/17/16 06:00 08/17/16 08:00 INR, PTT INR 1.42 (0.82-1.09) H 08/17/16 06:00 - ....Imaging Chest X-ray: Report Reviewed, Image Reviewed EKG: Report Reviewed, Image Reviewed Other: Report Reviewed, Image Reviewed (tele-Afib, HR controlled, PVCs) Assessment/Plan CVA -heparin gtt bridge to coumadin for goal INR 2-3 for Afib -neurology follow up Atrial fibrillation -Hr is adequately controlled -on Labetalol for HTN control, can cont this for as HR is adequately controlled currently -heparin gtt bridge to coumadin for goal INR 2-3 for Afib HTN-uncontrolled -now on Lisinopril, Labetalol, and Hydralazine po -BP goal as per neurology reccs
[2016-08-17] MEDS: MUPIROCIN 2% TOPICAL OINTMENT FOR DECOLONIZATION NS SCH ×2 (11:47→22:44)
[2016-08-17] MEDS ORDERED: WARFARIN NA 7.5 MG TABLET (FP) PO ONE (18:00)
[2016-08-17] MEDS: CHLORHEXIDINE GLUCONATE 4% CLEANSER FOR DECOLONIZATION TP SCH (22:44)
[2016-08-17] MEDS: ATORVASTATIN CA 40 MG TABLET (FP) PO SCH (22:48)
[2016-08-17] MEDS: HEPARIN INFUSION - 500 ML IVPB SCH (22:49)
[2016-08-18] MEDS: SENNOSIDES 8.6MG TABLET (FP) PO SCH ×3 (01:21→21:19)
[2016-08-18] MEDS: hydrALAZINE HCL 25 MG TABLET (FP) PO SCH ×3 (06:08→21:19)
[2016-08-18 08:05] LABS: BASOPHIL 0.7 % (0-2.0); EOSINOPHIL 7.9 % (0-4.5); MCH 29.6 pg (25.7-33.7); MEAN CELL VOLUME 87.2 fl (80-96); MEAN PLT VOLUME 10.3 fl (7.5-11.1); NEUTROPHILS 52.8 % (42.8-82.8); PLATELET COUNT 170 K/MM3 (134-434); RDW 12.7 % (11.9-15.9); WHITE BLOOD COUNT 6.8 K/mm3 (4.0-10.0)
[2016-08-18 08:18] LABS: INR 1.57 (0.82-1.09); PROTHROMBIN TIME (PATIENT) 17.4 SEC (9.98-11.88)
[2016-08-18 08:30] LABS: ALBUMIN 2.8 g/dl (3.4-5.0); BILIRUBIN,TOTAL 0.7 mg/dL (0.2-1.0); CALCIUM 7.7 mg/dL (8.5-10.1); CREATININE 1.3 mg/dL (0.7-1.3); MAGNESIUM 2.2 mg/dL (1.8-2.4); TOT PROT 6.2 g/dl (6.4-8.2)
[2016-08-18] MEDS: HEPARIN INFUSION - 500 ML IVPB SCH ×2 (09:54→21:19)
[2016-08-18] MEDS: LABETALOL HCL 200 MG TABLET (FP) PO SCH ×2 (09:56→21:18)
[2016-08-18] MEDS: LISINOPRIL 20 MG TABLET (FP) PO SCH (09:57)
[2016-08-18] MEDS: POTASSIUM CHLORIDE 40 MEQ/30 ML UNIT DOSE CUP PO SCH (09:57)
--- NOTE | 2016-08-18 10:59 | PN ---
Physical Exam: SUBJECTIVE: Patient seen and examined Patient is doing better, improving with his strength s/p TPA. OBJECTIVE: Vital Signs Temperature 98.0 F 08/18/16 06:00 Pulse Rate 89 08/18/16 06:00 Respiratory Rate 18 08/18/16 06:00 Blood Pressure 152/94 08/18/16 06:00 O2 Sat by Pulse Oximetry (%) 98 08/17/16 22:00 GENERAL: Awake, alert, and oriented,NAd HEAD: Normal with no signs of trauma. LUNGS: Breath sounds equal, clear to auscultation bilaterally. No wheezes, and no crackles. No accessory muscle use. HEART: irregular-irregular, no murmur, s1s2 positive ABDOMEN: Soft, nontender, not distended, normoactive bowel sounds, no guarding, no rebound, no masses. No hepatomegaly or splenomegaly. LOWER EXTREMITIES Normal range of motion, no edema. No clubbing or cyanosis. No cords, erythema, or tenderness. NEUROLOGICAL: Right facial droop , tongue at midline, closes both eyes normally, b/l lower limb moving, power 5/5, sensations intact, reflexes normal left upper limb power 5/5, sensation to fine touch intact, reflexes normal, right upper limb strength 4/5 , patient cannot squeeze the right hand, hand is flaccid. 5/5 at level of triceps , 4/5 bicpes . PSYCHIATRIC: Cooperative. Appropriate mood and affect. SKIN: Warm, dry, normal turgor, no rashes or lesions noted. CBCD WBC 6.8 K/mm3 (4.0-10.0) 08/18/16 07:00 RBC 4.11 M/mm3 (4.00-5.60) 08/18/16 07:00 Hgb 12.2 GM/dL (11.7-16.9) 08/18/16 07:00 Hct 35.8 % (35.4-49) 08/18/16 07:00 MCV 87.2 fl (80-96) 08/18/16 07:00 MCHC 34.0 g/dl (32.0-35.9) 08/18/16 07:00 RDW 12.7 % (11.9-15.9) 08/18/16 07:00 Plt Count 170 K/MM3 (134-434) 08/18/16 07:00 MPV 10.3 fl (7.5-11.1) 08/18/16 07:00 CMP Sodium 140 mmol/L (136-145) 08/18/16 07:00 Potassium 3.9 mmol/L (3.5-5.1) 08/18/16 07:00 Chloride 104 mmol/L (98-107) 08/18/16 07:00 Carbon Dioxide 25 mmol/L (21-32) 08/18/16 07:00 Anion Gap 11 (8-16) 08/18/16 07:00 BUN 13 mg/dL (7-18) 08/18/16 07:00 Creatinine 1.3 mg/dL (0.7-1.3) 08/18/16 07:00 Creat Clearance w eGFR 54.57 (>60) 08/18/16 07:00 Random Glucose 98 mg/dL (74-106) 08/18/16 07:00 Calcium 7.7 mg/dL (8.5-10.1) L 08/18/16 07:00 Total Bilirubin 0.7 mg/dL (0.2-1.0) 08/18/16 07:00 AST 19 U/L (15-37) D 08/18/16 07:00 ALT 16 U/L (12-78) D 08/18/16 07:00 Alkaline Phosphatase 69 U/L (45-117) 08/18/16 07:00 Total Protein 6.2 g/dl (6.4-8.2) L 08/18/16 07:00 Albumin 2.8 g/dl (3.4-5.0) L 08/18/16 07:00 CARDIAC ENZYMES Creatine Kinase 403 IU/L (39-308) H D 08/15/16 05:20 Troponin I 0.07 ng/ml (0.00-0.05) H 08/16/16 11:35 Active Medications Generic Name Dose Route Start Last Admin Trade Name Freq PRN Reason Stop Dose Admin Atorvastatin Calcium 40 mg 08/15/16 22:00 08/17/16 22:48 Lipitor - PO 40 mg HS JED Administration Heparin Sodium (Porcine) 1,000 unit 08/15/16 18:04 Heparin - IVPUSH PRN PRN Heparin Heparin Sodium (Porcine) 5,000 unit 08/15/16 18:04 08/17/16 09:14 Heparin - IVPUSH 5,000 unit PRN PRN Administration Heparin Hydralazine HCl 25 mg 08/16/16 22:00 08/18/16 06:08 Apresoline - PO 25 mg TID JED Administration Heparin Sodium/Dextrose 500 mls @ 20 mls/hr 08/15/16 18:04 08/18/16 09:54 Heparin Infusion - IVPB 26 mls/hr TITR JED Administration Protocol 1,000 UNITS/HR Labetalol HCl 200 mg 08/15/16 22:00 08/18/16 09:56 Normodyne - PO 200 mg BID JED Administration Lisinopril 40 mg 08/16/16 10:00 08/18/16 09:57 Prinivil PO 40 mg DAILY JED Administration Potassium Chloride 40 meq 08/17/16 10:00 08/18/16 09:57 Kcl Oral Solution - PO 40 meq DAILY JED Administration Senna 1 tab 08/18/16 01:00 08/18/16 09:56 Senna - PO 1 tab BID JED Administration Medication Instructions Recorded Unobtainable [Unobtainable] 08/13/16 ASSESSMENT/PLAN: 71 y/o man with h/o CVA , blindness, HTN, HLP who presented with facial droop and aphasia . he was diagnosed with a stroke and given TPA . # Acute L parietal and frontal Lobe stroke : s/p TPA with on going improvement , on Heparin gtt. with coumad in 7.5 bridge, tight BP control - cont statin . continued speech eval. Seen the patient by neurologist , recommends [facility] # New onset A fib: Rate is controlled on BB , cont Labetalol , try to avoid increasing BB due to the pauses - CHADSVASC score 6 .High risk for recurrent stroke . cont Heparin gtt. start coumadin . Coumadin is a better option compared to NOACS given risk for fall and possible need for reversal. # HTN emergency : BP cont to be elevated. goal < 140 . Cont 200 mg of labetalol BID ,will continue to monitor for now also on lisinopril 40 continue. - PRN HZN as needed # COURTNEY : likely form HTN emergency, resolved # Trop leak : possible NSTEMI due to demand ischemia . trended down. Possible stress test when stable. appreciate Card Recs . DVT px : on heparin gtt Diet : place on puree with thick liquids . cont speech eval . Visit type - Emergency Visit Emergency Visit: Yes ED Registration Date: 08/13/16 Care time: The patient presented to the Emergency Department on the above date and was hospitalized for further evaluation of their emergent condition. - New Patient This patient is new to me today: No - Critical Care Critical Care patient: No
--- NOTE | 2016-08-18 11:34 | PN ---
Progress Note, Physician History of Present Illness: seen and examined today in nad. no overnight events. c/o pain from condon. - Current Medication List Current Medications: Active Medications Atorvastatin Calcium (Lipitor -) 40 mg PO HS [facility] Last Admin: 08/17/16 22:48 Dose: 40 mg Heparin Sodium (Porcine) (Heparin -) 1,000 unit IVPUSH PRN PRN PRN Reason: Heparin Heparin Sodium (Porcine) (Heparin -) 5,000 unit IVPUSH PRN PRN PRN Reason: Heparin Last Admin: 08/17/16 09:14 Dose: 5,000 unit Hydralazine HCl (Apresoline -) 25 mg PO TID [facility] Last Admin: 08/18/16 06:08 Dose: 25 mg Heparin Sodium/Dextrose (Heparin Infusion -) 500 mls @ 20 mls/hr IVPB TITR JED ; 1,000 UNITS/HR PRN Reason: Protocol Last Admin: 08/18/16 09:54 Dose: 26 mls/hr Labetalol HCl (Normodyne -) 200 mg PO BID [facility] Last Admin: 08/18/16 09:56 Dose: 200 mg Lisinopril (Prinivil) 40 mg PO DAILY [facility] Last Admin: 08/18/16 09:57 Dose: 40 mg Potassium Chloride (Kcl Oral Solution -) 40 meq PO DAILY [facility] Last Admin: 08/18/16 09:57 Dose: 40 meq Senna (Senna -) 1 tab PO BID [facility] Last Admin: 08/18/16 09:56 Dose: 1 tab - Objective Vital Signs: Vital Signs Temperature 98.4 F 08/18/16 10:00 Pulse Rate 96 H 08/18/16 10:00 Respiratory Rate 20 08/18/16 10:00 Blood Pressure 159/85 08/18/16 10:00 O2 Sat by Pulse Oximetry (%) 98 08/17/16 22:00 Constitutional: Yes: No Distress, Calm, Obese Eyes: Yes: Other (blindness) HENT: Yes: WNL, Atraumatic, Normocephalic Neck: Yes: WNL, Supple, Trachea Midline Cardiovascular: Yes: Regular Rate and Rhythm, S1, S2. No: Bradycardia, Tachycardia, Pulse Irregular, Bruit, JVD, Gallop, Murmur, Rub, S3, S4, Varicosities Respiratory: Yes: Regular, Diminished. No: Rales, Rhonchi, Wheezes Gastrointestinal: Yes: WNL, Normal Bowel Sounds, Soft. No: Distention, Tenderness Musculoskeletal: Yes: WNL Extremities: Yes: WNL Edema: Yes Edema: LLE: Trace, RLE: Trace Peripheral Pulses WNL: Yes Peripheral Pulses: Left Doralis Pedis: 2+, Right Dorsalis Pedis: 2+ Integumentary: Yes: WNL Neurological: Yes: Alert, Oriented Psychiatric: Yes: Alert, Oriented Labs: CBC, BMP 08/18/16 07:00 08/18/16 07:00 INR, PTT INR 1.57 (0.82-1.09) H 08/18/16 07:00 - ....Imaging Chest X-ray: Report Reviewed, Image Reviewed EKG: Report Reviewed, Image Reviewed Other: Report Reviewed, Image Reviewed (tele-Afib, Hr adequately controlled, PVCs) Assessment/Plan CVA -heparin gtt bridge to coumadin for goal INR 2-3 for Afib -neurology follow up Atrial fibrillation -Hr is adequately controlled -on Labetalol for HTN control, can cont this for as HR is adequately controlled currently -heparin gtt bridge to coumadin for goal INR 2-3 for Afib HTN-improving, still above chcf goal -cont Lisinopril, Labetalol, and Hydralazine po -BP goal as per neurology reccs
--- NOTE | 2016-08-18 13:07 | EKG ---
Test Reason : Blood Pressure : / mmHG Vent. Rate : 069 BPM Atrial Rate : 340 BPM P-R Int : 000 ms QRS Dur : 096 ms QT Int : 450 ms P-R-T Axes : 000 -07 067 degrees QTc Int : 482 ms ATRIAL FIBRILLATION NONSPECIFIC T WAVE ABNORMALITY , PROBABLY DIGITALIS EFFECT POOR R WAVE PROGRESSION PROLONGED QT ABNORMAL ECG WHEN COMPARED WITH ECG OF 13-AUG-2016 14:23, NO SIGNIFICANT CHANGE WAS FOUND Confirmed by MD MARION, NEELA ([id number]) on 08/18/2016 1:06:45 PM Referred By: Overread By: NEELA SCHUTLZ MD
--- NOTE | 2016-08-18 16:35 | PN ---
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 Information was obtained by EMS. As per EMs, at baseline the patient is alert, oriented, verbal and ambulatory. Today , the patient was in his home, watching television, when his home health aide noted that the patient was nonverbal, with right facial droop. EMS was activated. 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 Patient arrived to the ED at 13:49 and code ashley was activated at 13:51. - Current Medication List Current Medications: Active Medications Atorvastatin Calcium (Lipitor -) 40 mg PO HS [facility] Last Admin: 08/17/16 22:48 Dose: 40 mg Heparin Sodium (Porcine) (Heparin -) 1,000 unit IVPUSH PRN PRN PRN Reason: Heparin Heparin Sodium (Porcine) (Heparin -) 5,000 unit IVPUSH PRN PRN PRN Reason: Heparin Last Admin: 08/17/16 09:14 Dose: 5,000 unit Hydralazine HCl (Apresoline -) 25 mg PO TID [facility] Last Admin: 08/18/16 13:23 Dose: 25 mg Heparin Sodium/Dextrose (Heparin Infusion -) 500 mls @ 20 mls/hr IVPB TITR JED ; 1,000 UNITS/HR PRN Reason: Protocol Last Admin: 08/18/16 09:54 Dose: 26 mls/hr Labetalol HCl (Normodyne -) 200 mg PO BID [facility] Last Admin: 08/18/16 09:56 Dose: 200 mg Lisinopril (Prinivil) 40 mg PO DAILY [facility] Last Admin: 08/18/16 09:57 Dose: 40 mg Potassium Chloride (Kcl Oral Solution -) 40 meq PO DAILY [facility] Last Admin: 08/18/16 09:57 Dose: 40 meq Senna (Senna -) 1 tab PO BID [facility] Last Admin: 08/18/16 09:56 Dose: 1 tab - Objective Vital Signs: Vital Signs Temperature 98.7 F 08/18/16 14:00 Pulse Rate 86 08/18/16 14:00 Respiratory Rate 20 08/18/16 14:00 Blood Pressure 118/73 08/18/16 14:00 O2 Sat by Pulse Oximetry (%) 94 L 08/18/16 10:00 Constitutional: Yes: No Distress Eyes: Yes: Conjunctiva Clear, Cataracts HENT: Yes: Atraumatic, Normocephalic Neck: Yes: Supple, Trachea Midline Cardiovascular: Yes: Regular Rate and Rhythm, S1, S2 Respiratory: Yes: Regular, CTA Bilaterally Gastrointestinal: Yes: Normal Bowel Sounds, Soft Genitourinary: Yes: WNL Breast(s): Yes: WNL Musculoskeletal: Yes: Muscle Weakness Edema: No Peripheral Pulses WNL: Yes Peripheral Pulses: Left Radial: 1+, Right Radial: 1+ Neurological: Yes: Alert, Oriented Psychiatric: Yes: Alert, Oriented Labs: CBC, BMP 08/18/16 07:00 08/18/16 07:00 INR, PTT INR 1.57 (0.82-1.09) H 08/18/16 07:00 Problem List - Problems (1) CVA (cerebral vascular accident) Code(s): I63.9 - CEREBRAL INFARCTION, UNSPECIFIED Qualifiers: CVA mechanism: embolism (2) Atrial fibrillation Code(s): I48.91 - UNSPECIFIED ATRIAL FIBRILLATION (3) 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) Code(s): I63.9 - CEREBRAL INFARCTION, UNSPECIFIED R47.1 - DYSARTHRIA AND ANARTHRIA (4) Aphasia due to stroke Code(s): I63.9 - CEREBRAL INFARCTION, UNSPECIFIED R47.01 - APHASIA Assessment/Plan The patient is a 71 year old male, with a significant past medical history of HTN, HDL, CVA (October 2015 with no deficits) and bilateral blindness, who present to the emergency department via EMS today for further evaluation of left facial droop and right arm weakness for approximately 40 minutes prior to ER arrival. Information was obtained by EMS. As per EMs, at baseline the patient is alert, oriented, verbal and ambulatory. Today , the patient was in his home, watching television, when his home health aide noted that the patient was nonverbal, with left facial droop. EMS was activated. 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 Patient arrived to the ED at 13:49 and code gabi was activated at 13:51. [employer]HS is 10p today. The dysarthria and right arm weakness improved. He is able to raise the RUE from the bed. Impression: acute ischemic stroke post ivtpa. new onset AFib. MRI brain is positive for acute ischemic stroke on DWI. Plan: - continue bridging Heparin gtt. till coumadin INR therapeutic. - keep SBP under 140mmHg - on Heparin gtt. started on anticoagulation per cardiology due to his new onset AFib. - delinquency prevention social worker consult for rehabilitation inpatient. - PT/OT/ST.Speech therapy . Swallow evaluation. - DVT prophylaxis Will follow.
[2016-08-18] MEDS ORDERED: WARFARIN NA 7.5 MG TABLET (FP) PO ONE (20:33)
[2016-08-18] MEDS: ATORVASTATIN CA 40 MG TABLET (FP) PO SCH (21:18)
[2016-08-19] MEDS ORDERED: HEPARIN INFUSION - 500 ML IVPB ONE ×2 (05:40→21:42)
[2016-08-19] MEDS: hydrALAZINE HCL 25 MG TABLET (FP) PO SCH ×3 (06:13→21:29)
[2016-08-19] MEDS: HEPARIN INFUSION - 500 ML IVPB SCH ×3 (06:14→21:47)
[2016-08-19 07:16] LABS: MCH 29.7 pg (25.7-33.7); MCHC 33.8 g/dl (32.0-35.9); MEAN PLT VOLUME 10.1 fl (7.5-11.1); PLATELET COUNT 179 K/MM3 (134-434); RDW 12.7 % (11.9-15.9); WHITE BLOOD COUNT 6.7 K/mm3 (4.0-10.0)
[2016-08-19 07:28] LABS: INR 1.91 (0.82-1.09); PROTHROMBIN TIME (PATIENT) 21.3 SEC (9.98-11.88)
--- NOTE | 2016-08-19 10:19 | PN ---
Progress Note, SUPPLY CHAIN COORDINATOR - Note Progress Note: Pt presents with moderate to severe Apraxia, with poor (+) to fair (-) impaired intelligibility. Increasing frequency in phonemic errors with multisyllabic words and sentences. Swallowing is intact. Pt is fully oriented.Pt lives with an CONSULTANT DIETITIAN x 1 year due to visual deficits. REC:Diet upgrade of soft regular and thin liquid. Rehab evaluation/Truman?
[2016-08-19] MEDS: LABETALOL HCL 200 MG TABLET (FP) PO SCH ×2 (10:25→21:29)
[2016-08-19] MEDS: POTASSIUM CHLORIDE 40 MEQ/30 ML UNIT DOSE CUP PO SCH (10:25)
[2016-08-19] MEDS: SENNOSIDES 8.6MG TABLET (FP) PO SCH ×2 (10:26→21:29)
[2016-08-19] MEDS: LISINOPRIL 20 MG TABLET (FP) PO SCH (10:26)
--- NOTE | 2016-08-19 12:06 | PN ---
Progress Note, Physician History of Present Illness: seen and examined today in nad. no overnight events. no new complaints. - Current Medication List Current Medications: Active Medications Atorvastatin Calcium (Lipitor -) 40 mg PO HS [facility] Last Admin: 08/18/16 21:18 Dose: 40 mg Heparin Sodium (Porcine) (Heparin -) 1,000 unit IVPUSH PRN PRN PRN Reason: Heparin Heparin Sodium (Porcine) (Heparin -) 5,000 unit IVPUSH PRN PRN PRN Reason: Heparin Last Admin: 08/17/16 09:14 Dose: 5,000 unit Hydralazine HCl (Apresoline -) 25 mg PO TID [facility] Last Admin: 08/19/16 06:13 Dose: 25 mg Heparin Sodium/Dextrose (Heparin Infusion -) 500 mls @ 20 mls/hr IVPB TITR JED ; 1,000 UNITS/HR PRN Reason: Protocol Last Admin: 08/19/16 08:18 Dose: 25 mls/hr Labetalol HCl (Normodyne -) 200 mg PO BID [facility] Last Admin: 08/19/16 10:25 Dose: 200 mg Lisinopril (Prinivil) 40 mg PO DAILY [facility] Last Admin: 08/19/16 10:26 Dose: 40 mg Potassium Chloride (Kcl Oral Solution -) 40 meq PO DAILY [facility] Last Admin: 08/19/16 10:25 Dose: 40 meq Senna (Senna -) 1 tab PO BID [facility] Last Admin: 08/19/16 10:26 Dose: 1 tab Warfarin Sodium (Coumadin -) 5 mg PO ONCE@1800 ONE Stop: 08/19/16 18:01 - Objective Vital Signs: Vital Signs Temperature 98.7 F 08/19/16 10:00 Pulse Rate 97 H 08/19/16 10:00 Respiratory Rate 20 08/19/16 10:00 Blood Pressure 157/97 08/19/16 10:00 O2 Sat by Pulse Oximetry (%) 95 08/19/16 09:51 Constitutional: Yes: No Distress, Calm, Obese Eyes: Yes: Other (blindness) HENT: Yes: WNL, Atraumatic, Normocephalic Neck: Yes: WNL, Supple, Trachea Midline Cardiovascular: Yes: Pulse Irregular, S1, S2. No: Bradycardia, Tachycardia, Bruit, JVD, Gallop, Murmur, Rub, S3, S4, Varicosities Respiratory: No: Rales, Rhonchi, Wheezes Gastrointestinal: Yes: WNL, Normal Bowel Sounds, Soft. No: Distention, Tenderness Musculoskeletal: Yes: WNL Extremities: Yes: WNL Edema: No Peripheral Pulses WNL: Yes Peripheral Pulses: Left Doralis Pedis: 2+, Right Dorsalis Pedis: 2+ Integumentary: Yes: WNL Neurological: Yes: Alert, Oriented ...Motor Strength: WNL Psychiatric: Yes: Alert, Oriented Labs: CBC, BMP 08/19/16 05:40 08/18/16 07:00 INR, PTT INR 1.91 (0.82-1.09) H 08/19/16 05:40 - ....Imaging Chest X-ray: Report Reviewed, Image Reviewed EKG: Report Reviewed, Image Reviewed Other: Report Reviewed, Image Reviewed (tele-Afib, Hr controlled, PVCs) Assessment/Plan CVA -heparin gtt bridge to coumadin for goal INR 2-3 for Afib -INR 1.91 today will likely be above 2 tomorrow Atrial fibrillation -Hr is adequately controlled -on Labetalol for HTN control, can cont this for as HR is adequately controlled currently -heparin gtt bridge to coumadin for goal INR 2-3 for Afib HTN-improving, still above long term goal -can increase Labetalol to improve HTN control -cont Lisinopril 40mg daily -if needed beyond uptitration of labetalol can also uptitrate Hydralazine or add /change to amlodipine or nifedipine
--- NOTE | 2016-08-19 12:39 | PN ---
Physical Exam: SUBJECTIVE: Patient seen and examined, patient was lying comfartably in bed, speech has improved since before OBJECTIVE: Vital Signs Period Temp Pulse Resp BP Sys/Krishna Pulse Ox Last 24 Hr 96.8 F-98.7 F 80-97 18-20 118-159/73-106 95-98 GENERAL: Awake, alert, and oriented, HEAD: Normal with no signs of trauma. LUNGS: Breath sounds equal, clear to auscultation bilaterally. No wheezes, and no crackles. No accessory muscle use. HEART: irregular, no murmur, s1s2 normal ABDOMEN: Soft, nontender, not distended, normoactive bowel sounds, no guarding, no rebound, no masses. No hepatomegaly or splenomegaly. LOWER EXTREMITIES Normal range of motion, no edema. No clubbing or cyanosis. No cords, erythema, or tenderness. NEUROLOGICAL: facial paralysis on right side improving , tongue at midline, smile deviation on left side improved since yesterday , closes both eyes normally, sensation to touch b/l on face present . b/l lower limb moving, power 5/5, sensations intact, reflexes normal left upper limb power 5/5, sensation to fine touch intact, reflexes normal right upper limb strength 0/5 at level of R hand and wrist. 5/5 at level of triceps , 5/5 bicpes , shoulder abduction better than yesterday, sensation to fine touch absent on dorsal aspect of his hand PSYCHIATRIC: Cooperative. Appropriate mood and affect. SKIN: Warm, dry, normal turgor, no rashes or lesions noted. Laboratory Results - last 24 hr 08/19/16 08/19/16 08/19/16 05:40 05:40 05:40 WBC 6.7 RBC 3.99 L Hgb 11.9 Hct 35.1 L MCV 88.0 MCHC 33.8 RDW 12.7 Plt Count 179 MPV 10.1 INR 1.91 H PTT (Actin FS) 83.7 H D Active Medications Generic Name Dose Route Start Last Admin Trade Name Freq PRN Reason Stop Dose Admin Atorvastatin Calcium 40 mg 08/15/16 22:00 08/18/16 21:18 Lipitor - PO 40 mg HS JED Administration Heparin Sodium (Porcine) 1,000 unit 08/15/16 18:04 Heparin - IVPUSH PRN PRN Heparin Heparin Sodium (Porcine) 5,000 unit 08/15/16 18:04 08/17/16 09:14 Heparin - IVPUSH 5,000 unit PRN PRN Administration Heparin Hydralazine HCl 25 mg 08/16/16 22:00 08/19/16 06:13 Apresoline - PO 25 mg TID JED Administration Heparin Sodium/Dextrose 500 mls @ 20 mls/hr 08/15/16 18:04 08/19/16 08:18 Heparin Infusion - IVPB 25 mls/hr TITR JED Administration Protocol 1,000 UNITS/HR Labetalol HCl 200 mg 08/15/16 22:00 08/19/16 10:25 Normodyne - PO 200 mg BID JED Administration Lisinopril 40 mg 08/16/16 10:00 08/19/16 10:26 Prinivil PO 40 mg DAILY JED Administration Potassium Chloride 40 meq 08/17/16 10:00 08/19/16 10:25 Kcl Oral Solution - PO 40 meq DAILY JED Administration Senna 1 tab 08/18/16 01:00 08/19/16 10:26 Senna - PO 1 tab BID JED Administration Warfarin Sodium 5 mg 08/19/16 18:00 Coumadin - PO 08/19/16 18:01 ONCE@1800 ONE Microbiology 08/13/16 22:45 Blood - Peripheral Venous Blood Culture - Final NO GROWTH AFTER 5 DAYS INCUBATION 08/13/16 22:15 Blood - Peripheral Venous Blood Culture - Final NO GROWTH AFTER 5 DAYS INCUBATION 08/13/16 15:15 Urine - Urine - Catheterized Urine Culture - Final NO GROWTH OBTAINED 08/13/16 22:45 Nasopharyngeal Swab Respiratory Virus Panel - Preliminary 08/13/16 22:45 Nasopharyngeal Swab Influenza Types A,B Antigen (YESI) - Final 08/13/16 22:45 Nasopharyngeal Swab - Final ASSESSMENT/PLAN: The patient is a 71 year old male, with a significant past medical history of HTN, HDL, CVA (October 2015 with no deficits) and bilateral blindness, who present to the emergency department via EMS today for further evaluation of left facial droop and right arm weakness and was diagnosed to have cva, a fib and htn emergency. Patient recieved Tpa in ED CVA- ischemic stroke L parietal and frontal Lobe stroke recieved tpa in ed, symptoms improving keep SBP < 140 on labetalol 200mg po bid, on lisinopril 40mg daily , hydralazine 25 tid, if JOSE remain high will increase hydralazine neurological assessment afib rate control with labetalol 200mg bid anticaogulation with heparin and coumadin, today inr 1.9, will give coumadin 5mg cardiology consult appreciated HTN emergency on po labetalol 200mg bid, on lisinopril 40 mg, hydralazien 25mg tid goal sbp<140, if bp still high will increase dose of hydralazine evelin, could be from HTN emergency improving cr 1.6--->.1.3 hld atorvastatin 40mg daily elevated trop i could be due to demand ischemia trending down trop i 0.o7 cardilogy consult appreciated fluid ;orally allowed electrolyte; in am nutrition soft diet and thin liquid dvt pro on heparin drip, gi pro : not required dispo: patient in tele, Visit type - Emergency Visit Emergency Visit: Yes ED Registration Date: 08/13/16 Care time: The patient presented to the Emergency Department on the above date and was hospitalized for further evaluation of their emergent condition. - New Patient This patient is new to me today: No - Critical Care Critical Care patient: No
--- NOTE | 2016-08-19 16:40 | PN ---
Teaching Attending Note Name of Resident: Danish Kaufman ATTENDING PHYSICIAN STATEMENT I saw and evaluated the patient. I reviewed the resident's note and discussed the case with the resident. I agree with the resident's findings and plan as documented. SUBJECTIVE: no fever or chills, no abd pain , no SOB . feels better OBJECTIVE: NAD , slurred speech , but improved . Oriented to location and year. HEENT: R lower facial droop, MMM, corneal opacities CV: irreg irreg. Lungs ; CTAB Ext : no edema over legs Neuro : R lower facial droop. tongue at mid line . Nl facial sensation . EOMI , can't evaluate pupils due to corneal opacities, tongue at mid line . Strength 5/5 in LUE ,LLE , and RLE prox and distally . Strength 0/5 at level of R hand and wrist. 5/5 at level of triceps ,5/5 bicpes , 5/5 at shoulder abduction . nl sensation to light touch over body except L palm and dorsum . reflexes : 1+ knee jerk b/l . 1+ at R biceps . 2+ L biceps ASSESSMENT AND PLAN: 71 y/o man with h/o CVA , blindness, HTN, HLP who presented with facial droop and aphasia . he was diagnosed with a stroke and given TPA . 1- Acute L parietal and frontal Lobe stroke : s/p TPA with partial improvement in symptoms neuro exam cont to improve - cont heparin gtt. INR 1.9 . give 5 mg of coumadin today. - stop heparin gtt if INR > 2 tomorrow - BP control - cont statin . - continued speech eval . upgrade diet 2- New onset A fib: - cont Labetalol - cont bridging to coumadin as above 3- HTN emergency : BP improved -cont labetalol, lisinopril and HZN. 4- COURTNEY : likely form HTN emergency, resolved 5- Trop leak : possible NSTEMI due to demand ischemia . trended down. Possible stress test when stable or as outpt . appreciate Card Recs . 6- DVT px : on heparin gtt Dispo : pending therapeutic INR, and reaching the family . will need rehab
[2016-08-19] MEDS ORDERED: WARFARIN NA 5 MG TABLET (UD) PO ONE (18:00)
[2016-08-19] MEDS: ATORVASTATIN CA 40 MG TABLET (FP) PO SCH (21:29)
[2016-08-20] MEDS: hydrALAZINE HCL 25 MG TABLET (FP) PO SCH (05:48)
[2016-08-20] MEDS ORDERED: hydrALAZINE HCL 25 MG TABLET (FP) PO SCH (07:41)
[2016-08-20 08:21] LABS: MCH 28.8 pg (25.7-33.7); MCHC 32.9 g/dl (32.0-35.9); MEAN CELL VOLUME 87.5 fl (80-96); MEAN PLT VOLUME 9.8 fl (7.5-11.1); PLATELET COUNT 193 K/MM3 (134-434); RDW 12.4 % (11.9-15.9); WHITE BLOOD COUNT 6.6 K/mm3 (4.0-10.0)
[2016-08-20 08:41] LABS: INR 2.59 (0.82-1.09)
[2016-08-20] MEDS: POTASSIUM CHLORIDE 40 MEQ/30 ML UNIT DOSE CUP PO SCH (09:27)
[2016-08-20] MEDS: LABETALOL HCL 200 MG TABLET (FP) PO SCH ×2 (09:27→21:35)
[2016-08-20] MEDS: SENNOSIDES 8.6MG TABLET (FP) PO SCH ×2 (09:27→21:35)
[2016-08-20] MEDS: LISINOPRIL 20 MG TABLET (FP) PO SCH (09:27)
--- NOTE | 2016-08-20 11:48 | PN ---
Progress Note, Physician Chief Complaint: Pt ambulates at moderate pace with help of physical therapist supporting him on both sides; no chest pain or dyspnea. History of Present Illness: The patient is a 71 year old black male, with a significant past medical history of HTN, HDL, CVA (October 2015 with no deficits) and bilateral blindness, who present to the emergency department via EMS today for further evaluation of left facial droop and right arm weakness for approximately 40 minutes prior to ER arrival. Information was obtained by EMS. As per EMS, at baseline the patient is alert, oriented, verbal and ambulatory. Today , the patient was in his home, watching television, when his home health aide noted that the patient was nonverbal, with left facial droop. EMS was activated. Patient was noted to be in atrial fibrillation (however no prior hx; not on anticoagulants). Patient arrived to the ED at 13:49 (not registered until 13:58) and code ashley was activated at 13:51; pt was given tPA. No vomiting, headache No major surgeries No intestinal bleeding - Current Medication List Current Medications: Active Medications Atorvastatin Calcium (Lipitor -) 40 mg PO HS [facility] Last Admin: 08/19/16 21:29 Dose: 40 mg Hydralazine HCl (Apresoline -) 50 mg PO TID [facility] Labetalol HCl (Normodyne -) 200 mg PO BID [facility] Last Admin: 08/20/16 09:27 Dose: 200 mg Lisinopril (Prinivil) 40 mg PO DAILY [facility] Last Admin: 08/20/16 09:27 Dose: 40 mg Potassium Chloride (Kcl Oral Solution -) 40 meq PO DAILY [facility] Last Admin: 08/20/16 09:27 Dose: 40 meq Senna (Senna -) 1 tab PO BID [facility] Last Admin: 08/20/16 09:27 Dose: 1 tab - Objective Vital Signs: Vital Signs Temperature 98.2 F 08/20/16 09:25 Pulse Rate 81 08/20/16 09:25 Respiratory Rate 18 08/20/16 09:25 Blood Pressure 194/96 08/20/16 09:25 O2 Sat by Pulse Oximetry (%) 95 08/19/16 21:00 Constitutional: Yes: Calm Eyes: Yes: Other (bilateral blindness) HENT: Yes: WNL Neck: Yes: WNL Cardiovascular: Yes: Pulse Irregular Respiratory: Yes: Regular Gastrointestinal: Yes: Soft ...Rectal Exam: Yes: Deferred Genitourinary: No: Anuria Breast(s): Yes: WNL Musculoskeletal: Yes: Muscle Weakness Edema: No Peripheral Pulses WNL: Yes Integumentary: Yes: WNL Neurological: Yes: Alert, Oriented Psychiatric: Yes: Other Labs: CBC, BMP 08/20/16 08:00 08/18/16 07:00 INR, PTT INR 2.59 (0.82-1.09) H D 08/20/16 08:00 Abnormal Lab Results 08/20/16 08/20/16 08:00 08:00 INR 2.59 H D PTT (Actin FS) 66.4 H Problem List - Problems (1) CVA (cerebral vascular accident) Assessment/Plan: MRI: acute left frontal and parietal cortical infarcts; old right cerebellar infarcts. F/u with neurologist. Continue physical rehabilitation. Code(s): I63.9 - CEREBRAL INFARCTION, UNSPECIFIED (2) HTN (hypertension) Assessment/Plan: BP elevated; hydralazine increased to 100 mg bid (and may increase to maximum of 100 mg q8h). On labetalol IV; keep BP within parameters set by neurologist. May use ACEI or ARB, but follow renal parameters and electrolytes carefully. ECHO: normal LVEF; moderate LA and TR (RVSP 50-60 mmnHg); severe MR. TNI maximum 0.08. TSH WNL. Code(s): I10 - ESSENTIAL (PRIMARY) HYPERTENSION (4) Hyperlipidemia Assessment/Plan: LDL cholesterol 143; triglycerides 163 mg/dL. Started high-dose atorvastatin (40 mg daily); keep LDL cholesterol < 70 mg/dL. Code(s): E78.5 - HYPERLIPIDEMIA, UNSPECIFIED (5) Atrial fibrillation Code(s): I48.91 - UNSPECIFIED ATRIAL FIBRILLATION (6) Hypokalemia Code(s): E87.6 - HYPOKALEMIA
[2016-08-20] MEDS ORDERED: hydrALAZINE HCL 50 MG TABLET (FP) PO ONE (11:53)
--- NOTE | 2016-08-20 13:29 | PN ---
Progress Note, Physician History of Present Illness: Pt excited about the improvement in the LUE weakness post stroke. He was able to communicate without difficulty and had no complaints. - Current Medication List Current Medications: Active Medications Atorvastatin Calcium (Lipitor -) 40 mg PO HS [facility] Last Admin: 08/19/16 21:29 Dose: 40 mg Hydralazine HCl (Apresoline -) 100 mg PO BID [facility] Labetalol HCl (Normodyne -) 200 mg PO BID [facility] Last Admin: 08/20/16 09:27 Dose: 200 mg Lisinopril (Prinivil) 40 mg PO DAILY [facility] Last Admin: 08/20/16 09:27 Dose: 40 mg Potassium Chloride (Kcl Oral Solution -) 40 meq PO DAILY [facility] Last Admin: 08/20/16 09:27 Dose: 40 meq Senna (Senna -) 1 tab PO BID [facility] Last Admin: 08/20/16 09:27 Dose: 1 tab - Objective Vital Signs: Vital Signs Temperature 98.2 F 08/20/16 09:25 Pulse Rate 81 08/20/16 09:25 Respiratory Rate 18 08/20/16 09:25 Blood Pressure 194/96 08/20/16 09:25 O2 Sat by Pulse Oximetry (%) 98 08/20/16 09:00 Constitutional: Yes: Well Nourished, No Distress, Calm (pt blind with right lateral gaze perference when he is resting, while talking with examiner symmetrical eye movements resting at mid position are noted.) HENT: Yes: Atraumatic, Normocephalic Neck: Yes: Supple Cardiovascular: Yes: Pulse Irregular Respiratory: Yes: Regular Gastrointestinal: Yes: Soft Musculoskeletal: Yes: Back Pain Peripheral Pulses WNL: Yes (normal) Neurological: Yes: Alert, Oriented, Cran Nerves II-XII Intact, Facial Droop ( RUE weakness greater distally with 2/4 and prox 4-/4 post infarct treated with TPA.), Weakness. No: Aphasia, Dysarthria, Loss of Sensation, Numbness, Paresthesia, Seizure, Tremors Labs: CBC, BMP 08/20/16 08:00 08/18/16 07:00 INR, PTT INR 2.59 (0.82-1.09) H D 08/20/16 08:00 Assessment/Plan Post stroke treated with TPA, good recovery with improving UE weakness Treatment of AFiB and stroke prevention due to cardiac etiology managed by IM/ Cardiology Stroke complication prevention in place with DVT and aspiration precautions in place Management of stroke risk factors with hyperlipidemia, hyperglyemia and hypertension managed by IM team P: Suggest rehab consultation
--- NOTE | 2016-08-20 14:30 | PN ---
Progress Note, TEST LEAD - Note Progress Note: Apraxia persists, with benefit of cues to speak slowly, one word at a time. Doing well with diet upgrade. Good prognosis for continued improvement. Excellent rehab candidate. Selected Entries 08/19/16 08/19/16 08/19/16 02:00 06:00 10:00 Breakfast Lunch Supper Temperature 98.5 F 98.5 F 98.7 F 08/19/16 08/19/16 08/19/16 14:00 16:00 18:00 Breakfast 100% 100% Lunch 75% 75% Supper Temperature 98.4 F 98.4 F 08/19/16 08/19/16 08/19/16 18:46 21:56 22:00 Breakfast Lunch Supper 50% Temperature 98.1 F 98.0 F 08/20/16 08/20/16 08/20/16 02:00 06:00 09:25 Breakfast Lunch Supper Temperature 98.6 F 98.2 F 98.2 F
--- NOTE | 2016-08-20 15:57 | PN ---
Teaching Attending Note Name of Resident: Paz Kaufman ATTENDING PHYSICIAN STATEMENT I saw and evaluated the patient. I reviewed the resident's note and discussed the case with the resident. I agree with the resident's findings and plan as documented. SUBJECTIVE: no fever or chills, no CP . feels better OBJECTIVE: NAD , slurred speech , but improved . Oriented to location and year. HEENT: R lower facial droop, MMM, corneal opacities CV: irreg irreg. Lungs ; CTAB Ext : no edema over legs Neuro : R lower facial droop. tongue at mid line . Nl facial sensation . EOMI , can't evaluate pupils due to corneal opacities, tongue at mid line . Strength 5/5 in LUE ,LLE , and RLE prox and distally . Strength 0/5 at level of R hand and wrist. 5/5 at level of triceps ,5/5 bicpes , 5/5 at shoulder abduction . nl sensation to light touch over body except L dorsum . reflexes : 1+ knee jerk b/l . 1+ at R biceps . 2+ L biceps ASSESSMENT AND PLAN: 71 y/o man with h/o CVA , blindness, HTN, HLP who presented with facial droop and aphasia . he was diagnosed with a stroke and given TPA . 1- Acute L parietal and frontal Lobe stroke : s/p TPA with partial improvement in symptoms neuro exam cont to improve - cont AC - cont statin . 2- New onset A fib: - cont Labetalol -dc heparin gtt and cont coumadin . will give 5 mg daily 3- HTN emergency : BP improved -cont labetalol, lisinopril and HZN. 4- COURTNEY : likely form HTN emergency, resolved 5- Trop leak : possible NSTEMI due to demand ischemia . trended down. Possible stress test when stable or as outpt . appreciate Card Recs . dispo : medically ready for dc . d/w SW. if he has a bed today, can be dc
--- NOTE | 2016-08-20 16:12 | DS ---
Addendum entered and electronically signed by Danish Kaufman RES 08/21/16 14:47 : follo new discharge summary, patient was not discharged yesterday as he didnt get placement in rehab Addendum entered and electronically signed by Danish Kaufman RES 08/21/16 09:27 : discussed with Dr Fields patient can tolerate 3 hour of physical therapy Original Note: Physical Exam: SUBJECTIVE: Patient seen and examined OBJECTIVE: Vital Signs Period Temp Pulse Resp BP Sys/Krishna Pulse Ox Last 24 Hr 98.0 F-99.0 F 81-93 16-20 124-194/72-96 95-98 PHYSICAL EXAM GENERAL: Awake, alert, and oriented, HEAD: Normal with no signs of trauma. LUNGS: Breath sounds equal, clear to auscultation bilaterally. No wheezes, and no crackles. No accessory muscle use. HEART: irregular, no murmur, s1s2 normal ABDOMEN: Soft, nontender, not distended, normoactive bowel sounds, no guarding, no rebound, no masses. No hepatomegaly or splenomegaly. LOWER EXTREMITIES Normal range of motion, no edema. No clubbing or cyanosis. No cords, erythema, or tenderness. NEUROLOGICAL: facial paralysis on right side improving , tongue at midline, smile deviation on left side improved since yesterday , closes both eyes normally, sensation to touch b/l on face present . b/l lower limb moving, power 5/5, sensations intact, reflexes normal left upper limb power 5/5, sensation to fine touch intact, reflexes normal right upper limb strength 0/5 at level of R hand and wrist. 5/5 at level of triceps , 5/5 bicpes , shoulder abduction better than yesterday, sensation to fine touch absent on dorsal aspect of his hand PSYCHIATRIC: Cooperative. Appropriate mood and affect. SKIN: Warm, dry, normal turgor, no rashes or lesions noted. LABS Laboratory Results - last 24 hr 08/20/16 08/20/16 08/20/16 08:00 08:00 08:00 WBC 6.6 RBC 4.09 Hgb 11.8 Hct 35.8 MCV 87.5 MCHC 32.9 RDW 12.4 Plt Count 193 MPV 9.8 INR 2.59 H D PTT (Actin FS) 66.4 H CBCD WBC 6.6 K/mm3 (4.0-10.0) 08/20/16 08:00 RBC 4.09 M/mm3 (4.00-5.60) 08/20/16 08:00 Hgb 11.8 GM/dL (11.7-16.9) 08/20/16 08:00 Hct 35.8 % (35.4-49) 08/20/16 08:00 MCV 87.5 fl (80-96) 08/20/16 08:00 MCHC 32.9 g/dl (32.0-35.9) 08/20/16 08:00 RDW 12.4 % (11.9-15.9) 08/20/16 08:00 Plt Count 193 K/MM3 (134-434) 08/20/16 08:00 MPV 9.8 fl (7.5-11.1) 08/20/16 08:00 CMP Sodium 140 mmol/L (136-145) 08/18/16 07:00 Potassium 3.9 mmol/L (3.5-5.1) 08/18/16 07:00 Chloride 104 mmol/L (98-107) 08/18/16 07:00 Carbon Dioxide 25 mmol/L (21-32) 08/18/16 07:00 Anion Gap 11 (8-16) 08/18/16 07:00 BUN 13 mg/dL (7-18) 08/18/16 07:00 Creatinine 1.3 mg/dL (0.7-1.3) 08/18/16 07:00 Creat Clearance w eGFR 54.57 (>60) 08/18/16 07:00 Random Glucose 98 mg/dL (74-106) 08/18/16 07:00 Calcium 7.7 mg/dL (8.5-10.1) L 08/18/16 07:00 Total Bilirubin 0.7 mg/dL (0.2-1.0) 08/18/16 07:00 AST 19 U/L (15-37) D 08/18/16 07:00 ALT 16 U/L (12-78) D 08/18/16 07:00 Alkaline Phosphatase 69 U/L (45-117) 08/18/16 07:00 Total Protein 6.2 g/dl (6.4-8.2) L 08/18/16 07:00 Albumin 2.8 g/dl (3.4-5.0) L 08/18/16 07:00 CARDIAC ENZYMES Creatine Kinase 403 IU/L (39-308) H D 08/15/16 05:20 Troponin I 0.07 ng/ml (0.00-0.05) H 08/16/16 11:35 Microbiology 08/13/16 22:45 Nasopharyngeal Swab Respiratory Virus Panel - Final 08/13/16 22:45 Blood - Peripheral Venous Blood Culture - Final NO GROWTH AFTER 5 DAYS INCUBATION 08/13/16 22:15 Blood - Peripheral Venous Blood Culture - Final NO GROWTH AFTER 5 DAYS INCUBATION 08/13/16 15:15 Urine - Urine - Catheterized Urine Culture - Final NO GROWTH OBTAINED 08/13/16 22:45 Nasopharyngeal Swab Influenza Types A,B Antigen (YESI) - Final 08/13/16 22:45 Nasopharyngeal Swab - Final [id number] MRI/BRAIN MRI W/O CONTRAST- IMPRESSION: Acute left frontal and left parietal cortical infarcts are seen. Chronic right cerebral and bilateral cerebellar infarcts are noted. Reported By: Eran Mathews MD 08/14/16 2005 * Carotid doppler:. IMPRESSION: Minimal atherosclerotic disease with no evidence of hemodynamically significant stenoses. Reported By: Vitor Patterson MD 08/15/16 1058 * Renal ultrasound: IMPRESSION: Unremarkable bilateral renal ultrasound. Reported By: Emily Gonzalez MD 08/15/16 1038 HOSPITAL COURSE: The patient is a 71 year old male, with a significant past medical history of HTN, HDL, CVA (October 2015 with no deficits) and bilateral blindness, who present to the emergency department via EMS today for further evaluation of left facial droop and right arm weakness for approximately 40 minutes prior to ER arrival. Information was obtained by EMS. As per EMS, at baseline the patient is alert, oriented, verbal and ambulatory. Today , the patient was in his home, watching television, when his home health aide noted that the patient was nonverbal, with left facial droop. EMS was activated. 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 examination and investigations were done and patient was found to have ischemic stroke, new onset atrial fibrilation, HTN emergency, evelin, hyperlipidemia, elevated trop i. For acute ischemic stroke neurologist dr alfaro was consulted and TPA was given. Post TPA patient was shifetd to ICU. Slowly symptoms recovered, patient sensation on right side of face recovered, voice improved, smile improved and deviation decreased. When patient came to hospital he was unable to speak. Power in right upper limb improved except patient unable to move right hand. when he came to hospital he was unable to use right uppe limb. For atrial fibrillation patient was started on heparin drip and later on coumadin. heparin drip stopped when INR came between 2-3, heart rate was controled with labetalol . For HTN emergency initially patient was started on labetalol drip and later switched to 200mg po bid. Patient was also started on hydralazine 50 mg 50 mg tid and lsinopril 40mg daily. patient goal is to keep sbp below 140. For evelin it could be due to HTN and prerenal it recovered after gentlre hydration. For hyperlipidemia patient was stated on atorvastatin 40mg. Now patient is accepting orally. Patient is stable and is discharged to rehab Advice Follow up with neurologist Dr eliu roldan Follow up with PCP Dr Uribe Follow up with vegetable packer Tim you might need a stress test, which could be done in outpatient Maintain INR between 2-3 Get INr checked on 08/22/16 and then get it check frequently Monitor your blood pressure Eat soft diet, low fat take fall precautions Take aspiration precautions If develop nausea, vomiting, chest pain, sob , weakness in any part of body contact doctor or come to hospital Date of Admission:08/13/16 Date of Discharge: 08/20/16 Minutes to complete discharge: 45 Discharge Summary Reason For Visit: CVA Current Active Problems Atrial fibrillation (Acute) CVA (cerebral vascular accident) (Acute) 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) (Acute) HTN (hypertension) (Acute) Hypokalemia (Acute) Hyperlipidemia (Chronic) Condition: Improved - Instructions Diet, Activity, Other Instructions: Follow up with neurologist Dr eliu roldan Follow up with PCP Dr Uribe Follow up with vegetable packer Tim you might need a stress test, which could be done in outpatient Maintain INR between 2-3 Get INr checked on 08/22/16 and then get it check frequently Monitor your blood pressure Eat soft diet, low fat take fall precautions Take aspiration precautions If develop nausea, vomiting, chest pain, sob , weakness in any part of body contact doctor or come to hospital Referrals: Charlotte Alfaro MD [Staff Physician] - 1 Week Nehemias Uribe MD [Staff Physician] - 1 Week Yuri Dumont MD [Staff Physician] - 1 Week Disposition: LONG-TERM FACILITY - Home Medications Comprehensive Discharge Medication List: Ambulatory Orders Atorvastatin Ca [Lipitor] 40 mg PO HS tablet 08/20/16 Hydralazine HCl [Apresoline -] 100 mg PO BID tablet 08/20/16 Labetalol HCl [Normodyne -] 200 mg PO BID tablet 08/20/16 Lisinopril [Prinivil] 40 mg PO DAILY tablet 08/20/16 Sennosides [Senna -] 1 tab PO BID tablet 08/20/16 Warfarin Na [Coumadin] 5 mg PO DAILY@1800 #30 tablet 08/20/16 This patient is new to me today: No Emergency Visit: Yes ED Registration Date: 08/13/16 Care time: The patient presented to the Emergency Department on the above date and was hospitalized for further evaluation of their emergent condition. Critical Care patient: No - Discharge Referral Referred to [facility] No
[2016-08-20] MEDS: ATORVASTATIN CA 40 MG TABLET (FP) PO SCH (21:35)
[2016-08-20] MEDS: hydrALAZINE HCL 50 MG TABLET (FP) PO SCH (21:35)
[2016-08-21 08:18] LABS: MCHC 32.9 g/dl (32.0-35.9); MEAN CELL VOLUME 88.3 fl (80-96); MEAN PLT VOLUME 10.3 fl (7.5-11.1); PLATELET COUNT 204 K/MM3 (134-434); RDW 12.4 % (11.9-15.9); WHITE BLOOD COUNT 6.6 K/mm3 (4.0-10.0)
[2016-08-21] MEDS: SENNOSIDES 8.6MG TABLET (FP) PO SCH (09:02)
[2016-08-21] MEDS: LISINOPRIL 20 MG TABLET (FP) PO SCH (09:02)
[2016-08-21] MEDS: hydrALAZINE HCL 50 MG TABLET (FP) PO SCH (09:02)
[2016-08-21] MEDS: LABETALOL HCL 200 MG TABLET (FP) PO SCH (09:02)
[2016-08-21] MEDS: POTASSIUM CHLORIDE 40 MEQ/30 ML UNIT DOSE CUP PO SCH (09:03)
--- NOTE | 2016-08-21 09:39 | PN ---
Physical Exam: SUBJECTIVE: Patient seen and examined, patient feels better OBJECTIVE: Vital Signs Period Temp Pulse Resp BP Sys/Krishna Pulse Ox Last 24 Hr 98.0 F-99.0 F 83-90 16-18 141-176/74-96 98 GENERAL: Awake, alert, and oriented, HEAD: Normal with no signs of trauma. LUNGS: Breath sounds equal, clear to auscultation bilaterally. No wheezes, and no crackles. No accessory muscle use. HEART: irregular, no murmur, s1s2 normal ABDOMEN: Soft, nontender, not distended, normoactive bowel sounds, no guarding, no rebound, no masses. No hepatomegaly or splenomegaly. LOWER EXTREMITIES Normal range of motion, no edema. No clubbing or cyanosis. No cords, erythema, or tenderness. NEUROLOGICAL: facial paralysis on right side improving , tongue at midline, smile deviation on left side improved since yesterday , closes both eyes normally, sensation to touch b/l on face present . b/l lower limb moving, power 5/5, sensations intact, reflexes normal left upper limb power 5/5, sensation to fine touch intact, reflexes normal right upper limb strength 0/5 at level of R hand and wrist. 5/5 at level of triceps , 5/5 bicpes , shoulder abduction better than yesterday, sensation to fine touch absent on dorsal aspect of his hand PSYCHIATRIC: Cooperative. Appropriate mood and affect. SKIN: Warm, dry, normal turgor, no rashes or lesions noted. Laboratory Results - last 24 hr 08/21/16 08/21/16 06:00 06:00 WBC 6.6 RBC 4.11 Hgb 11.9 Hct 36.3 MCV 88.3 MCHC 32.9 RDW 12.4 Plt Count 204 MPV 10.3 PTT (Actin FS) 36.0 H D Active Medications Generic Name Dose Route Start Last Admin Trade Name Freq PRN Reason Stop Dose Admin Atorvastatin Calcium 40 mg 08/15/16 22:00 08/20/16 21:35 Lipitor - PO 40 mg HS JED Administration Hydralazine HCl 100 mg 08/20/16 22:00 08/21/16 09:02 Apresoline - PO 100 mg BID JED Administration Labetalol HCl 200 mg 08/15/16 22:00 08/21/16 09:02 Normodyne - PO 200 mg BID JED Administration Lisinopril 40 mg 08/16/16 10:00 08/21/16 09:02 Prinivil PO 40 mg DAILY J[facility] Administration Potassium Chloride 40 meq 08/17/16 10:00 08/21/16 09:03 Kcl Oral Solution - PO 40 meq DAILY J[facility] Administration Senna 1 tab 08/18/16 01:00 08/21/16 09:02 Senna - PO 1 tab BID JED Administration ASSESSMENT/PLAN: The patient is a 71 year old male, with a significant past medical history of HTN, HDL, CVA (October 2015 with no deficits) and bilateral blindness, who present to the emergency department via EMS today for further evaluation of left facial droop and right arm weakness and was diagnosed to have cva, a fib and htn emergency. Patient recieved Tpa in ED CVA- ischemic stroke L parietal and frontal Lobe stroke recieved tpa in ed, symptoms improving keep SBP < 140 on labetalol 200mg po bid, on lisinopril 40mg daily , hydralazine 50 tid, patient discharged to rehab afib rate control with labetalol 200mg bid on coumadin 5 mg daily maintain inr between 2-3 HTN emergency on po labetalol 200mg bid, on lisinopril 40 mg, hydralazien 25mg tid goal sbp<140, if bp still high will increase dose of hydralazine evelin, could be from HTN emergency improving hld atorvastatin 40mg daily fluid ;orally allowed nutrition soft diet and thin liquid dvt pro on coumadin 5mg daily gi pro : not required dispo: patient discharged to rehab Visit type - Emergency Visit Emergency Visit: Yes ED Registration Date: 08/13/16 Care time: The patient presented to the Emergency Department on the above date and was hospitalized for further evaluation of their emergent condition. - New Patient This patient is new to me today: No - Critical Care Critical Care patient: No
--- NOTE | 2016-08-21 10:30 | PN ---
Progress Note, PROTOTYPER - Note Progress Note: OOB in chair. Language/Speech production continues to improve. Occasional paraphasic errors noted today. Repetition accurate now on simple level with word omission errors on low probability sentences and inconsistent phonemic errors on multisyllabic words. Right facial/right tongue deviation persists. o x 3. Highly motivated.Pt tolerating diet upgrade well. Selected Entries 08/20/16 08/20/16 08/20/16 02:00 06:00 09:25 Breakfast Diet Tolerated Lunch Supper Temperature 98.6 F 98.2 F 98.2 F 08/20/16 08/20/16 08/20/16 14:03 18:27 22:00 Breakfast 100% Diet Tolerated Well Well Lunch 75% Supper 75% Temperature 99.0 F 98.1 F 98.4 F 08/21/16 08/21/16 05:48 10:00 Breakfast Diet Tolerated Lunch Supper Temperature 98.0 F 98.2 F Laboratory Tests 08/20/16 08/21/16 08:00 06:00 WBC 6.6 6.6 Excellent rehabilitation candidate.
--- NOTE | 2016-08-21 10:53 | PN ---
Progress Note, Physician History of Present Illness: The patient is a 71 year old black male, with a significant past medical history of HTN, HDL, CVA (October 2015 with no deficits) and bilateral blindness, who present to the emergency department via EMS today for further evaluation of left facial droop and right arm weakness for approximately 40 minutes prior to ER arrival. Information was obtained by EMS. As per EMS, at baseline the patient is alert, oriented, verbal and ambulatory. Today , the patient was in his home, watching television, when his home health aide noted that the patient was nonverbal, with left facial droop. EMS was activated. Patient was noted to be in atrial fibrillation (however no prior hx; not on anticoagulants). Patient arrived to the ED at 13:49 (not registered until 13:58) and code ashley was activated at 13:51; pt was given tPA. - Current Medication List Current Medications: Active Medications Atorvastatin Calcium (Lipitor -) 40 mg PO HS [facility] Last Admin: 08/20/16 21:35 Dose: 40 mg Hydralazine HCl (Apresoline -) 100 mg PO BID [facility] Last Admin: 08/21/16 09:02 Dose: 100 mg Labetalol HCl (Normodyne -) 200 mg PO BID [facility] Last Admin: 08/21/16 09:02 Dose: 200 mg Lisinopril (Prinivil) 40 mg PO DAILY [facility] Last Admin: 08/21/16 09:02 Dose: 40 mg Potassium Chloride (Kcl Oral Solution -) 40 meq PO DAILY [facility] Last Admin: 08/21/16 09:03 Dose: 40 meq Senna (Senna -) 1 tab PO BID [facility] Last Admin: 08/21/16 09:02 Dose: 1 tab - Objective Vital Signs: Vital Signs Temperature 98.2 F 08/21/16 10:00 Pulse Rate 93 H 08/21/16 10:00 Respiratory Rate 18 08/21/16 10:00 Blood Pressure 159/90 08/21/16 10:00 O2 Sat by Pulse Oximetry (%) 94 L 08/21/16 10:00 Eyes: Yes: WNL, Conjunctiva Clear, EOM Intact HENT: Yes: WNL, Atraumatic, Normocephalic Neck: Yes: WNL, Supple, Trachea Midline Cardiovascular: Yes: Pulse Irregular Respiratory: Yes: WNL, Regular, CTA Bilaterally Gastrointestinal: Yes: WNL, Normal Bowel Sounds Genitourinary: Yes: WNL Musculoskeletal: Yes: WNL Extremities: Yes: WNL Edema: No Integumentary: Yes: WNL Neurological: Yes: WNL, Alert, Oriented ...Motor Strength: WNL Psychiatric: Yes: WNL Labs: CBC, BMP 08/21/16 06:00 08/18/16 07:00 INR, PTT INR 2.59 (0.82-1.09) H D 08/20/16 08:00 Assessment/Plan - Problems (1) CVA (cerebral vascular accident) Assessment/Plan: MRI: acute left frontal and parietal cortical infarcts; old right cerebellar infarcts. F/u with neurologist. Continue physical rehabilitation. Code(s): I63.9 - CEREBRAL INFARCTION, UNSPECIFIED (2) HTN (hypertension) Assessment/Plan: BP elevated; hydralazine increased to 100 mg bid (and may increase to maximum of 100 mg q8h). On labetalol IV; keep BP within parameters set by neurologist. May use ACEI or ARB, but follow renal parameters and electrolytes carefully. ECHO: normal LVEF; moderate MA and TR (RVSP 50-60 mmnHg); severe MR. TNI maximum 0.08. TSH WNL. Code(s): I10 - ESSENTIAL (PRIMARY) HYPERTENSION (4) Hyperlipidemia Assessment/Plan: LDL cholesterol 143; triglycerides 163 mg/dL. Started high-dose atorvastatin (40 mg daily); keep LDL cholesterol < 70 mg/dL. Code(s): E78.5 - HYPERLIPIDEMIA, UNSPECIFIED (5) Atrial fibrillation Code(s): I48.91 - UNSPECIFIED ATRIAL FIBRILLATION AC if OK with neurology (6) Hypokalemia Code(s): E87.6 - HYPOKALEMIA
[2016-08-21 13:34] VITALS: BP 112/67; PULSE 82; TEMP 97.7
--- NOTE | 2016-08-21 14:42 | DS ---
Physical Exam: SUBJECTIVE: Patient seen and examined OBJECTIVE: Vital Signs Period Temp Pulse Resp BP Sys/Krishna Pulse Ox Last 24 Hr 98.0 F-99.0 F 81-93 16-20 124-194/72-96 95-98 PHYSICAL EXAM GENERAL: Awake, alert, and oriented, HEAD: Normal with no signs of trauma. LUNGS: Breath sounds equal, clear to auscultation bilaterally. No wheezes, and no crackles. No accessory muscle use. HEART: irregular, no murmur, s1s2 normal ABDOMEN: Soft, nontender, not distended, normoactive bowel sounds, no guarding, no rebound, no masses. No hepatomegaly or splenomegaly. LOWER EXTREMITIES Normal range of motion, no edema. No clubbing or cyanosis. No cords, erythema, or tenderness. NEUROLOGICAL: facial paralysis on right side improving , tongue at midline, smile deviation on left side improved since yesterday , closes both eyes normally, sensation to touch b/l on face present . b/l lower limb moving, power 5/5, sensations intact, reflexes normal left upper limb power 5/5, sensation to fine touch intact, reflexes normal right upper limb strength 0/5 at level of R hand and wrist. 5/5 at level of triceps , 5/5 bicpes , shoulder abduction better than yesterday, sensation to fine touch absent on dorsal aspect of his hand PSYCHIATRIC: Cooperative. Appropriate mood and affect. SKIN: Warm, dry, normal turgor, no rashes or lesions noted. LABS Laboratory Results - last 24 hr 08/20/16 08/20/16 08/20/16 08:00 08:00 08:00 WBC 6.6 RBC 4.09 Hgb 11.8 Hct 35.8 MCV 87.5 MCHC 32.9 RDW 12.4 Plt Count 193 MPV 9.8 INR 2.59 H D PTT (Actin FS) 66.4 H CBCD WBC 6.6 K/mm3 (4.0-10.0) 08/20/16 08:00 RBC 4.09 M/mm3 (4.00-5.60) 08/20/16 08:00 Hgb 11.8 GM/dL (11.7-16.9) 08/20/16 08:00 Hct 35.8 % (35.4-49) 08/20/16 08:00 MCV 87.5 fl (80-96) 08/20/16 08:00 MCHC 32.9 g/dl (32.0-35.9) 08/20/16 08:00 RDW 12.4 % (11.9-15.9) 08/20/16 08:00 Plt Count 193 K/MM3 (134-434) 08/20/16 08:00 MPV 9.8 fl (7.5-11.1) 08/20/16 08:00 CMP Sodium 140 mmol/L (136-145) 08/18/16 07:00 Potassium 3.9 mmol/L (3.5-5.1) 08/18/16 07:00 Chloride 104 mmol/L (98-107) 08/18/16 07:00 Carbon Dioxide 25 mmol/L (21-32) 08/18/16 07:00 Anion Gap 11 (8-16) 08/18/16 07:00 BUN 13 mg/dL (7-18) 08/18/16 07:00 Creatinine 1.3 mg/dL (0.7-1.3) 08/18/16 07:00 Creat Clearance w eGFR 54.57 (>60) 08/18/16 07:00 Random Glucose 98 mg/dL (74-106) 08/18/16 07:00 Calcium 7.7 mg/dL (8.5-10.1) L 08/18/16 07:00 Total Bilirubin 0.7 mg/dL (0.2-1.0) 08/18/16 07:00 AST 19 U/L (15-37) D 08/18/16 07:00 ALT 16 U/L (12-78) D 08/18/16 07:00 Alkaline Phosphatase 69 U/L (45-117) 08/18/16 07:00 Total Protein 6.2 g/dl (6.4-8.2) L 08/18/16 07:00 Albumin 2.8 g/dl (3.4-5.0) L 08/18/16 07:00 CARDIAC ENZYMES Creatine Kinase 403 IU/L (39-308) H D 08/15/16 05:20 Troponin I 0.07 ng/ml (0.00-0.05) H 08/16/16 11:35 Microbiology 08/13/16 22:45 Nasopharyngeal Swab Respiratory Virus Panel - Final 08/13/16 22:45 Blood - Peripheral Venous Blood Culture - Final NO GROWTH AFTER 5 DAYS INCUBATION 08/13/16 22:15 Blood - Peripheral Venous Blood Culture - Final NO GROWTH AFTER 5 DAYS INCUBATION 08/13/16 15:15 Urine - Urine - Catheterized Urine Culture - Final NO GROWTH OBTAINED 08/13/16 22:45 Nasopharyngeal Swab Influenza Types A,B Antigen (YESI) - Final 08/13/16 22:45 Nasopharyngeal Swab - Final [id number] MRI/BRAIN MRI W/O CONTRAST- IMPRESSION: Acute left frontal and left parietal cortical infarcts are seen. Chronic right cerebral and bilateral cerebellar infarcts are noted. Reported By: Eran Mathews MD 08/14/16 2005 * Carotid doppler:. IMPRESSION: Minimal atherosclerotic disease with no evidence of hemodynamically significant stenoses. Reported By: Vitor Patterson MD 08/15/16 1058 * Renal ultrasound: IMPRESSION: Unremarkable bilateral renal ultrasound. Reported By: Emily Gonzalez MD 08/15/16 1038 HOSPITAL COURSE: The patient is a 71 year old male, with a significant past medical history of HTN, HDL, CVA (October 2015 with no deficits) and bilateral blindness, who present to the emergency department via EMS today for further evaluation of left facial droop and right arm weakness for approximately 40 minutes prior to ER arrival. Information was obtained by EMS. As per EMS, at baseline the patient is alert, oriented, verbal and ambulatory. Today , the patient was in his home, watching television, when his home health aide noted that the patient was nonverbal, with left facial droop. EMS was activated. 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 examination and investigations were done and patient was found to have ischemic stroke, new onset atrial fibrilation, HTN emergency, evelin, hyperlipidemia, elevated trop i. For acute ischemic stroke neurologist dr alfaro was consulted and TPA was given. Post TPA patient was shifetd to ICU. Slowly symptoms recovered, patient sensation on right side of face recovered, voice improved, smile improved and deviation decreased. When patient came to hospital he was unable to speak. Power in right upper limb improved except patient unable to move right hand. when he came to hospital he was unable to use right uppe limb. For atrial fibrillation patient was started on heparin drip and later on coumadin. heparin drip stopped when INR came between 2-3, heart rate was controled with labetalol . For HTN emergency initially patient was started on labetalol drip and later switched to 200mg po bid. Patient was also started on hydralazine 100mg bid and lsinopril 40mg daily. patient goal is to keep sbp below 140. For evelin it could be due to HTN and prerenal it recovered after gentlre hydration. For hyperlipidemia patient was stated on atorvastatin 40mg. Now patient is accepting orally. Patient is stable and is discharged to rehab Advice Follow up with neurologist Dr eliu roldan Follow up with PCP Dr Uribe Follow up with publicity expert Tim you might need a stress test, which could be done in outpatient Maintain INR between 2-3 Get INr checked on 08/22/16 and then get it check frequently Monitor your blood pressure Eat soft diet, low fat take fall precautions Take aspiration precautions discussed with Dr Fields patient can tolerate 3 hour of physical therapy If develop nausea, vomiting, chest pain, sob , weakness in any part of body contact doctor or come to hospital Date of Admission:08/13/16 Date of Discharge: 08/21/16 Minutes to complete discharge: 45 Discharge Summary Reason For Visit: CVA Current Active Problems Atrial fibrillation (Acute) CVA (cerebral vascular accident) (Acute) 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) (Acute) HTN (hypertension) (Acute) Hypokalemia (Acute) Hyperlipidemia (Chronic) Condition: Improved - Instructions Diet, Activity, Other Instructions: Follow up with neurologist Dr eliu roldan Follow up with PCP Dr Uribe Follow up with publicity expert Tim you might need a stress test, which could be done in outpatient Maintain INR between 2-3 Get INr checked on 08/22/16 and then get it check frequently Monitor your blood pressure Eat soft diet, low fat take fall precautions Take aspiration precautions If develop nausea, vomiting, chest pain, sob , weakness in any part of body contact doctor or come to hospital Referrals: Charlotte Alfaro MD [Staff Physician] - 1 Week Nehemias Uribe MD [Staff Physician] - 1 Week Yuri Dumont MD [Staff Physician] - 1 Week Disposition: [facility] - Home Medications Comprehensive Discharge Medication List: Ambulatory Orders Atorvastatin Ca [Lipitor] 40 mg PO HS tablet 08/20/16 Hydralazine HCl [Apresoline -] 100 mg PO BID tablet 08/20/16 Labetalol HCl [Normodyne -] 200 mg PO BID tablet 08/20/16 Lisinopril [Prinivil] 40 mg PO DAILY tablet 08/20/16 Sennosides [Senna -] 1 tab PO BID tablet 08/20/16 Warfarin Na [Coumadin] 5 mg PO DAILY@1800 #30 tablet 08/20/16 This patient is new to me today: No Emergency Visit: Yes ED Registration Date: 08/13/16 Care time: The patient presented to the Emergency Department on the above date and was hospitalized for further evaluation of their emergent condition. 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) (Acute) HTN (hypertension) (Acute) Hypokalemia (Acute) Hyperlipidemia (Chronic) Condition: Improved - Instructions Diet, Activity, Other Instructions: Follow up with neurologist Dr eliu roldan Follow up with PCP Dr Uribe Follow up with publicity expert Tim you might need a stress test, which could be done in outpatient Maintain INR between 2-3 Get INr checked on 08/22/16 and then get it check frequently Monitor your blood pressure Eat soft diet, low fat take fall precautions Take aspiration precautions If develop nausea, vomiting, chest pain, sob , weakness in any part of body contact doctor or come to hospital Referrals: Charlotte Alfaro MD [Staff Physician] - 1 Week Nehemias Uribe MD [Staff Physician] - 1 Week Yuri Dumont MD [Staff Physician] - 1 Week Disposition: [facility] - Home Medications Comprehensive Discharge Medication List: Ambulatory Orders Atorvastatin Ca [Lipitor] 40 mg PO HS tablet 08/20/16 Hydralazine HCl [Apresoline -] 100 mg PO BID tablet 08/20/16 Labetalol HCl [Normodyne -] 200 mg PO BID tablet 08/20/16 Lisinopril [Prinivil] 40 mg PO DAILY tablet 08/20/16 Sennosides [Senna -] 1 tab PO BID tablet 08/20/16 Warfarin Na [Coumadin] 5 mg PO DAILY@1800 #30 tablet 08/20/16 This patient is new to me today: No Emergency Visit: Yes ED Registration Date: 08/13/16 Care time: The patient presented to the Emergency Department on the above date and was hospitalized for further evaluation of their emergent condition. Critical Care patient: No - Discharge Referral Referred to [facility] No
--- NOTE | 2016-08-21 14:42 | PN ---
Teaching Attending Note Name of Resident: Danish Kaufman ATTENDING PHYSICIAN STATEMENT I saw and evaluated the patient. I reviewed the resident's note and discussed the case with the resident. I agree with the resident's findings and plan as documented. SUBJECTIVE: Patient is feeling better with no acute distress, no shortness of breath, no nausea or vomiting , no headache OBJECTIVE: Vital Signs Temperature 97.7 F 08/21/16 13:33 Pulse Rate 82 08/21/16 13:33 Respiratory Rate 16 08/21/16 13:33 Blood Pressure 112/67 08/21/16 13:33 O2 Sat by Pulse Oximetry (%) 94 L 08/21/16 10:00 GENERAL: Awake, alert, and oriented,NAd HEAD: Normal with no signs of trauma.Eyes: legally blind bilaterally x 1 year as per patient LUNGS: Breath sounds equal, clear to auscultation bilaterally. No wheezes, and no crackles. No accessory muscle use. HEART: irregular-irregular, no murmur, s1s2 positive ABDOMEN: Soft, nontender, not distended, normoactive bowel sounds, no guarding, no rebound, no masses. No hepatomegaly or splenomegaly. LOWER EXTREMITIES Normal range of motion, no edema. No clubbing or cyanosis. No cords, erythema, or tenderness. NEUROLOGICAL: Right facial droop , tongue at midline, closes both eyes normally, b/l lower limb moving, power 5/5, sensations intact, reflexes normal left upper limb power 5/5, sensation to fine touch intact, reflexes normal, right upper limb strength 4/5 , patient cannot squeeze the right hand, hand is flaccid. 5/5 at level of triceps , 4/5 bicpes . PSYCHIATRIC: Cooperative. Appropriate mood and affect. SKIN: Warm, dry, normal turgor, no rashes or lesions noted. CBCD WBC 6.6 K/mm3 (4.0-10.0) 08/21/16 06:00 RBC 4.11 M/mm3 (4.00-5.60) 08/21/16 06:00 Hgb 11.9 GM/dL (11.7-16.9) 08/21/16 06:00 Hct 36.3 % (35.4-49) 08/21/16 06:00 MCV 88.3 fl (80-96) 08/21/16 06:00 MCHC 32.9 g/dl (32.0-35.9) 08/21/16 06:00 RDW 12.4 % (11.9-15.9) 08/21/16 06:00 Plt Count 204 K/MM3 (134-434) 08/21/16 06:00 MPV 10.3 fl (7.5-11.1) 08/21/16 06:00 CMP Sodium 140 mmol/L (136-145) 08/18/16 07:00 Potassium 3.9 mmol/L (3.5-5.1) 08/18/16 07:00 Chloride 104 mmol/L (98-107) 08/18/16 07:00 Carbon Dioxide 25 mmol/L (21-32) 08/18/16 07:00 Anion Gap 11 (8-16) 08/18/16 07:00 BUN 13 mg/dL (7-18) 08/18/16 07:00 Creatinine 1.3 mg/dL (0.7-1.3) 08/18/16 07:00 Creat Clearance w eGFR 54.57 (>60) 08/18/16 07:00 Random Glucose 98 mg/dL (74-106) 08/18/16 07:00 Calcium 7.7 mg/dL (8.5-10.1) L 08/18/16 07:00 Total Bilirubin 0.7 mg/dL (0.2-1.0) 08/18/16 07:00 AST 19 U/L (15-37) D 08/18/16 07:00 ALT 16 U/L (12-78) D 08/18/16 07:00 Alkaline Phosphatase 69 U/L (45-117) 08/18/16 07:00 Total Protein 6.2 g/dl (6.4-8.2) L 08/18/16 07:00 Albumin 2.8 g/dl (3.4-5.0) L 08/18/16 07:00 CARDIAC ENZYMES Creatine Kinase 403 IU/L (39-308) H D 08/15/16 05:20 Troponin I 0.07 ng/ml (0.00-0.05) H 08/16/16 11:35 Current Medications Generic Name Dose Route Start Last Admin Trade Name Freq PRN Reason Stop Dose Admin Atorvastatin Calcium 40 mg 08/15/16 22:00 08/20/16 21:35 Lipitor - PO 40 mg HS JED Administration Hydralazine HCl 100 mg 08/20/16 22:00 08/21/16 09:02 Apresoline - PO 100 mg BID JED Administration Labetalol HCl 200 mg 08/15/16 22:00 08/21/16 09:02 Normodyne - PO 200 mg BID JED Administration Lisinopril 40 mg 08/16/16 10:00 08/21/16 09:02 Prinivil PO 40 mg DAILY JED Administration Potassium Chloride 40 meq 08/17/16 10:00 08/21/16 09:03 Kcl Oral Solution - PO 40 meq DAILY JED Administration Senna 1 tab 08/18/16 01:00 08/21/16 09:02 Senna - PO 1 tab BID JED Administration Medication Instructions Recorded Atorvastatin Ca [Lipitor] 40 mg PO HS tablet 08/20/16 Hydralazine HCl [Apresoline -] 100 mg PO BID tablet 08/20/16 Labetalol HCl [Normodyne -] 200 mg PO BID tablet 08/20/16 Lisinopril [Prinivil] 40 mg PO DAILY tablet 08/20/16 Sennosides [Senna -] 1 tab PO BID tablet 08/20/16 Warfarin Na [Coumadin] 5 mg PO DAILY@1800 #30 tablet 08/20/16 ASSESSMENT AND PLAN: 71 y/o man with h/o CVA , blindness, HTN, HLP who presented with facial droop and aphasia . he was diagnosed with a stroke and given TPA . # Acute L parietal and frontal Lobe stroke : s/p TPA with on going improvement On coumad 5mg with level of 2.59, patient will be discharged on 5mg po daily with daily PT/INR check or as per facility. cont statin . continued speech eval. Seen the patient by neurologist ,recommends [facility]. Patient will be able to tolerate 3hr physical therapy on a daily basis. # New onset A fib: Rate is controlled on BB , cont Labetalol , do not increase BB due to the pauses - CHADSVASC score 6 .High risk for recurrent stroke . off Heparin gtt.on coumadin 5mg daily will continue Pt/INR in the rehab place every 2 weeks . Coumadin is a better option compared to NOAC given risk for fall and possible need for reversal. # HTN emergency :on labetolol 200 mg po BID ,will continue to monitor for now also on lisinopril 40 continue, PRN HZN as needed # COURTNEY : likely due to HTN emergency, resolved now # Mild elevation of troponin : possible NSTEMI due to demand ischemia . trended down. stress test when stable. appreciate Card Recs . 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 Patient's son live in [place] and doesn't know the phone #s . DVT px : coumadin Diet : place on puree with thick liquids . cont speech eval . and physical therapy at the [facility] for 3 hours daily Patient is being discharged to [facility]
[2016-08-21] MEDS ORDERED: WARFARIN NA 5 MG TABLET (UD) PO ONE (18:00)
--- NOTE | 2016-08-22 15:10 | EKG ---
Test Reason : Blood Pressure : / mmHG Vent. Rate : 090 BPM Atrial Rate : 340 BPM P-R Int : 000 ms QRS Dur : 088 ms QT Int : 368 ms P-R-T Axes : 000 -10 125 degrees QTc Int : 450 ms ATRIAL FIBRILLATION SEPTAL INFARCT (CITED ON OR BEFORE 13-AUG-2016) T WAVE ABNORMALITY, CONSIDER LATERAL ISCHEMIA OR DIGITALIS EFFECT ABNORMAL ECG WHEN COMPARED WITH ECG OF 14-AUG-2016 09:11, ATRIAL FIBRILLATION HAS REPLACED ATRIAL FLUTTER T WAVE INVERSION LESS EVIDENT IN LATERAL LEADS Confirmed by ANNE YOUSIF MD ([id number]) on 08/22/2016 3:10:27 PM Referred By: JONNY CACERES Confirmed By:ANNE YOUSIF MD
== END 2016-08-21 17:00 | DRG 61 ==
LOC: JER 13:58 → JERBED 16:26 → JICU 16:42 → J4S 08-16 21:04
PROVIDERS: ADMIT Internal Medicine; ATTEND Internal Medicine
DX: I63.9 Cerebral infarction, unspecified (principal); I21.4 Non-ST elevation (NSTEMI) myocardial infarction; I16.1 Hypertensive emergency; G81.91 Hemiplegia, unspecified affecting right dominant side; N17.9 Acute kidney failure, unspecified; E78.5 Hyperlipidemia, unspecified; I48.91 Unspecified atrial fibrillation; I12.9 Hypertensive chronic kidney disease with stage 1 through stage 4 chronic kidney disease, or unspecified chronic kidney disease; N18.9 Chronic kidney disease, unspecified; R47.01 Aphasia; E87.6 Hypokalemia; E66.9 Obesity, unspecified; Z68.28 Body mass index [BMI] 28.0-28.9, adult; H54.8 Legal blindness, as defined in USA
CPT/HCPCS: 36415; 70450-TC; 70551-TC; 71010-TC; 76775-TC; 80048; 80053; 81003; 81015; 82272; 82465; 82550; 82553; 83718; 83721; 83735; 84100; 84443; 84478; 84484; 85025; 85027; 85610; 85730; 86850; 86900; 86901; 87040; 87086; 87254; 87804; 93005; 93010; 93306-TC; 93880-TC; 97001-GP; 97116-GP; 99285-25; J1644; J2997

== ENCOUNTER 2016-10-11 10:57 | Observation (INO) | payer OTHER ==
[2016-10-11 11:12] VITALS: BMI 29.5
[2016-10-11] MEDS ORDERED: LISINOPRIL 20 MG TABLET (FP) PO ONE (11:19)
[2016-10-11] MEDS ORDERED: hydrALAZINE HCL 50 MG TABLET (FP) PO ONE (11:19)
[2016-10-11] MEDS ORDERED: LABETALOL HCL 200 MG TABLET (FP) PO ONE (11:19)
--- NOTE | 2016-10-11 11:19 | PDOC ---
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 Patient was noted to be 165/110 on ER arrival. As per EMS, patient was noted to have a fluctuating systolic blood pressure of 180-190, which is atypical for him. This measurement was taken on routine care and before the patient took his morning medications, as he refuses to do so. He believes that his hypertensive medications do not help him at all and requests changes to his medications. He denies fever, chills, cough, hemoptysis, diaphoresis, shortness of breath, headache. He denies jaw/ back pain, chest pain, lower extremity pain/swelling, calf tenderness/pain He deies abdominal pain, nausea, vomiting, diarrhea. Allergies: No Known Drug Allergies. Past Surgical History: None reported. Social History: No tobacco, ETOH and recreational drug use. Primary Care Physician: Dr. Toya Gonzales [phone] <Cherie Cardenas - Last Filed: 10/11/16 16:29> - General History Source: Patient Exam Limitations: No Limitations <Ryanne Currie - Last Filed: 10/12/16 07:36> - General Stated Complaint: HIGH BLOOD PRESSURE Past History <Cherie Cardenas - Last Filed: 10/11/16 16:29> - Past Medical History Cardiac Disorders: Yes (afib) CVA: Yes (2016 rue weakness) HTN: Yes - Psycho/Social/Smoking Cessation Hx Anxiety: No Suicidal Ideation: No Smoking History: Never smoked Have you smoked in the past 12 months: No Information on smoking cessation initiated: No Hx Alcohol Use: No Drug/Substance Use Hx: No <Ryanne Currie - Last Filed: 10/12/16 07:36> - Past Medical History Allergies/Adverse Reactions: Allergies Allergy/AdvReac Type Severity Reaction Status Date / Time No Known Allergies Allergy Verified 10/11/16 11:09 Home Medications: Ambulatory Orders Atorvastatin Ca [Lipitor] 40 mg PO HS tablet 08/20/16 Hydralazine HCl [Apresoline -] 100 mg PO BID tablet 08/20/16 Labetalol HCl [Normodyne -] 200 mg PO BID tablet 08/20/16 Lisinopril [Prinivil] 40 mg PO DAILY tablet 08/20/16 Sennosides [Senna -] 1 tab PO BID tablet 08/20/16 Warfarin Na [Coumadin] 6 mg PO DAILY@1800 10/11/16 Review of Systems - Review of Systems Able to Perform ROS?: Yes Comments:: 10/11/16 11:26 GENERAL/CONSTITUTIONAL: No: fever, chills, weakness, loss of appetite. HEAD, EYES, EARS, NOSE AND THROAT: No: change in vision, ear pain, discharge, sore throat, throat swelling. CARDIOVASCULAR: Yes: Elevated Blood Pressure (165/110 upon ER arrival) No: chest pain, lightheadedness, palpitations, syncope RESPIRATORY: No: cough, shortness of breath, wheezing, hemoptysis, stridor. GASTROINTESTINAL: No: nausea, vomiting, abdominal cramping, diarrhea, rectal bleeding, constipation. GENITOURINARY: No: dysuria, hematuria, frequency, urgency, flank pain. MUSCULOSKELETAL: No: back pain, neck pain, joint pain, muscle swelling or pain SKIN AND BREASTS: No: lesions, pallor, rash or easy bruising. NEUROLOGIC: No: headache, vertigo, paresthesias, weakness ENDOCRINE: No: unexplained weight gain or loss HEMATOLOGIC/LYMPHATIC: No: anemia, easy bleeding, swelling nodes <Cherie Cardenas - Last Filed: 10/11/16 16:29> *Physical Exam - Vital Signs Last Vital Signs Temp Pulse Resp BP Pulse Ox 98.7 F 88 20 165/110 100 10/11/16 11:09 10/11/16 11:09 10/11/16 11:09 10/11/16 11:09 10/11/16 11:09 - Physical Exam Comments: 10/11/16 11:26 GENERAL: The patient is in no acute distress. HEAD: Normal with no signs of trauma. EYES: PERRLA, Bilateral nystagmus sclera anicteric, conjunctiva clear. ENT: Ears normal, nares patent, oropharynx clear without exudates. Moist mucous membranes. NECK: Normal range of motion, supple without lymphadenopathy, JVD, or masses. LUNGS: Breath sounds equal, clear to auscultation bilaterally. No wheezes, and no crackles. HEART:Irregularly, irregular rate and rhythm without murmur, rub or gallop. ABDOMEN: Soft, nontender, normoactive bowel sounds. No guarding, no rebound. EXTREMITIES: Normal range of motion, no edema. No clubbing or cyanosis. No erythema, or tenderness. NEUROLOGICAL: Cranial nerves II through XII grossly intact. Normal speech. Right sided hemiplegia. MUSCULOSKELETAL: Back non-tender to palpation, no CVA tenderness SKIN: Warm, Dry, normal turgor, no rashes or lesions noted. <Cherie Cardenas - Last Filed: 10/11/16 16:29> - Vital Signs Last Vital Signs Temp Pulse Resp BP Pulse Ox 98.7 F 88 20 165/110 100 10/11/16 11:09 10/11/16 11:09 10/11/16 11:09 10/11/16 11:09 10/11/16 11:09 <Ryanne Currie - Last Filed: 10/12/16 07:36> Heart Score/ECG Review #1 ECG reviewed & interpreted by me at: 11:22 10/11/16 11:22 Twelve-lead EKG was performed and reviewed by me. afib with rate of 89bpm. The axis is normal. The intervals are normal - QRS: 88ms, QTC:428ms. There are no ST elevations or depressions. T waves nml <Ryanne Currie - Last Filed: 10/12/16 07:36> ED Treatment Course - LABORATORY CBC & Chemistry Diagram: 10/11/16 12:00 10/11/16 12:00 - RADIOLOGY Radiograph Interpretation: 10/11/16 12:44 EXAM: RAD/CHEST X-RAY PORTABLE IMPRESSION: Frontal view of the chest is provided. Prior study of August 14, 2016 is available for comparison. There is marked cardiomegaly. Recommend clinical correlation for possibility of pericardial effusion. Lung mckinnon appear clear without infiltrate or pleural effusion. There is calcification of the aorta consistent with atherosclerotic disease. There are degenerative changes of the spine. <Cherie Cardenas - Last Filed: 10/11/16 16:29> - LABORATORY CBC & Chemistry Diagram: 10/11/16 12:00 10/11/16 12:00 <Ryanne Currie - Last Filed: 10/12/16 07:36> Medical Decision Making - Medical Decision Making 10/11/16 11:35 A call was placed to patient's Primary Care Physician, Dr. Toya Gonzales at [phone]. 10/11/16 13:[address] Ayala. <TheresaCherie - Last Filed: 10/11/16 16:29> - Medical Decision Making 10/11/16 11:17 A portion of this note was documented by scribe services under my direction. I have reviewed the details of the note, within reason, and agree with the documentation with the following case summary and management plan written by me. Nursing documentation reviewed and incorporated into medical decision making The patient is a 71-year-old man who presents to the ER with a complaint of hypertension. Pt is accompanied by his home health aide. 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 the patient was see at the clinic today, blood pressure noted to be elevated Pt DID NOT take his morning meds Pt sent to the ER despite NO SYMPTOMS I received a call from pt social services manager who tells me that they do not have any one to give him his medications and for that reason they do not want him to come back to their facility I have explained this is not a reason for admission I have referred them to our pillowcase sewer Will do basic labs to ensure no missed pathology Will do CXR Will do EKG 10/11/16 12:34 Laboratory Tests 10/11/16 12:00 WBC 5.0 Hgb 12.0 Hct 37.2 Plt Count 162 D Neutrophils % 54.8 Lymphocytes % 29.6 10/11/16 13:08 Laboratory Tests 10/11/16 12:00 Sodium 143 Potassium 4.2 Chloride 109 H Carbon Dioxide 25 BUN 18 D Creatinine 1.3 Random Glucose 89 Creatine Kinase 473 H Troponin I 0.03 D 10/11/16 15:54 CXR: cardiomegaly, ? pericardial effusion 10/11/16 16:08 Will order for ECHO case reviewed with case management Halima has had multiple conversations with the facility for this patient They are uncomfortable with him there given his medication non compliance and irritability Per the faclity, they do not think he was a safe discharge to them from [facility]. The patient is upset that the aide with him during the week is NOT the one he likes call placed to [facility], they do not want to accept this patient back (though he has time remaining on his Medicaid) due to non compliance Pt current residence want him to go to a long term care social worker nursing facility AGAINST patient's will Plan as discussed with Halima (gum worker): PT consult ---> (done: performed, pt is ambulatory with cane short distances) Psych consult --> (?competence, call placed to [facility]. He called back stating he will do this consult while pt in in the hospital NOT in the ER) Given ? of pericardial effusion raised on CXR Pt ECHO needs to be followed up Cardiology to see this patient Clinical impression: HTN, placement issues, ?cardiomegaly vs. pericardial effusion <Ryanne Currie - Last Filed: 10/12/16 07:36> *DC/Admit/Observation/Transfer - Attestations Scribe Attestion: 10/11/16 11:26 Documentation prepared by Cherie Cardenas, acting as medical staff coordinator for Ryanne Currie MD. <Cherie Cardenas - Last Filed: 10/11/16 16:29> - Discharge Dispostion Admit: Yes <Ryanne Currie - Last Filed: 10/12/16 07:36> Diagnosis at time of Disposition: HTN (hypertension) Qualifiers: Hypertension type: other secondary hypertension Qualified Code(s): I15.8 - Other secondary hypertension - Discharge Dispostion Condition at time of disposition: Stable - Referrals
[2016-10-11] MEDS ORDERED: LISINOPRIL 20 MG TABLET (FP) ONE (11:37)
[2016-10-11] MEDS ORDERED: hydrALAZINE HCL 25 MG TABLET (FP) ONE (11:37)
[2016-10-11] MEDS ORDERED: LABETALOL HCL 100 MG TABLET (FP) ONE (11:38)
[2016-10-11 12:10] LABS: BASOPHIL 0.9 % (0-2.0); EOSINOPHIL 5.7 % (0-4.5); MCH 28.4 pg (25.7-33.7); MCHC 32.1 g/dl (32.0-35.9); MEAN CELL VOLUME 88.4 fl (80-96); MEAN PLT VOLUME 9.8 fl (7.5-11.1); NEUTROPHILS 54.8 % (42.8-82.8); PLATELET COUNT 162 K/MM3 (134-434); RDW 14.4 % (11.9-15.9)
[2016-10-11 12:50] LABS: ALBUMIN 3.6 g/dl (3.4-5.0); BILIRUBIN,TOTAL 0.3 mg/dL (0.2-1.0); CALCIUM 8.2 mg/dL (8.5-10.1); CREATININE 1.3 mg/dL (0.7-1.3); TOT PROT 6.7 g/dl (6.4-8.2)
[2016-10-11 12:53] LABS: TROPONIN I 0.03 ng/ml (0.00-0.05)
[2016-10-11 14:10] LABS: INR 3.64 (0.82-1.09); PROTHROMBIN TIME (PATIENT) 41.1 SEC (9.98-11.88)
--- NOTE | 2016-10-11 15:07 | HP ---
CHIEF COMPLAINT: High blood pressure PCP: Dr. Joaquin Pepe HISTORY OF PRESENT ILLNESS: This is a 71 year old male assisted living facility resident with a history of HTN, HLD, Afib on warfarin, CVA x2 (October 2015 & July 2016, residual dysarthria right upper extremity weakness), and blindness brought in by EMS for elevated blood pressure. He reports that he does not understand his medication regimen and that his blood pressure has been [id number]. ER course was notable for: (1) EKG: Atrial fibrillation with ventricular rate of 89bpm (2) CXR with marked cardiomegaly concerning for large pericardial effusion (3) TNI neg x 1, CK mildly elevated at 473 Recent Travel: None Social History: Lives in apartment with aide services Smoking: Non-smoker Alcohol: None Drugs: None Family History: Non-contributory Allergies No Known Allergies Allergy (Verified 10/11/16 11:09) HOME MEDICATIONS: Home Medications Medication Instructions Recorded Atorvastatin Ca [Lipitor] 40 mg PO HS tablet 08/20/16 Hydralazine HCl [Apresoline -] 100 mg PO BID tablet 08/20/16 Labetalol HCl [Normodyne -] 200 mg PO BID tablet 08/20/16 Lisinopril [Prinivil] 40 mg PO DAILY tablet 08/20/16 Sennosides [Senna -] 1 tab PO BID tablet 08/20/16 Warfarin Na [Coumadin] 6 mg PO DAILY@1800 10/11/16 REVIEW OF SYSTEMS CONSTITUTIONAL: Absent: fever, chills, diaphoresis, generalized weakness, malaise, loss of appetite, weight change HEENT: Absent: rhinorrhea, nasal congestion, throat pain, throat swelling, difficulty swallowing, mouth swelling, ear pain, eye pain CARDIOVASCULAR: Absent: chest pain, syncope, palpitations, irregular heart rate, lightheadedness , peripheral edema RESPIRATORY: Absent: cough, shortness of breath, dyspnea with exertion, orthopnea, wheezing, stridor, hemoptysis GASTROINTESTINAL: Absent: abdominal pain, abdominal distension, nausea, vomiting, diarrhea, constipation, melena, hematochezia GENITOURINARY: Absent: dysuria, frequency, urgency, hesitancy, hematuria, flank pain, genital pain MUSCULOSKELETAL: Absent: myalgia, arthralgia, joint swelling, back pain, neck pain SKIN: Absent: rash, itching, pallor HEMATOLOGIC/IMMUNOLOGIC: Absent: easy bleeding, easy bruising, lymphadenopathy, frequent infections ENDOCRINE: Absent: unexplained weight gain, unexplained weight loss, heat intolerance, cold intolerance NEUROLOGIC: Absent: headache, focal weakness or paresthesias, dizziness, unsteady gait, seizure, mental status changes, bladder or bowel incontinence PSYCHIATRIC: Absent: anxiety, depression, suicidal or homicidal ideation, hallucinations. PHYSICAL EXAMINATION Vital Signs - 24 hr 10/11/16 11:09 Temperature 98.7 F Pulse Rate 88 Respiratory 20 Rate Blood Pressure 165/110 O2 Sat by Pulse 100 Oximetry (%) GENERAL: Awake, alert, and fully oriented, in no acute distress. EYES: Bilateral blindness/opacification of lens. EARS, NOSE, THROAT: Ears normal, nares patent, oropharynx clear without exudates. Moist mucous membranes. NECK: Normal range of motion, supple without lymphadenopathy, JVD, or masses. LUNGS: Breath sounds equal, clear to auscultation bilaterally. No wheezes, and no crackles. No accessory muscle use. HEART: Regular rate and rhythm, normal S1 and S2 without murmur, rub or gallop. ABDOMEN: Soft, nontender, not distended, normoactive bowel sounds, no guarding, no rebound, no masses. No hepatomegaly or splenomegaly. MUSCULOSKELETAL: Right wrist splinted. Normal range of motion at all joints. No bony deformities or tenderness. No CVA tenderness. UPPER EXTREMITIES: 2+ pulses, warm, well-perfused. No cyanosis. No clubbing. Cap refill <2 seconds. No peripheral edema. LOWER EXTREMITIES: 2+ pulses, warm, well-perfused. No calf tenderness. No peripheral edema. NEUROLOGICAL: Dysarthric. Mild RUE weakness. PSYCHIATRIC: Uncooperative. SKIN: Warm, dry, normal turgor, no rashes or lesions noted. Laboratory Results - last 24 hr 10/11/16 10/11/16 10/11/16 12:00 12:00 12:00 WBC 5.0 RBC 4.21 Hgb 12.0 Hct 37.2 MCV 88.4 MCHC 32.1 RDW 14.4 D Plt Count 162 D MPV 9.8 Neutrophils % 54.8 Lymphocytes % 29.6 Monocytes % 9.0 Eosinophils % 5.7 H Basophils % 0.9 INR Sodium 143 Potassium 4.2 Chloride 109 H Carbon Dioxide 25 Anion Gap 9 BUN 18 D Creatinine 1.3 Creat Clearance w eGFR 54.57 Random Glucose 89 Calcium 8.2 L Total Bilirubin 0.3 D AST 17 ALT 15 Alkaline Phosphatase 81 Creatine Kinase 473 H CK-MB (CK-2) 3.626 H CK-MB (CK-2) Rel Index Cancelled Troponin I 0.03 D Total Protein 6.7 Albumin 3.6 D Blood Type Antibody Screen 10/11/16 10/11/16 13:49 13:49 WBC RBC Hgb Hct MCV MCHC RDW Plt Count MPV Neutrophils % Lymphocytes % Monocytes % Eosinophils % Basophils % INR 3.64 H D Sodium Potassium Chloride Carbon Dioxide Anion Gap BUN Creatinine Creat Clearance w eGFR Random Glucose Calcium Total Bilirubin AST ALT Alkaline Phosphatase Creatine Kinase CK-MB (CK-2) CK-MB (CK-2) Rel Index Troponin I Total Protein Albumin Blood Type B POSITIVE Antibody Screen Negative ASSESSMENT/PLAN: 71 year old male placed in observation for hypertensive urgency , abnormal CXR, and possible SNF placement. Discussed extensively with case management and this is the disposition that was requested as the patient's facility will not accept him back at this time. Problem List - Problem (1) HTN (hypertension) Assessment/Plan: -Improved with administration of home medications (hydralazine, lisinopril, labetolol), but remains elevated (150/98 during my evaluation) -Cardiology was consulted for further recommendations -Psych evaluation for competency as patient is refusing SNF placement Code(s): I10 - ESSENTIAL (PRIMARY) HYPERTENSION Qualifiers: Hypertension type: other secondary hypertension Qualified Code(s): I15.8 - Other secondary hypertension (2) Atrial fibrillation Assessment/Plan: -INR is supratherapeutic -Hold warfarin pending echo read to r/o pericardial effusion Code(s): I48.91 - UNSPECIFIED ATRIAL FIBRILLATION (3) CVA (cerebral vascular accident) Assessment/Plan: -Residual dysarthria and RUE weakness -No active issues Code(s): I63.9 - CEREBRAL INFARCTION, UNSPECIFIED Qualifiers: CVA mechanism: embolism (4) Hyperlipidemia Assessment/Plan: -Continue statin Code(s): E78.5 - HYPERLIPIDEMIA, UNSPECIFIED (5) Cardiomegaly Assessment/Plan: -Monitor on telemetry -Follow up echo read to rule out large pericardial effusion Code(s): I51.7 - CARDIOMEGALY (6) DVT prophylaxis Assessment/Plan: -Therapeutic on warfarin Code(s): UNC1830 - Visit type - Emergency Visit Emergency Visit: Yes ED Registration Date: 10/11/16 Care time: The patient presented to the Emergency Department on the above date and was hospitalized for further evaluation of their emergent condition. - New Patient This patient is new to me today: Yes Date on this admission: 10/11/16 - Critical Care Critical Care patient: No
[2016-10-11] MEDS ORDERED: hydrALAZINE HCL 20 MG/ML VIAL IVPUSH ONE (16:07)
[2016-10-11] MEDS ORDERED: hydrALAZINE HCL 20 MG/ML VIAL ONE (16:31)
--- NOTE | 2016-10-11 16:33 | EKG ---
Test Reason : Blood Pressure : / mmHG Vent. Rate : 089 BPM Atrial Rate : 131 BPM P-R Int : 000 ms QRS Dur : 088 ms QT Int : 352 ms P-R-T Axes : 000 -17 075 degrees QTc Int : 428 ms ATRIAL FIBRILLATION SEPTAL INFARCT (CITED ON OR BEFORE 13-AUG-2016) NONSPECIFIC ST ABNORMALITY ABNORMAL ECG WHEN COMPARED WITH ECG OF 20-AUG-2016 12:21, NO SIGNIFICANT CHANGE WAS FOUND Confirmed by MD MARION, NEELA ([id number]) on 10/11/2016 4:32:39 PM Referred By: Confirmed By:NEELA SCHULTZ MD
[2016-10-11] MEDS ORDERED: WARFARIN NA 5 MG TABLET (UD) PO SCH (18:00)
--- NOTE | 2016-10-11 18:21 | CON.CARD ---
Cardiology Consult (text) - Consultation Consultation Note: CC: HTN 71-year-old h/o hypertension, hypercholesterolemia, atrial fibrillation, cerebrovascular accident x2 (October 2015 & July 2016; with residual right upper extremity weakness), ckd, 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 Patient states that for the past month he has uncontrolled blood pressures. Asx. Per report, patient was noted to have a fluctuating systolic blood pressure of 180-190, which is atypical for him. Although measurements taken off anti- hypertensives. Per report, patient refusing meds b/c he feels that they are not working. Unclear for how long he has been refusing medications. He denies fever, chills, sweats, cough, n/v/d, diaphoresis, headache, rashes. He denies jaw/ back pain, chest pain, lower extremity pain/swelling, sob, orthopnea, pnd, decreased appetite, bleeding or At baseline, patient has residual Rt sided weakness, but can walk with cane. PMHx/Past Surgical History: per hpi Social History: No tobacco, ETOH and recreational drug use. fam hx: no premature cad ros: per hpi Ambulatory Orders Atorvastatin Ca [Lipitor] 40 mg PO HS tablet 08/20/16 Hydralazine HCl [Apresoline -] 100 mg PO BID tablet 08/20/16 Labetalol HCl [Normodyne -] 200 mg PO BID tablet 08/20/16 Lisinopril [Prinivil] 40 mg PO DAILY tablet 08/20/16 Sennosides [Senna -] 1 tab PO BID tablet 08/20/16 Warfarin Na [Coumadin] 6 mg PO DAILY@1800 10/11/16 Current Medications Atorvastatin Calcium (Lipitor -) 40 mg PO HS [facility] Last Admin: 10/11/16 21:14 Dose: 40 mg Hydralazine HCl (Apresoline -) 100 mg PO BID [facility] Last Admin: 10/11/16 21:13 Dose: 100 mg Labetalol HCl (Normodyne -) 200 mg PO BID [facility] Last Admin: 10/11/16 21:14 Dose: 200 mg Lisinopril (Prinivil) 40 mg PO DAILY [facility] Ondansetron HCl (Zofran Injection) 4 mg IVPB Q6H PRN PRN Reason: NAUSEA Senna (Senna -) 1 tab PO BID [facility] Last Admin: 10/11/16 21:14 Dose: 1 tab Vital Signs - 24 hr 10/11/16 10/11/16 10/11/16 11:09 15:26 16:43 Temperature 98.7 F Pulse Rate 88 Pulse Rate [ 51 L 97 H Apical] Respiratory 20 18 18 Rate Blood Pressure 165/110 Blood Pressure 182/106 134/72 [Arm] O2 Sat by Pulse 100 100 100 Oximetry (%) Intake & Output 10/09/16 10/10/16 10/11/16 10/12/16 07:59 07:59 07:59 07:59 Weight 200 lb nad, calm jvd flat, neck supple ctab, nl effort irregular, nl s1, s2 no mrg + bs soft nt nd ext without e/c/c diminished dp/pt aaox3 no carotid bruits CBC, BMP 10/11/16 12:00 10/11/16 12:00 Laboratory Tests 10/11/16 10/11/16 12:00 13:49 INR 3.64 H D Total Bilirubin 0.3 D AST 17 ALT 15 Alkaline Phosphatase 81 Creatine Kinase 473 H CK-MB (CK-2) 3.626 H Troponin I 0.03 D Albumin 3.6 D images and reports reviewed: EKG: afib. anterior q waves. non-specific t wave abnormalities. no acute ischemic changes CXR: Cardiomegaly, no infiltrates echo: mod lvh. nl lv size/fn. nl rv size/fn. severe lae, mod walter, mild-mod mac. 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 HTN - bp controlled here on current regimen. con't to monitor. - trop neg x 1, con't brenda. - tsh severe mr - patient with moderate lvh (no mention of obstruction or ELOINA), and moderate to severe biatrial dilation. Can presume he has diastolic dysfunction. Would give trial of lasix iv x 1 in am. - no clinical signs or symptoms of valvular decompensation. - has severe mr with recent onset of afib (07/2016), needs outpatient f/u and more detailed assessment of valve by echo once bp improved. Technically, meets criteria for surgical intervention. - daily weights, bmp afib - currently rate control labile on labetolol. Cont to monitor, may need to switch to alternate av ronnie abhijeet. - con't AC with coumadin. dosing per inr. h/o CVA - most recent CVA in the setting of new onset afib. - no new neurologic deficits - bp control as above - con't ac, - con't statin
[2016-10-11] MEDS ORDERED: ONDANSETRON 4 MG/2 ML VIAL IVPB PRN (18:58)
[2016-10-11] MEDS: hydrALAZINE HCL 50 MG TABLET (FP) PO SCH (21:13)
[2016-10-11] MEDS: SENNOSIDES 8.6MG TABLET (FP) PO SCH (21:14)
[2016-10-11] MEDS: ATORVASTATIN CA 40 MG TABLET (FP) PO SCH (21:14)
[2016-10-11] MEDS: LABETALOL HCL 200 MG TABLET (FP) PO SCH (21:14)
[2016-10-11 21:53] LABS: TROPONIN I 0.04 ng/ml (0.00-0.05)
[2016-10-12] MEDS ORDERED: FUROSEMIDE 40 MG/4 ML INJECTABLE VIAL IVPUSH ONE (08:00)
[2016-10-12 08:39] LABS: BASOPHIL 0.7 % (0-2.0); MCH 28.8 pg (25.7-33.7); MCHC 32.8 g/dl (32.0-35.9); MEAN CELL VOLUME 87.6 fl (80-96); MEAN PLT VOLUME 10.5 fl (7.5-11.1); NEUTROPHILS 51.7 % (42.8-82.8); PLATELET COUNT 164 K/MM3 (134-434); RDW 14.9 % (11.9-15.9); WHITE BLOOD COUNT 5.3 K/mm3 (4.0-10.0)
[2016-10-12 08:42] LABS: INR 3.19 (0.82-1.09); PROTHROMBIN TIME (PATIENT) 35.9 SEC (9.98-11.88)
[2016-10-12 09:08] LABS: ALBUMIN 3.5 g/dl (3.4-5.0); BILIRUBIN,TOTAL 0.5 mg/dL (0.2-1.0); CALCIUM 8.2 mg/dL (8.5-10.1); CREATININE 1.3 mg/dL (0.7-1.3); THYROID STIMULATING HORMONE 1.53 uIU/ml (0.358-3.74); TOT PROT 6.6 g/dl (6.4-8.2); TROPONIN I 0.04 ng/ml (0.00-0.05)
[2016-10-12] MEDS: LABETALOL HCL 200 MG TABLET (FP) PO SCH ×2 (10:17→22:30)
[2016-10-12] MEDS: LISINOPRIL 20 MG TABLET (FP) PO SCH (10:17)
[2016-10-12] MEDS: SENNOSIDES 8.6MG TABLET (FP) PO SCH ×2 (10:17→22:30)
[2016-10-12] MEDS: hydrALAZINE HCL 50 MG TABLET (FP) PO SCH ×2 (10:17→22:29)
--- NOTE | 2016-10-12 11:51 | PN ---
Progress Note, Physician History of Present Illness: No events No complaints TEle: Afib 80-90s - Current Medication List Current Medications: Active Medications Atorvastatin Calcium (Lipitor -) 40 mg PO HS [facility] Last Admin: 10/11/16 21:14 Dose: 40 mg Hydralazine HCl (Apresoline -) 100 mg PO BID [facility] Last Admin: 10/12/16 10:17 Dose: 100 mg Labetalol HCl (Normodyne -) 200 mg PO BID [facility] Last Admin: 10/12/16 10:17 Dose: 200 mg Lisinopril (Prinivil) 40 mg PO DAILY [facility] Last Admin: 10/12/16 10:17 Dose: 40 mg Ondansetron HCl (Zofran Injection) 4 mg IVPB Q6H PRN PRN Reason: NAUSEA Senna (Senna -) 1 tab PO BID [facility] Last Admin: 10/12/16 10:17 Dose: 1 tab - Objective Vital Signs: Vital Signs Temperature 98 F 10/12/16 09:48 Pulse Rate 88 10/12/16 09:48 Respiratory Rate 18 10/12/16 09:48 Blood Pressure 142/90 10/12/16 09:48 O2 Sat by Pulse Oximetry (%) 98 10/12/16 03:00 Constitutional: Yes: No Distress, Calm Eyes: Yes: Other (Blind) HENT: Yes: Atraumatic Neck: Yes: WNL Cardiovascular: Yes: Pulse Irregular, Murmur Respiratory: Yes: WNL Gastrointestinal: Yes: WNL Extremities: Yes: WNL Edema: No Labs: CBC, BMP 10/12/16 06:00 10/12/16 06:00 INR, PTT INR 3.19 (0.82-1.09) H 10/12/16 06:00 Assessment/Plan 71-year-old h/o hypertension, hypercholesterolemia, atrial fibrillation, cerebrovascular accident x2 (October 2015 & July 2016; with residual right upper extremity weakness), ckd, 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 HTN - bp better controlled here (now 112-140/50-70mmHg) on current regimen. of Lisinopril, labatelol and hydral. con't to monitor. - tsh severe mr - patient with moderate lvh (no mention of obstruction or ELOINA), and moderate to severe biatrial dilation. Can presume he has diastolic dysfunction. -Singel dose lasix given this AM - no clinical signs or symptoms of valvular decompensation. - has severe mr with recent onset of afib (07/2016), needs outpatient f/u and more detailed assessment of valve by echo once bp improved. Technically, meets criteria for surgical intervention. - daily weights, bmp afib - currently rate control labile on labetolol. - con't AC with coumadin. dosing per inr. h/o CVA - most recent CVA in the setting of new onset afib. - no new neurologic deficits - bp control as above - con't ac, - con't statin
--- NOTE | 2016-10-12 14:16 | PN ---
Progress Note (short form) - Note Progress Note: currently asymptomatic. states that he is complaint with his home medication but has an issue with one of his [employer] and she does not lay out his medications for him. denies CP, SOB, fever, chills, N/V/C/D Current Medications Generic Name Dose Route Start Last Admin Trade Name Freq PRN Reason Stop Dose Admin Atorvastatin Calcium 40 mg 10/11/16 22:00 10/11/16 21:14 Lipitor - PO 40 mg HS JED Administration Hydralazine HCl 100 mg 10/11/16 22:00 10/12/16 10:17 Apresoline - PO 100 mg BID JED Administration Labetalol HCl 200 mg 10/11/16 22:00 10/12/16 10:17 Normodyne - PO 200 mg BID JED Administration Lisinopril 40 mg 10/12/16 10:00 10/12/16 10:17 Prinivil PO 40 mg DAILY JED Administration Ondansetron HCl 4 mg 10/11/16 18:58 Zofran Injection IVPB Q6H PRN NAUSEA Senna 1 tab 10/11/16 22:00 10/12/16 10:17 Senna - PO 1 tab BID JED Administration Last Vital Signs Temp Pulse Resp BP Pulse Ox 98 F 88 18 142/90 99 10/12/16 09:48 10/12/16 09:48 10/12/16 09:48 10/12/16 09:48 10/12/16 09:00 General NAD HEENT corneal opacification B/L CV S1 S2 irregular +murmur Lungs CTA B/L no wheezing/rales/rhonchi extremities no pedal edema CBCD WBC 5.3 K/mm3 (4.0-10.0) 10/12/16 06:00 RBC 4.02 M/mm3 (4.00-5.60) 10/12/16 06:00 Hgb 11.6 GM/dL (11.7-16.9) L 10/12/16 06:00 Hct 35.2 % (35.4-49) L 10/12/16 06:00 MCV 87.6 fl (80-96) 10/12/16 06:00 MCHC 32.8 g/dl (32.0-35.9) 10/12/16 06:00 RDW 14.9 % (11.9-15.9) 10/12/16 06:00 Plt Count 164 K/MM3 (134-434) 10/12/16 06:00 MPV 10.5 fl (7.5-11.1) 10/12/16 06:00 CMP Sodium 145 mmol/L (136-145) 10/12/16 06:00 Potassium 3.9 mmol/L (3.5-5.1) 10/12/16 06:00 Chloride 109 mmol/L (98-107) H 10/12/16 06:00 Carbon Dioxide 26 mmol/L (21-32) 10/12/16 06:00 Anion Gap 10 (8-16) 10/12/16 06:00 BUN 17 mg/dL (7-18) 10/12/16 06:00 Creatinine 1.3 mg/dL (0.7-1.3) 10/12/16 06:00 Creat Clearance w eGFR 54.57 (>60) 10/12/16 06:00 Calcium 8.2 mg/dL (8.5-10.1) L 10/12/16 06:00 Total Bilirubin 0.5 mg/dL (0.2-1.0) D 10/12/16 06:00 AST 15 U/L (15-37) 10/12/16 06:00 ALT 15 U/L (12-78) 10/12/16 06:00 Alkaline Phosphatase 78 U/L (45-117) 10/12/16 06:00 Total Protein 6.6 g/dl (6.4-8.2) 10/12/16 06:00 Albumin 3.5 g/dl (3.4-5.0) 10/12/16 06:00 A/P 71yo M with PMH legally blind, HTN, dyslipidemia, afib on coumadin, 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 HTN urgency- now resolved. re-started home medications. seems pt does not take his medications but requires the bottles to be opened for him which he has some difficulty with one of the [employer] who does not do that for him. cardiac enzymes neg x3. 2. noncompliance/irribility- expressed this today during our discussion, however seems to be stemmed from poor reliationship with one of the aids. he prefers a different aid which he has a good relationship with (nakul). psych called for clearance? 3. Afib on coumadin- INR supratherapeutic. will hold today and restart at lower dose tomorrow. cont rate control 4. severe MR-outpatient workup 5. CVA- on coumadin, statin 6. DVT ppx- coumadin Visit type - Emergency Visit Emergency Visit: Yes ED Registration Date: 10/11/16 Care time: The patient presented to the Emergency Department on the above date and was hospitalized for further evaluation of their emergent condition. - New Patient This patient is new to me today: Yes Date on this admission: 10/12/16 - Critical Care Critical Care patient: No - Discharge Referral Referred to [facility] Med [facility] No
[2016-10-12] MEDS ORDERED: WARFARIN NA 3 MG TABLET PO ONE (16:48)
[2016-10-12] MEDS: ATORVASTATIN CA 40 MG TABLET (FP) PO SCH (22:29)
[2016-10-13 08:50] VITALS: BP 139/87; PULSE 96; TEMP 98
[2016-10-13] MEDS: LABETALOL HCL 200 MG TABLET (FP) PO SCH (09:34)
[2016-10-13] MEDS: LISINOPRIL 20 MG TABLET (FP) PO SCH (09:34)
[2016-10-13] MEDS: hydrALAZINE HCL 50 MG TABLET (FP) PO SCH (09:34)
[2016-10-13] MEDS: SENNOSIDES 8.6MG TABLET (FP) PO SCH (09:34)
[2016-10-13 10:17] LABS: INR 2.56 (0.82-1.09); PROTHROMBIN TIME (PATIENT) 28.7 SEC (9.98-11.88)
--- NOTE | 2016-10-13 11:19 | PN ---
[id number] - Current Medication List Current Medications: Active Medications Atorvastatin Calcium (Lipitor -) 40 mg PO [facility] Last Admin: 10/12/16 22:29 Dose: 40 mg Hydralazine HCl (Apresoline -) 100 mg PO BID [facility] Last Admin: 10/13/16 09:34 Dose: 100 mg Labetalol HCl (Normodyne -) 200 mg PO BID [facility] Last Admin: 10/13/16 09:34 Dose: 200 mg Lisinopril (Prinivil) 40 mg PO DAILY [facility] Last Admin: 10/13/16 09:34 Dose: 40 mg Ondansetron HCl (Zofran Injection) 4 mg IVPB Q6H PRN PRN Reason: NAUSEA Senna (Senna -) 1 tab PO BID [facility] Last Admin: 10/13/16 09:34 Dose: 1 tab Warfarin Sodium (Coumadin -) 5 mg PO ONCE@1800 ONE Stop: 10/13/16 18:01 - Objective Vital Signs: Vital Signs Temperature 98.0 F 10/13/16 08:47 Pulse Rate 96 H 10/13/16 08:47 Respiratory Rate 18 10/13/16 08:49 Blood Pressure 139/87 10/13/16 08:47 O2 Sat by Pulse Oximetry (%) 100 10/13/16 08:49 Constitutional: Yes: No Distress, Calm Eyes: Yes: Other (Bilateral blindness) HENT: Yes: WNL Neck: Yes: WNL Cardiovascular: Yes: Pulse Irregular Respiratory: Yes: CTA Bilaterally Gastrointestinal: Yes: WNL Extremities: Yes: WNL Edema: No Labs: CBC, BMP 10/12/16 06:00 10/12/16 06:00 INR, PTT INR 2.56 (0.82-1.09) H 10/13/16 09:10 Assessment/Plan HTN: -Better controlled and stable -Continue current regimen Afib -INR 2.56 today -Would give 5mg tonight
--- NOTE | 2016-10-13 12:12 | DS ---
Physical Exam: SUBJECTIVE: Patient seen and examined. currently asymptomatic. denies CP, SOB, fever, chills, palpitations OBJECTIVE: Vital Signs Period Temp Pulse Resp BP Sys/Krishna Pulse Ox Last 24 Hr 97.9 F-98.2 F 84-96 18-22 112-144/51-87 100-100 PHYSICAL EXAM GENERAL: The patient is awake, alert, and fully oriented, in no acute distress. HEAD: Normal with no signs of trauma. EYES: corneal clouding B/L EOMI ENT: Ears normal, nares patent, oropharynx clear without exudates, moist mucous membranes. NECK: Trachea midline, full range of motion, supple. LUNGS: Breath sounds equal, clear to auscultation bilaterally, no wheezes, no crackles, no accessory muscle use. HEART: Irregular rate and rhythm, S1, S2 + murmur without rub or gallop. ABDOMEN: Soft, nontender, nondistended, normoactive bowel sounds, no guarding, no rebound, no hepatosplenomegaly, no masses. EXTREMITIES: 2+ pulses, warm, well-perfused, no edema. NEUROLOGICAL: Cranial nerves II through XII grossly intact. speech slightly dysarthric PSYCH: Normal mood, normal affect. SKIN: Warm, dry, normal turgor, no rashes or lesions noted. 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 He reports that he does not understand his medication regimen and that his blood pressure has been [id number]. subsequent hospital course medicine observation. cardio consulted. home medications resumed and BP improved. appears the issue is with his SAMPLER TESTER whom he does not get along with. she does not lay his medications out for him. they do not get along. pt appeared to be competent and understand his medications. he got agitated speaking out this aid but was able to communicate with patient he was aware of his limitations and need for help. coumadin dose adjusted to 5mg due to being supratherpeutic. d/c home. CM called for alternate aid to be available tomorrow. pt aware and agreeable to going home Minutes to complete discharge: 40 Discharge Summary Reason For Visit: HYPERTENSION Current Active Problems Cardiomegaly (Acute) DVT prophylaxis (Acute) HTN (hypertension) (Acute) Condition: Improved - Instructions Diet, Activity, Other Instructions: we have adjusted your coumadin dosing. you will need to have your INR repeated in 2 days to ensure your level is therapeutic. follow your home blood pressure medications. FOllow up with your primary care doctor in 1 week Return to the hospital if you develop chest pain, palpitations or diffcutly breathing. Referrals: Toya Gonzales MD [Primary Care Provider] - Disposition: HOME - Home Medications Comprehensive Discharge Medication List: Ambulatory Orders Atorvastatin Ca [Lipitor] 40 mg PO HS tablet 08/20/16 Hydralazine HCl [Apresoline -] 100 mg PO BID tablet 08/20/16 Labetalol HCl [Normodyne -] 200 mg PO BID tablet 08/20/16 Lisinopril [Prinivil] 40 mg PO DAILY tablet 08/20/16 Sennosides [Senna -] 1 tab PO BID tablet 08/20/16 Warfarin Na [Coumadin] 5 mg PO DAILY@1800 #7 tablet 10/13/16 This patient is new to me today: No Emergency Visit: Yes ED Registration Date: 10/11/16 Care time: The patient presented to the Emergency Department on the above date and was hospitalized for further evaluation of their emergent condition. Critical Care patient: No - Discharge Referral Referred to [facility] No
[2016-10-13] MEDS ORDERED: WARFARIN NA 5 MG TABLET (UD) PO ONE (18:00)
== END 2016-10-13 14:00 | disposition home health service (06) ==
LOC: JER 10:57 → JERBED 17:32 → J4W 20:04
PROVIDERS: ADMIT Internal Medicine; ATTEND Internal Medicine
DX: I16.0 Hypertensive urgency (principal); E78.5 Hyperlipidemia, unspecified; I48.91 Unspecified atrial fibrillation; Z86.73 Personal history of transient ischemic attack (TIA), and cerebral infarction without residual deficits; I51.7 Cardiomegaly
CPT/HCPCS: 36415; 71010-TC; 80053; 80061; 82550; 82553; 83036; 83721; 84443; 84484; 85025; 85610; 86850; 86900; 86901; 93005; 93010; 93306-TC; 99283-25; G0378